=== PATIENT | male | born 1935 | race Caucasian/White ===

== ENCOUNTER 2020-08-05 07:58 | Outpatient (CLI) | payer MEDICARE, OTHER, SELFPAY ==
--- NOTE | 2020-08-05 | CT_ITS ---
WS: [id number] CT ABDOMEN AND PELVIS WITH CONTRAST HISTORY: GENERAL ABD PAIN TECHNIQUE: Imaging performed of the abdomen and pelvis with IV contrast. Single phase imaging of the abdomen. Coronal and sagittal reformats are submitted. All CT scans at [facility] use at least one of these dose optimization techniques: automated exposure control; mA and/or kV adjustment per patient size (includes targeted exams where dose is matched to clinical indication); or iterativ e reconstruction. IV CONTRAST: Omnipaque 300; 95 mL IV. Oral contrast: Yes. DLP: 1130.93 mGycm COMPARISON: None available. Lower thorax: Chronic emphysematous changes at the lung bases. Heart is normal size. Small hiatal her armando. Portion of the pancreas extends into the hiatal hernia. There are also additional small lymph no john within the fat. Liver/biliary system: Normal size liver. No intrahepatic duct dilatation. Gallbladder: Normal. No gallstones or wall thickening. No pericholecystic fluid. Pancreas: Atrophic pancreas. Portion of body of the pancreas extends superiorly into the hiatal herni a. 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 Adrenal glands: Normal. Right kidney: Cortical cyst upper pole measures 1.2 cm. No obstruction. Left kidney: Cortical cyst upper pole measures 1.2 cm. There are a few additional 2 small to characte rize hypodensities from the cortex. No obstruction. Aorta: Moderate atherosclerosis with no aneurysm. Lymphadenopathy: There are numerous lymph nodes throughout the abdomen and pelvis. Small lymph nodes surrounding the distal esophagus. Central mesenteric lymph nodes are subcentimeter. Larger lymph node s in the RIGHT lower quadrant and RIGHT pelvis. Lymph nodes measure up to 12 mm in short axis diamete r. Free fluid: None. GI tract: No GI tract obstruction. Mild thickening of the antrum. There is diffuse constipation. No c olonic wall thickening identified. The appendix is normal. Abdominal wall: Unremarkable abdominal wall. No hernia. Pelvis: Mild thickening of the bladder wall and a small LEFT lateral diverticulum measuring 13 mm. Pr ostate gland is slightly enlarged encroaching into the bladder. No enlarged inguinal lymph nodes. Bones: Advanced degenerative changes throughout the lumbar spine. Moderate RIGHT convex curvature lum bar spine. 20% compression fracture T12. CT/CT abdomen pelvis w con* [id number] IMPRESSION: 1. Numerous mesenteric and RIGHT lower quadrant/pelvis lymph nodes. Combinatio n of indeterminate and slightly enlarged lymph nodes. Consider lymphoma and met astatic adenopathy. 2. Diffuse constipation. 3. No adrenal mass. 4. Moderate size hiatal hernia with the pancreas being elevated into the herni a and adjacent small lymph nodes and venous congestion. 5. 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 6. Moderate atherosclerosis aorta. 7. No evidence for recurrent hernia.
[2020-08-05] MEDS: iohexol 300 mg/mL 100 mL Btl IV (10:01)
[2020-08-05] MEDS: iohexol 300 mg/mL 50 mL Btl PO (10:02)
== END 2020-08-05 07:59 | disposition home or self-care (01) ==
LOC: RADWPI 08:06
PROVIDERS: Family Provider Nurse Practitioner Family; PCP Nurse Practitioner Family; Visit Provider Nurse Practitioner Family
DX: R10.84 Generalized abdominal pain (principal); K59.00 Constipation, unspecified; K44.9 Diaphragmatic hernia without obstruction or gangrene; I70.0 Atherosclerosis of aorta
CPT/HCPCS: 74177; Q9967

== ENCOUNTER → 2020-08-16 17:06 | Outpatient (BNVA) | payer MEDICARE, OTHER, SELFPAY | PROVIDERS: Family Provider Nurse Practitioner Family; PCP Nurse Practitioner Family; Visit Provider Surgery | DX: Z11.59 Encounter for screening for other viral diseases (principal) | CPT/HCPCS: 87635 ==

== ENCOUNTER 2020-08-19 12:39 | Outpatient (CLI) | payer MEDICARE, OTHER, SELFPAY ==
--- NOTE | 2020-08-19 13:00 | CT_ITS ---
WS: [id number] CT scan of the chest with IV contrast, additional two-dimensional coronal and sagittal reconstruction was performed. 08/19/2020 Clinical Data: enlarged lymph nodes Comparison: CT chest, 08/28/2013. DLP: 897.[address] scans at [facility] use at least one of these dose optimization techniques: automat ed exposure control; mA and/or kV adjustment per patient size (includes targeted exams where dose is matched to clinical indication); or iterative reconstruction. Findings: No nodules, masses or effusions are seen. The lungs show hyperexpansion. There are peripheral interst itial changes in the left upper lobe and left lower lobe. Most likely these changes are result of chr onic interstitial lung disease. The thyroid gland shows normal enhancement. The heart size is normal with no pericardial effusion. The trachea bifurcates normally into the bronchi. The pulmonary arteria l system demonstrates no abnormalities or dilatations. The descending thoracic aorta shows calcificat ion and a small mural thrombus. There is no axillary or significant mediastinal adenopathy. There is a hiatal hernia which contains fatty material. The upper abdomen demonstrates bilateral renal cortical cysts. There is a small splenic remnant adjac ent to the posterior lateral upper left abdominal wall unchanged. Degenerative change of all thoracic vertebral bodies is seen with a T12 compression fracture. CT/CT chest w con* [id number] Impression: 1. Peripheral interstitial changes in the left upper lobe and left lower lobe m ost consistent with chronic interstitial lung disease. 2. Hiatal hernia. 3. Negative for lung nodules or masses.
[2020-08-19] MEDS: iodixanol 320 mg/mL 100mL Btl IV (13:18)
== END 2020-08-19 12:40 | disposition home or self-care (01) ==
LOC: RADWPI 12:43
PROVIDERS: Family Provider Nurse Practitioner Family; PCP Nurse Practitioner Family; Visit Provider Surgery
DX: R59.9 Enlarged lymph nodes, unspecified (principal); K44.9 Diaphragmatic hernia without obstruction or gangrene
CPT/HCPCS: 71260; Q9967

== ENCOUNTER 2020-08-22 08:01 | Day surgery (SDC) | payer MEDICARE, OTHER, SELFPAY ==
[2020-08-18 10:10] VITALS: BMI 24.3
[2020-08-22 07:59] VITALS: BP 191/104; PULSE 96; RESP 18; TEMP 37.2; O2SAT 94
[2020-08-22] MEDS: sodium chloride 0.9% 1,000 ML 30 ML IV (08:15)
--- NOTE | 2020-08-22 08:17 | ANES.PREANE2 ---
Pre-Anesthetic Assessment Pre-Anesthetic Assessment: Height/Weight: Height 1.78 m Weight 77.111 kg Temp Pulse Resp BP Pulse Ox 98.9 F 96 18 191/104 94 08/22/20 07:59 08/22/20 07:59 08/22/20 07:59 08/22/20 07:59 08/22/20 07:59 Preop Diagnosis: Abdominal lymphadenopathy Proposed Procedure: Operation Date: 08/22/20 09:10 Proposed Procedures p Colonoscopy(Not Applicable) - Nasir Martinez MD Familial anesthetic complications: PONV - kept overnight Was Beta Angel taken within 24 hours: N/A Last intake: NPO > 8 hrs Social: Social History: No alcohol and No tobacco Exam: Pre-Anes Outpt Exam: alert, oriented x 3, clear to auscultation bilaterally and regular rate & rhythm Airway: Cervical ROM: WNL MP: 4 Dentition: Other (bridge) Additional comments: small mouth opening CV/HEM: CV/HEM: HTN GI: GI: GERD Anesthetic Plan: ASA status: 2 Anesthesia: MAC Risk of > 500 ml blood loss (7ml/kg in children): No PFSH Anesthesia PFSH: Medical History (Updated 08/22/20 @ 07:25 by Nasir Martinez MD) GERD (gastroesophageal reflux disease) Glaucoma HTN (hypertension), benign Hypertension Surgical History H/O circumcision H/O left inguinal hernia repair H/O splenectomy Family History Other Cancer Denies family history of Diabetes CAD (coronary artery disease) Anesthesia complication Bleeding disorder Social History Smoking and tobacco status: never smoked Household members: spouse Marital status: Current occupational status: retired History of recent travel: No Data Anesthesia Cardiac Studies: No Data to Display
--- NOTE | 2020-08-22 08:23 | W.PM.OPSUD ---
Surgery/Procedure H&P Update DATE OF PROCEDURE: August 22, 2020 DATE H&P PERFORMED: 08/16/20 H&P UPDATE INFORMATION: I have reviewed H&P completed within last 30 days, I have examined patient prior to procedure and No changes to prior documentation PREOP DIAGNOSIS: Abdominal lymphadenopathy PLANNED PROCEDURE: Operation Date: 08/22/20 09:10 Proposed Procedures p Colonoscopy(Not Applicable) - Nasir Martinez MD
[2020-08-22 09:23] VITALS: BP 148/75; PULSE 60; RESP 16; TEMP 36.3; O2SAT 93
[2020-08-22 09:57] VITALS: BP 139/81; PULSE 60; RESP 18; O2SAT 98
--- NOTE | 2020-08-22 10:10 | ANE.PACU2 ---
Inpatient post-anesthesia follow up: Airway intact: Yes Vital signs: Temperature 97.4 F Pulse Rate 60 Respiratory Rate 18 Blood Pressure 139/81 Pulse Oximetry 98 Oxygen Delivery Me thod Room Air Oxygen Flow Rate Fraction of Inspir ed Oxygen Hydration adequate: Yes Nausea and vomiting: No Pain level: 1 Mental status: Baseline
== END 2020-08-22 10:10 | disposition home or self-care (01) ==
PROVIDERS: PCP Nurse Practitioner Family; Visit Provider Surgery
PROC: 0DJD8ZZ Inspection of Lower Intestinal Tract, Via Natural or Artificial Opening Endoscopic (ICD-10-PCS; CPT 45378; principal; 2020-08-22 09:10)
PROC: 0DJ08ZZ Inspection of Upper Intestinal Tract, Via Natural or Artificial Opening Endoscopic (ICD-10-PCS; CPT 43235; 2020-08-22 09:10)
DX: R59.1 Generalized enlarged lymph nodes (principal); K29.70 Gastritis, unspecified, without bleeding; K29.80 Duodenitis without bleeding; K64.8 Other hemorrhoids; K57.30 Diverticulosis of large intestine without perforation or abscess without bleeding; R10.9 Unspecified abdominal pain; Z79.82 Long term (current) use of aspirin; K21.9 Gastro-esophageal reflux disease without esophagitis; I10 Essential (primary) hypertension
CPT/HCPCS: 12345; 43239; 88305; G0121; J2704; J7030

== ENCOUNTER 2020-09-07 12:34 | Outpatient (CLI) | payer MEDICARE, OTHER, SELFPAY ==
[2020-09-07 13:51] LABS: Basophils # 0.1 10^3/uL (0.0-0.1); Basophils % 1.1 %; Eosinophils # 0.2 10^3/uL (0.0-0.8); Eosinophils % 1.7 %; Hematocrit 44.4 % (42.0-52.0); Hemoglobin 14.9 g/dL (11.7-16.6); Lymphocytes # 1.9 10^3/uL (0.8-4.8); Lymphocytes % 17.2 %; Mean Corpuscular HGB Conc 33.6 g/dL (30.0-36.0); Mean Corpuscular Hemoglobin 31.3 pg (28.0-34.0); Mean Corpuscular Volume 93.3 fL (80-94); Mean Platelet Volume 11.3 fL (7.4-10.4); Monocytes # 1.5 10^3/uL (0.2-0.9); Monocytes % 13.5 %; Neutrophils # 7.19 10^3/uL (1.8-7.7); Neutrophils % 66.2 %; Nucleated Red Blood Cells % 0 %; Platelet Count 293 10^3/cmm (130-400); Red Blood Count 4.76 10^6/uL (4.1-5.3); Red Cell Distribution Width 13.3 % (12.1-15.1); White Blood Count 10.9 10^3/uL (4.0-10.0)
[2020-09-07 14:42] LABS: Alanine Aminotransferase 21 U/L (0-41); Alkaline Phosphatase 121 IU/L (40-130); Anion Gap 14.3 (5-19); Aspartate Amino Transferase 20 U/L (0-40); Blood Urea Nitrogen 20 mg/dL (8-23); Calcium 9.1 mg/dL (8.5-10.5); Carbon Dioxide 24 mmol/L (22-29); Chloride 100 mmol/L (98-107); Globulin 3.6 g/dL (1.3-4.6); Glucose 132 mg/dL (65-115); Osmolality Calculated 282 mOsm/kg (285-295); Potassium 4.3 mmol/L (3.5-5.1); Sodium 134 mmol/L (136-145); Total Bilirubin 0.4 mg/dL (0.15-1.2); Total Protein 7.6 g/dL (6.6-8.7)
[2020-09-07 15:09] LABS: Lactate Dehydrogenase 202 U/L (135-225)
--- NOTE | 2020-09-07 15:11 | ONC CON_ITS ---
Dr. Ramirez New Patient Note Patient: Salbador Blankenship Unit #: [id number]: 1935 Dicatated By: Christiane Ramirez M.D.Date of Visit: Sep 07, 2020 Onc MED New Patient/Consult Referring Physician: Dr. TIFFANY HOLLINGSWORTH M.D. History of Present Illness: Mr. Dion Rios, is a 71-year-old gentleman with history of gross hematuria initially seen by urology on July 27, [address] scan of abdomen pelvis shows bladder mass and patient underwent cystoscopy/TURBT on August 02, 2020 and intraoperative findings include 2 areas of transitional cell carcinoma, one lateral to the left ureteral orifice and other on the posterior floor. 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 CT scan of abdomen pelvis done on September 02, 2020 showed left eccentric bladder wall thickening with calcification suspicious for neoplasm. Heterogeneously enhancing nodular enlarged prostate with indentation on the bladder. Normal seminal vesicles. A few slight prominent aorto caval lymph nodes largest measuring 8 mm. 4.4 mm left upper lobe noncalcified pulmonary nodule follow-up scan in 12 months recommended. Patient was seen by Dr. Mathias different treatment options were discussed, patient was referred to oncology clinic to discuss about role of chemotherapy and other options including bladder preservation and neoadjuvant chemotherapy. Patient denies any hematuria denies any lower abdominal pain denies any diarrhea or constipation denies any nausea or vomiting denies any fever chills denies any jaundice denies any hemoptysis or hematemesis. Patient has history of 55-year plus smoking quit about 5 years ago because of COPD, denies alcohol use. Past Medical History: Mr. Blankenship's medical history consists of gastroesophageal reflux disease, glaucoma, and hypertension. Past Surgical History: Mr. Sofia surgical/procedural history consists of hernia repair and splenectomy. Medications: amLODIPine Besylate 1 Tablet (of 5 mg) Oral daily, Aspirin 1 Tablet (of 81 mg) Tablet, enteric coated Oral daily, Docusate Sodium 1 Tablet (of 100 mg) Oral daily, Fish Oil 1 Capsule Oral daily, Latanoprost 1 Drop(s) (of 0.005 %) Solution Ophthalmic PRN, LORazepam 1 Tablet (of 0.5 mg) Oral PRN, NexIUM 24HR 1 Tablet (of 20 mg) Tablet, enteric coated Oral daily, Tamsulosin HCl 1 Capsule (of 0.4 mg) Oral daily, traMADol HCl 1 Tablet (of 50 mg) Oral four times a day Allergies: Ciprofloxacin HCl Social History: Mr. Blankenship is and he is retired. Mr. Blankenship quit smoking 60 years ago but had smoked 1.0 pack/day for 10 years. He has no history of drinking. Mr. Blankenship reports the following support systems: lives with spouse, significant other, family, or friends and lives in own house. Family History: Mr. Blankenship's mother at age 76. Mr. Blankenship's father at age 83. Review Of Symptoms: Constitutional - Appetite is diminished and weight is decreasing. No fever, night sweats, or hot flashes. Energy level is [id number], ENMT - No sinus congestion/drainage. No mouth sores. No sore throat or difficulty swallowing, Hematologic/Lymphatic - No abnormal bruising or bleeding, Respiratory - No shortness of breath. No cough. No pleuritic pain or hemoptysis, Cardiovascular - No angina pain. No palpitations, Gastrointestinal - No nausea or vomiting. No heartburn or acid reflux. No diarrhea. Positive for constipation. No blood in the stool or black stools, Genitourinary (M) - No dysuria or hematuria. No urinary frequency. No urgency or incontinence, Musculoskeletal - No joint or bone pain, Neurologic - No headache or dizziness. No numbness or tingling. No other focal neurologic symptoms, Psychiatric - No anxiety or depression. No insomnia. Vital Signs: Performed on Sep 07, 2020 13:35: 8, 23.70, 1.92 sq.m, 70.00 in, 95 % (LOW), 82 /min, 16 /min, 185/98 mm(hg) (HIGH), 99.6 F (HIGH), and 165.2 lbs (HIGH). Performance Status: 0 - Fully active, able to carry on all predisease activities without restrictions. (ECOG) Physical Examination: ENMT - No mouth sores, no thrush, no jaundice, Respiratory - Lungs are clear to auscultation, Cardiovascular - Regular rate and rhythm of heart, Abdomen - Soft, bowel sounds present, Extremities - No visible edema or rash. Lab/Imaging: Most recent lab results are not available for this patient. Impression: Muscle invasive high-grade invasive urothelial carcinoma, nested clear-cell variant with lamina propria invasion per TURBT/cystoscopy done on August 02, 2020 CT scan of abdomen pelvis done on September 02, 2020 showed no pelvic or inguinal lymphadenopathy, and left eccentric bladder wall thickening with calcifications suspicious for neoplasm. Heterogeneous enhancing nodular enlarged prostate with indentation on the bladder. 4.4 mm left lower lobe noncalcified pulmonary nodule follow-up CT scan in 12 months recommended COPD, 50+ years history of smoking, quit 5 years ago Plan: Discussed with patient regarding his disease status and various treatment options, as per NCCN guidelines in patients with muscle invasive bladder cancer if patient has localized disease with no evidence of carcinoma in situ or multifocal involvement, bladder preservation can be considered after maximal resection via TURBT, on the other hand in , multifocal disease or carcinoma in situ involvement, neoadjuvant chemotherapy with dose dense MVAC 3-4 cycles followed by cystectomy is a standard of care. Patient is exploring his options, at this point will refer him to radiation oncology for evaluation regarding bladder preservation and also refer him to Dr. Sandoval, urologist in [facility] for evaluation regarding cystectomy., Patient will return to clinic in 3 weeks with CBC CMP for further discussion Signed By: Christiane Ramirez M.D. <<Signature on File>>
--- NOTE | 2020-09-07 15:46 | ONC CON_ITS ---
Dr. Ramirez New Patient Note Patient: Salbador Blankenship Unit #: [id number]: 1935 Dicatated By: Christiane Ramirez M.D.Date of Visit: Sep 07, 2020 Onc MED New Patient/Consult Referring Physician: Dr. TIFFANY HOLLINGSWORTH M.D. History of Present Illness: Mr. Salbador Blankenship, is a 85-year-old gentleman with a history of left inguinal hernia repair and recently noted some right groin pain and puffiness of few weeks duration, pain was progressive, for which he underwent CT scan of abdomen pelvis on August 05, 2020, which showed numerous lymph nodes throughout the abdomen pelvis. Small lymph nodes surrounding the distal esophagus. Central mesenteric lymph nodes are subcentimeter larger lymph node in the right lower quadrant and right pelvis and lymph nodes measuring 12 mm in short axis. Abdominal wall shows no hernia and CT scan of chest was done on August 19, 2020 which showed no axillary or mediastinal lymphadenopathy and findings suggestive of chronic interstitial lung disease. Patient was referred to surgery and he underwent EGD and colonoscopy on August 22, 2020 which showed nonerosive gastritis and in the sigmoid colon scattered diverticulosis and internal hemorrhoids in the rectum. Patient denies any night sweats, denies any weight loss, denies any recurrent fever, denies any history of recurrent infection, denies any history of chronic diarrhea or constipation, denies any history of jaundice, denies any hematuria denies any history of chronic bladder infection. Patient has chronic mild to moderate right lower quadrant/inguinal area pain for which he is being evaluated by surgery. Patient denies any smoking or alcohol use. Past Medical History: Mr. Blankenship's medical history consists of gastroesophageal reflux disease, glaucoma, and hypertension. Past Surgical History: Mr. Blankenship's surgical/procedural history consists of hernia repair and splenectomy. Medications: amLODIPine Besylate 1 Tablet (of 5 mg) Oral daily, Aspirin 1 Tablet (of 81 mg) Tablet, enteric coated Oral daily, Docusate Sodium 1 Tablet (of 100 mg) Oral daily, Fish Oil 1 Capsule Oral daily, Latanoprost 1 Drop(s) (of 0.005 %) Solution Ophthalmic PRN, LORazepam 1 Tablet (of 0.5 mg) Oral PRN, NexIUM 24HR 1 Tablet (of 20 mg) Tablet, enteric coated Oral daily, Tamsulosin HCl 1 Capsule (of 0.4 mg) Oral daily, traMADol HCl 1 Tablet (of 50 mg) Oral four times a day Allergies: Ciprofloxacin HCl Social History: Mr. Blankenship is and he is retired. Mr. Blankenship quit smoking 60 years ago but had smoked 1.0 pack/day for 10 years. He has no history of drinking. Mr. Blankenship reports the following support systems: lives with spouse, significant other, family, or friends and lives in own house. Family History: Mr. Blankenship's mother at age 76. Mr. Blankenship's father at age 83. Review Of Symptoms: Constitutional - Appetite is diminished and weight is decreasing. No fever, night sweats, or hot flashes. Energy level is [id number], ENMT - No sinus congestion/drainage. No mouth sores. No sore throat or difficulty swallowing, Hematologic/Lymphatic - No abnormal bruising or bleeding, Respiratory - No shortness of breath. No cough. No pleuritic pain or hemoptysis, Cardiovascular - No angina pain. No palpitations, Gastrointestinal - No nausea or vomiting. No heartburn or acid reflux. No diarrhea. Positive for constipation. No blood in the stool or black stools, Genitourinary (M) - No dysuria or hematuria. No urinary frequency. No urgency or incontinence, Musculoskeletal - No joint or bone pain, Neurologic - No headache or dizziness. No numbness or tingling. No other focal neurologic symptoms, Psychiatric - No anxiety or depression. No insomnia. Vital Signs: Performed on Sep 07, 2020 13:35: 8, 23.70, 1.92 sq.m, 70.00 in, 95 % (LOW), 82 /min, 16 /min, 185/98 mm(hg) (HIGH), 99.6 F (HIGH), and 165.2 lbs (HIGH). Performance Status: 0 - Fully active, able to carry on all predisease activities without restrictions. (ECOG) Physical Examination: ENMT - No mouth sores, no thrush, no jaundice, Respiratory - Lungs are clear to auscultation, Cardiovascular - Regular rate and rhythm of heart, Abdomen - Soft, bowel sounds present, Extremities - No visible edema or rash. Lab/Imaging: Most recent lab results are not available for this patient. Impression: Abdominal lymphadenopathy, no organomegaly seen on CT scan of chest abdomen pelvis done in July 2020 showed no axillary or significant mediastinal lymphadenopathy, but there are numerous lymph nodes throughout the abdomen and pelvis. Small lymph nodes surrounding the distal esophagus. Central mesenteric lymph nodes are subcentimeter. Larger lymph nodes are in the right lower quadrant and right pelvis. Lymph node measures up to 12 mm in short axis. Prior splenectomy node autoinfarction. History of left inguinal repair, Hypertension Plan: Discussed with patient regarding his labs which showed White blood count 10.9 hemoglobin 14.9 hematocrit 44.4 platelets 293,000 neutrophils 66% lymphocytes 17%, LDH 202, CMP within normal limits except glucose 132. and CT scan of chest abdomen pelvis which was done in July 2020 shows mild but extensive intra-abdominal lymphadenopathy and distal esophageal lymphadenopathy maximum size was [address] scan of chest abdomen pelvis done in July 2020 etiology remains unclear, could be inflammatory, or subclinical infection or lymphoproliferative disorder cannot be ruled out. Patient has no B symptoms, no peripheral lymphadenopathy no organomegaly. His CBC shows mild leukocytosis could be due to asplenia or underlying myelo/lympho proliferative disorder, or chronic inflammation., We will repeat his CBC with differential in a month, if there is a progression, may consider bone marrow evaluation otherwise we will repeat CT scan of abdomen pelvis in 3 months with special attention to intra-abdominal lymph nodes if there is a progression, consider lymph node biopsy. Case was discussed with Dr. Hollingsworth, surgery, at this point, lymph nodes are too small to biopsy. Patient was advised in case he has any B symptoms like recurrent drenching sweating or fever or weight loss he need to call us otherwise we will see him back in 1 month with CBC with differential and LDH Signed By: Christiane Ramirez M.D. <<Signature on File>>
== END 2020-09-07 12:35 | disposition home or self-care (01) ==
LOC: ONCMED 12:44
PROVIDERS: PCP Nurse Practitioner Family; Visit Provider Internal Medicine Hematology & Oncology
DX: R59.0 Localized enlarged lymph nodes (principal); I10 Essential (primary) hypertension; D72.829 Elevated white blood cell count, unspecified
CPT/HCPCS: 36415; 80053; 83615; 85025; 99204

== ENCOUNTER → 2020-09-16 11:23 | Outpatient (BNVA) | payer MEDICARE, OTHER, SELFPAY | PROVIDERS: PCP Nurse Practitioner Family; Visit Provider Surgery | DX: Z11.59 Encounter for screening for other viral diseases (principal); K46.9 Unspecified abdominal hernia without obstruction or gangrene | CPT/HCPCS: 87635 ==

== ENCOUNTER 2020-09-21 09:03 | Day surgery (SDC) | payer MEDICARE, OTHER, SELFPAY ==
[2020-09-20 11:02] VITALS: BMI 23.6
[2020-09-21] VITALS (7 sets, daily range): BP systolic 126–161; BP diastolic 57–76; PULSE 91–106; RESP 14–22; TEMP 36.5–36.8; O2SAT 93–99
--- NOTE | 2020-09-21 09:26 | W.PM.OPSUD ---
Surgery/Procedure H&P Update DATE OF PROCEDURE: September 21, 2020 DATE H&P PERFORMED: 08/16/20 H&P UPDATE INFORMATION: I have reviewed H&P completed within last 30 days, I have examined patient prior to procedure and No changes to prior documentation PREOP DIAGNOSIS: inguinal hernia PLANNED PROCEDURE: Operation Date: 09/21/20 10:35 Proposed Procedures p Laparoscopic possible open right Inguinal Hernia Repair w/Mesh [id number] k40.90(Right) - Nasir Martinez MD
[2020-09-21] MEDS: sodium chloride 0.9% 1,000 ML 30 ML IV (09:36)
--- NOTE | 2020-09-21 09:55 | ANES.PREANE2 ---
Pre-Anesthetic Assessment Pre-Anesthetic Assessment: Height/Weight: Height 1.78 m Weight 74.843 kg Temp Pulse Resp BP Pulse Ox 98.2 F 106 H 18 161/72 94 09/21/20 09:26 09/21/20 09:26 09/21/20 09:26 09/21/20 09:26 09/21/20 09:26 Preop Diagnosis: inguinal hernia Proposed Procedure: Operation Date: 09/21/20 10:35 Proposed Procedures p Laparoscopic possible open right Inguinal Hernia Repair w/Mesh [id number] k40.90(Right) - Nasir Martinez MD Familial anesthetic complications: PONV Was Beta Angel taken within 24 hours: N/A Last intake: Intake Last Liquid Date 09/20/20 Last Liquid Time 10:00 Last Solid Date 09/20/20 Last Solid Time 10:00 Social: Social History: No alcohol and No tobacco Airway: Cervical ROM: WNL MP: 4 Dentition: Other (bridge) Additional comments: Small mouth opening, with large tongue CV/HEM: CV/HEM: HTN GI: GI: GERD Anesthetic Plan: ASA status: 2 Anesthesia: General Risk of > 500 ml blood loss (7ml/kg in children): No Meds/Allergies Current Medications: Current Medications Generic Name Dose Route Start Last Admin Trade Name Freq PRN Reason Stop Dose Admin Sodium Chloride 1,000 mls @ 30 ml s/hr 09/21/20 09:30 09/21/20 09:36 Sodium Chloride 0.9% IV 09/22/20 09:29 30 mls/hr .Q24H DANNIELLE Administration PFSH Anesthesia PFSH: Medical History GERD (gastroesophageal reflux disease) Glaucoma HTN (hypertension), benign Hypertension Surgical History (Updated 09/21/20 @ 09:38 by Nasir Martinez MD) H/O circumcision H/O esophagogastroduodenoscopy (09/16/20) H/O left inguinal hernia repair H/O splenectomy Status post colonoscopy (09/16/20) Status post right inguinal hernia repair (09/21/20) Family History Other Cancer Denies family history of Diabetes CAD (coronary artery disease) Anesthesia complication Bleeding disorder Social History Smoking and tobacco status: never smoked Household members: spouse Marital status: Current occupational status: retired History of recent travel: No Data Anesthesia Cardiac Studies: No Data to Display
--- NOTE | 2020-09-21 11:38 | PM.OP ---
Operative Report Date of procedure: September 21, 2020 Pre-op Diagnosis: inguinal hernia Post-op Diagnosis: Right reducible indirect inguinal hernia Procedure Done: Laparoscopic total extraperitoneal repair of right reducible indirect inguinal hernia with Surgimax 3D mesh Pathology: none sent Surgeon: Nasir Martinez Anesthesia: General Condition: stable Disposition: PACU Procedure: The patient was taken to the operating room. After IV antibiotic was administered, the abdomen was prepped and draped in a sterile manner. Using a 15 blade, a 1.0 cm transverse incision was made infraumbilically on the right side. Subcutaneous tissue was divided using electrocautery and the anterior rectus sheath divided using an 11 blade. The rectus muscle was retracted laterally and the extraperitoneal space identified. A 11 mm port was placed and 12 mm of pneumoperitoneum was created. A 10 mm 30? scope was introduced and the retrorectus space was opened using the camera up to the pubic symphysis and 5 mm ports were placed in the midline, one 2-fingerbreadths above the pubic symphysis and the other midway between these two ports under direct visualization. Blunt dissection was carried out to open up the tissue in the midline and to the pubic symphysis, which was identified. The dissection was then carried laterally where the iliopubic tract was identified. There was no femoral, obturator or direct hernia noted. The inferior epigastric artery was identified and dissection was carried posterior to it and laterally, the space was opened up to the level of the umbilicus superior to the anterior superior iliac spine. I then proceeded to dissect out the spermatic cord and the indirect hernial sac was reduced . 16 x 10cm Surgimax 3D mesh was rolled and introduced through the 10 mm port and then rolled laterally and apposed well against the abdominal wall to cover the myopectineal orifice completely. 10 Cc of 0.5% Marcaine was infiltrated into the preperitoneal space. The extraperitoneal space was desufflated under direct visualization to ensure no slippage of hernial sac under the mesh. All ports were removed, the anterior rectus fascia at the infraumbilical port closed using figure of eight 0 Vicryl sutures, subcutaneous tissue approximated using 3-0 Vicryl sutures and skin at all three port sites were closed using running subcuticular 4-0 Monocryl sutures and Dermabond. 10 mL of 0.5% Marcaine was infiltrated at the port sites. The patient was stable throughout the procedure.
== END 2020-09-21 12:43 | disposition home or self-care (01) ==
PROVIDERS: PCP Nurse Practitioner Family; Visit Provider Surgery
PROC: (CPT 49650; principal; 2020-09-21 10:35)
DX: K40.90 Unilateral inguinal hernia, without obstruction or gangrene, not specified as recurrent (principal); I10 Essential (primary) hypertension; Z79.82 Long term (current) use of aspirin
CPT/HCPCS: 49650; 12345; C1781; J0690; J2370; J2704; J2710; J3010; J3490; J7030

== ENCOUNTER 2021-01-02 07:57 | Outpatient (CLI) | payer MEDICARE, OTHER, SELFPAY ==
[2021-01-02 08:39] LABS: Basophils # 0.1 10^3/uL (0.0-0.1); Basophils % 1.2 %; Eosinophils # 0.1 10^3/uL (0.0-0.8); Eosinophils % 1.7 %; Hematocrit 41.7 % (42.0-52.0); Lymphocytes # 1.4 10^3/uL (0.8-4.8); Lymphocytes % 16.6 %; Mean Corpuscular HGB Conc 33.6 g/dL (30.0-36.0); Mean Corpuscular Hemoglobin 32.1 pg (28.0-34.0); Mean Corpuscular Volume 95.6 fL (80-94); Mean Platelet Volume 10.9 fL (7.4-10.4); Monocytes # 1.1 10^3/uL (0.2-0.9); Monocytes % 12.9 %; Neutrophils # 5.56 10^3/uL (1.8-7.7); Neutrophils % 67.5 %; Nucleated Red Blood Cells % 0 %; Platelet Count 269 10^3/cmm (130-400); Red Blood Count 4.36 10^6/uL (4.1-5.3); Red Cell Distribution Width 13.7 % (12.1-15.1); White Blood Count 8.2 10^3/uL (4.0-10.0)
[2021-01-02 08:41] LABS: Alanine Aminotransferase 12 U/L (0-41); Albumin Level 3.9 g/dL (3.5-5.2); Alkaline Phosphatase 102 IU/L (40-130); Anion Gap 14.4 (5-19); Aspartate Amino Transferase 16 U/L (0-40); Blood Urea Nitrogen 24 mg/dL (8-23); Calcium 9.1 mg/dL (8.5-10.5); Carbon Dioxide 25 mmol/L (22-29); Chloride 102 mmol/L (98-107); Globulin 3.7 g/dL (1.3-4.6); Glucose 118 mg/dL (65-115); Lactate Dehydrogenase 211 U/L (135-225); Osmolality Calculated 289 mOsm/kg (285-295); Potassium 4.4 mmol/L (3.5-5.1); Sodium 137 mmol/L (136-145); Total Bilirubin 0.6 mg/dL (0.15-1.2); Total Protein 7.6 g/dL (6.6-8.7)
--- NOTE | 2021-01-02 16:58 | ONC FU_ITS ---
Dr. Ramirez follow up note Patient: Salbador Blankenship Unit #: [id number]: [id number] Dicatated By: Christiane Ramirez M.D.Date of Visit:Jan 02, 2021 Onc Med Follow-up/Prog Note History of Present Illness: Mr. Salbador Blankenship, is a 85-year-old gentleman with a history of left inguinal hernia repair and recently noted some right groin pain and puffiness of few weeks duration, pain was progressive, for which he underwent CT scan of abdomen pelvis on August 05, 2020, which showed numerous lymph nodes throughout the abdomen pelvis. Small lymph nodes surrounding the distal esophagus. Central mesenteric lymph nodes are subcentimeter larger lymph node in the right lower quadrant and right pelvis and lymph nodes measuring 12 mm in short axis. Abdominal wall shows no hernia and CT scan of chest was done on August 19, 2020 which showed no axillary or mediastinal lymphadenopathy and findings suggestive of chronic interstitial lung disease. Patient was referred to surgery and he underwent EGD and colonoscopy on August 22, 2020 which showed nonerosive gastritis and in the sigmoid colon scattered diverticulosis and internal hemorrhoids in the rectum. Patient denies any night sweats, denies any weight loss, denies any recurrent fever, denies any history of recurrent infection, denies any history of chronic diarrhea or constipation, denies any history of jaundice, denies any hematuria denies any history of chronic bladder infection. Patient has chronic mild to moderate right lower quadrant/inguinal area pain for which he is being evaluated by surgery. Patient denies any smoking or alcohol use. Came for follow-up, denies any specific complaints, no fever chills, no nausea or vomiting, no diarrhea constipation, no night sweats, no weight loss, no recurrent fever, no peripheral lymphadenopathy Medications: amLODIPine Besylate 1 Tablet (of 5 mg) Oral daily, Aspirin 1 Tablet (of 81 mg) Tablet, enteric coated Oral daily, Docusate Sodium 1 Tablet (of 100 mg) Oral daily, Fish Oil 1 Capsule Oral daily, Latanoprost 1 Drop(s) (of 0.005 %) Solution Ophthalmic PRN, LORazepam 1 Tablet (of 0.5 mg) Oral PRN, NexIUM 24HR 1 Tablet (of 20 mg) Tablet, enteric coated Oral daily, Tamsulosin HCl 1 Capsule (of 0.4 mg) Oral daily, traMADol HCl 1 Tablet (of 50 mg) Oral four times a day Allergies: Ciprofloxacin HCl Review of Systems: Review of Systems is not available for this patient. Vital Signs: Performed on Jan 02, 2021 09:35 Height - 70.00 in Weight - 169 lbs (HIGH) BSA - 1.94 sq.m BMI - 24.25 Temperature - 98.3 F (LOW) Pulse - 91 /min Respiration - 18 /min BP - 158/86 mm(hg) (HIGH) O2 Sat - 94 % (LOW) Pain - 0 Fatigue - 0 Performance Status: 1 - No physically strenuous activity, but ambulatory and able to carry out light or sedentary work (e.g. office work, light house work). (ECOG) Physical Examination: ENMT - No mouth sores, no thrush, no jaundice, Respiratory - Lungs are clear to auscultation, Cardiovascular - Regular rate and rhythm of heart, Abdomen - Soft, bowel sounds present, Extremities - No visible edema. Lab/Imaging: Test performed on Sep 07, 2020 13:11 LDH (Total) 202 U/L Sodium 134 mmol/L Potassium 4.3 mmol/L Chloride 100 mmol/L CO2 24 mmol/L Anion Gap 14.3 BUN 20 mg/dL Creatinine 1.2 mg/dL Cr Clearance (Est) 49.4400 mL/min Glucose 132 mg/dL Osmolality - Calculated 282 mOsm/kg Calcium 9.1 mg/dL Protein, Total 7.6 g/dL Albumin 4.0 g/dL Globulin 3.6 g/dL Bilirubin, Total 0.4 mg/dL ALT (SGPT) 21 U/L AST (SGOT) 20 U/L Alkaline Phosphatase 121 IU/L WBC 10.9 10 3/uL RBC 4.76 10 6/uL HGB 14.9 g/dL HCT 44.4 % MCV 93.3 fL MCH 31.3 pg MCHC 33.6 g/dL RDW 13.3 % Platelet Count 293 10 3/cmm MPV 11.3 fL Neutrophils 7.19 10 3/uL Lymphocytes 1.9 10 3/uL Monocytes 1.5 10 3/uL Eosinophils 0.2 10 3/uL Basophils 0.1 10 3/uL Neutrophil % 66.2 % Lymphocyte % 17.2 % Monocyte % 13.5 % Eosinophil % 1.7 % Basophils % 1.1 % NRBC % 0 % Impression: Abdominal lymphadenopathy, no organomegaly seen on CT scan of chest abdomen pelvis done in July 2020 showed no axillary or significant mediastinal lymphadenopathy, but there are numerous lymph nodes throughout the abdomen and pelvis. Small lymph nodes surrounding the distal esophagus. Central mesenteric lymph nodes are subcentimeter. Larger lymph nodes are in the right lower quadrant and right pelvis. Lymph node measures up to 12 mm in short axis. Prior splenectomy node autoinfarction. History of left inguinal repair, Hypertension Plan: Discussed with patient regarding his labs white blood count 8.2 hemoglobin 14 hematocrit 41.7 platelets 269,000 with a normal differential CMP partially available but within normal range LDH is 211 Clinically, patient doing well with no new signs symptom, no B symptoms, no peripheral lymphadenopathy or abdominal fullness, his follow-up labs shows resolution of mild leukocytosis with a normal hemoglobin and platelets and LDH, will continue to monitor he will return to clinic in 3 months with CBC CMP, LDH and follow-up CT scan of chest abdomen pelvis Signed By: Christiane Ramirez M.D. <<Signature on File>>
== END 2021-01-02 07:58 | disposition home or self-care (01) ==
LOC: ONCMED 07:59
PROVIDERS: PCP Nurse Practitioner Family; Visit Provider Internal Medicine Hematology & Oncology
DX: R59.0 Localized enlarged lymph nodes (principal); I10 Essential (primary) hypertension; Z98.890 Other specified postprocedural states; Z79.899 Other long term (current) drug therapy
CPT/HCPCS: 36415; 80053; 83615; 85025; 99214

== ENCOUNTER 2021-08-22 05:13 | Emergency (ER) | payer MEDICARE, OTHER, SELFPAY ==
[2021-08-22] VITALS (10 sets, daily range): BP systolic 123–178; BP diastolic 67–85; PULSE 78–93; RESP 15–29; TEMP 36.6–37.1; O2SAT 94–96; BMI 24.4
--- NOTE | 2021-08-22 05:21 | CTR_ITS ---
PROCEDURE INFORMATION: Exam: CT Head Without Contrast Exam date and time: 08/22/2021 5:21 AM Age: 86 years old Clinical indication: Weakness, extremity; Additional info: CVA TECHNIQUE: Imaging protocol: Computed tomography of the head without contrast. Radiation optimization: All CT scans at this facility use at least one of these dose optimization techniques: automated exposure control; mA and/or kV adjustment per patient size (includes targeted exams where dose is matched to clinical indication); or iterative reconstruction. COMPARISON: CT head wo con* [id number] 12/14/2018 7:46 PM RADIATION DOSE METRICS: Total DLP (mGy-cm): 946.68 FINDINGS: Brain: Age appropriate atrophy and small vessel ischemic change. There is a subtle region of low attenuation in the cortex of the right frontal lobe apex, series 2 images 44-46, suspicious for an acute infarct. No evidence of intracranial hemorrhage, mass effect, midline shift or extra-axial fluid collections. Midline structures are normal. Cerebral ventricles: No ventriculomegaly. Paranasal sinuses: Mucosal thickening in the ethmoid and maxillary sinuses. Mastoid air cells: Visualized mastoid air cells are well aerated. Orbital cavity: The patient has had bilateral lens replacement surgery. Vasculature: Carotid and vertebral artery atherosclerotic calcification. Bones/joints: Unremarkable. No acute fracture. Soft tissues: Unremarkable. 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 Radiation Dose CTDIVOL = (mGy): DLP = 946.68 (mGy-cm)
--- NOTE | 2021-08-22 05:26 | ECG_ITS ---
[facility] Test Date: 2021-08-22 Pat Name: Salbador Blankenship Department: Room: Gender: Male Sander Portable Machine: : 1935 Requested By: Gm Mendez Order Number: [id number] Kenny MD: Jhon Davenport M.D. Measurements Intervals [place] Rate: 78 P: 3 PA: 210 QRS: -42 QRSD: 102 T: 83 QT: 365 QTc: 418 Interpretive Statements SINUS RHYTHM WITH FIRST DEGREE AV BLOCK LEFT AXIS DEVIATION [QRS AXIS < -30] LEFT VENTRICULAR HYPERTROPHY AND ST-T CHANGE [VOLTAGE CRITERIA PLUS ST/T ABNORMALITY] Compared to ECG 12/14/2018 20:55:53 First degree AV block now present Left-axis deviation now present Left ventricular hypertrophy now present ST (T wave) deviation now present T-wave abnormality no longer present Electronically Signed On 08-22-2021 23:27:14 CDT by Jhon Davenport M.D. [id number]
--- NOTE | 2021-08-22 05:26 | XRR_ITS ---
PROCEDURE INFORMATION: Exam: XR Chest Exam date and time: 08/22/2021 5:26 AM Age: 86 years old Clinical indication: Other: Weakness TECHNIQUE: Imaging protocol: XR of the chest. Views: 1 view. COMPARISON: CT chest w con* [id number] 08/19/2020 1:09 PM FINDINGS: Lungs: Unremarkable. No consolidation. Pleural spaces: Unremarkable. No pleural effusion. No pneumothorax. Heart/Mediastinum: Unremarkable. No cardiomegaly. Bones/joints: Degenerative changes in the spine and left shoulder. There is an old fracture of the left 4th rib. XR/XR chest 1V portable [id number] IMPRESSION: No acute cardiopulmonary abnormality. Radiation Dose CTDIVOL = (mGy): DLP = (mGy-cm)
--- NOTE | 2021-08-22 05:27 | ED_ITS ---
Documented by User: Gm Mendez MD 08/22/21 05:30 HPI - Neuro Symptoms/Deficit General: Chief Complaint: ER Hold Stated Complaint: WEAKNESS Time Seen by Provider: 08/22/21 05:21 Source: patient Mode of arrival: ambulatory Limitations: no limitations History of Present Illness: HPI Narrative: 86-year-old male who states regular bed this morning he was having a difficult time speaking and having left-sided weakness. He states he is unable to walk. His states that he has had some left-sided facial droop. States he feels like his speech is gotten a little better he still has some some dysarthria states the strength is gotten little better to please have a hard time making a fist or having strength in his left hand. His last known normal was at 5:30 PM when he ate dinner. Denies any headache denies any chest pain. Associated symptoms: Deny chest pain, headache(s), nausea or vomiting Review of Systems Const: Denies: fever(s), chills, body aches or change in appetite Eyes: Denies: blurry vision or eye discomfort ENMT: Denies: throat pain or dental pain Card: Denies: chest pain Resp: Denies: dyspnea GI: Denies: abdominal pain, nausea, vomiting or diarrhea : Denies: dysuria Musc: Denies: neck pain or back pain Skin/Breast: Denies: rash Neuro: Reports: weakness in extremities and Slurred speech present; Denies: headache(s) Psych: Denies: depression Doc/Lymph: Denies: easy bruising All/Imm: Denies: urticaria PFSH ED PFSH: Medical History (Updated 08/31/21 @ 09:22 by Salo Funk DO) Carotid artery disease GERD (gastroesophageal reflux disease) Glaucoma HTN (hypertension), benign Hypertension Lymphadenopathy Abdominal, followed by hematology/oncology Surgical History H/O circumcision H/O esophagogastroduodenoscopy (09/16/20) H/O left inguinal hernia repair H/O splenectomy Status post colonoscopy (09/16/20) Status post right inguinal hernia repair (09/21/20) Family History Other Cancer Denies family history of Diabetes CAD (coronary artery disease) Anesthesia complication Bleeding disorder Social History Household members: spouse Marital status: Current occupational status: retired History of recent travel: No NIH stroke score NIHSS: Level Of Consciousness - 1a: 0 Level Of Consciousness Questions - 1b: Both Correct Level Of Consciousness Commands - 1c: Both Correct Best Gaze - 2: Normal Visual Mason - 3: No Visual Loss Facial Palsy - 4: Minor Paralysis Motor Arm Right - 5: No Drift Motor Arm Left - 5: Drift Motor Leg Right - 6: No Drift Motor Leg Left - 6: No Drift Limb Ataxia - 7: Absent Sensory - 8: Normal Best Language - 9: No Aphasia Dysarthia - 10: Mild/Moderate Dysarthia Extinction And Inattention - 11: 0 Score: Total Score: 3 Physical Exam Const: COMMON NORMALS: no acute distress, patient oriented x3, healthy appearing and alert ORIENTATION/CONSCIOUSNESS: Yes oriented to person and Yes oriented to place HENMT: COMMON NORMALS: normocephalic and atraumatic HEAD & SCALP: normocephalic and atraumatic Eye: COMMON NORMALS: Equal, round and reactive pupils present and EOMs intact bilaterally PUPIL: Yes Equal, round and reactive pupils present Neck/C-Spine: COMMON NORMALS: full ROM and supple Chest: COMMONS NORMALS: normal inspection of the chest and normal palpation of entire chest wall Resp: COMMON NORMALS: normal respiratory effort, No retractions, No use of accessory muscles and clear to auscultation bilaterally AUSCULTATION: clear to auscultation bilaterally Cardio: COMMON NORMALS: regular rate, regular rhythm and No murmurs present (Cardio) RATE: regular rate RHYTHM: regular rhythm GI: COMMON NORMALS: Normal to inspection, nondistended, normoactive bowel sounds present, Soft to palpation, non-tender and no masses PALPATION: Yes Soft to palpation Extremity: COMMON NORMALS: normal to inspection and full ROM Neuro: COMMON NORMALS: patient oriented x3 and moves all extremities SENSORIUM/ORIENTATION: Yes alert, Yes oriented to person and Yes oriented to place SPEECH: Other neuro speech findings (slight dysarthia) OTHER: slight left sided facial droop Psych: COMMON NORMALS: mental status grossly normal, Normal thought process present and cooperative THOUGHT PROCESS: Normal thought process present Skin: COMMON NORMALS: no rashes or lesions noted and no wounds GENERAL SKIN EXAM: no rashes or lesions noted Course Vital Signs: Vital signs: Vital Signs Temperature 98.2 F 08/22/21 14:23 Pulse Rate 85 08/22/21 23:43 Respiratory Rate 16 08/22/21 23:43 Blood Pressure 123/74 08/22/21 23:43 Pulse Oximetry 95 08/22/21 23:43 MDM - Neuro Symptoms/Deficit Lab Data: Labs: Lab Results 08/22/21 08/22/21 08/22/21 05:34 05:35 05:35 WBC 10.5 10^3/uL H 10 ^3/uL (4.0-10.0) RBC 4.63 10^6/uL 10^6 /uL (4.1-5.3) Hgb 15.2 g/dL g/dL (11.7-16.6) Hct 43.7 % % (42.0-52.0) MCV 94.4 fl H fl (80-94) MCH 32.8 pg pg (28.0-34.0) MCHC 34.8 g/dL g/dL (30.0-36.0) RDW 13.9 % % (12.1-15.1) Plt Count 244 10^3/cmm 10^3 /cmm (130-400) MPV 11.3 fL H fL (7.4-10.4) Neut % (Auto) 69.9 % % Lymph % (Auto) 15.7 % % [place] % (Auto) 11.1 % % Eos % (Auto) 1.9 % % Baso % (Auto) 1.0 % % Neut # (Auto) 7.34 10^3/uL 10^3 /uL (1.8-7.7) Lymph # (Auto) 1.7 10^3/uL 10^3/ uL (0.8-4.8) [place] # (Auto) 1.2 10^3/uL H 10^ 3/uL (0.2-0.9) Eos # (Auto) 0.2 10^3/uL 10^3/ uL (0.0-0.8) Baso # (Auto) 0.1 10^3/uL 10^3/ uL (0.0-0.1) Nucleated RBC % (a uto) 0 % % Nucleated RBCs # 0.0 /100WBC /100W BC PT 13.40 SECONDS SEC ONDS (12.1-14.9) INR 0.99 (0.8-1.2) Sodium Potassium Chloride Carbon Dioxide Anion Gap BUN Creatinine GFR Calculation Glucose POC Glucose 120 mg/dL H mg/dL (70-110) Calculated Osmolal ity Calcium Total Bilirubin AST ALT Alkaline Phosphata se Troponin T Baselin e Troponin T 120 Min [place] Troponin T Troponin T Hi Sens 6Hr Troponin T Hi Sens 6Hr Delta Total Protein Albumin Globulin Urine Color Urine Appearance Urine pH Ur Specific Gravit y Urine Protein Urine Glucose (UA) Urine Ketones Urine Blood Urine Nitrate Urine Bilirubin Urine Urobilinogen Ur Leukocyte Aud[place] ase Urine RBC Urine WBC Ur Squamous Epith Cells Amorphous Sediment Urine Bacteria 08/22/21 08/22/21 08/22/21 05:35 05:35 06:10 WBC RBC Hgb Hct MCV MCH MCHC RDW Plt Count MPV Neut % (Auto) Lymph % (Auto) [place] % (Auto) Eos % (Auto) Baso % (Auto) Neut # (Auto) Lymph # (Auto) [place] # (Auto) Eos # (Auto) Baso # (Auto) Nucleated RBC % (a uto) Nucleated RBCs # PT INR Sodium 139 mmol/L mmol/L (136-145) Potassium 4.3 mmol/L mmol/L (3.5-5.1) Chloride 104 mmol/L mmol/L (98-107) Carbon Dioxide 23 mmol/L mmol/L (22-29) Anion Gap 16.3 (5-19) BUN 24 mg/dL H mg/dL (8-23) Creatinine 1.2 mg/dL mg/dL (0.7-1.2) GFR Calculation Not Reportable Glucose 117 mg/dL H mg/dL (65-115) POC Glucose Calculated Osmolal ity 293 mOsm/kg mOsm/ kg (285-295) Calcium 9.3 mg/dL mg/dL (8.5-10.5) Total Bilirubin 0.6 mg/dL mg/dL (0.15-1.2) AST 16 U/L U/L (0-40) ALT 14 U/L U/L (0-41) Alkaline Phosphata se 91 IU/L IU/L (40-130) Troponin T Baselin e 23 ng/L H ng/L (0-15) Troponin T 120 Min [place] Troponin T Troponin T Hi Sens 6Hr Troponin T Hi Sens 6Hr [place] Total Protein 7.7 g/dL g/dL (6.6-8.7) Albumin 4.0 g/dL g/dL (3.5-5.2) Globulin 3.7 g/dL g/dL (1.3-4.6) Urine Color Straw (Yellow) Urine Appearance Clear (CLEAR) Urine pH 7 (5-7) Ur Specific Gravit y 1.000 L (1.005-1.030) Urine Protein 1+ H (Negative) Urine Glucose (UA) Norm (Normal) Urine Ketones Negative (Negative) Urine Blood Neg (Negative) Urine Nitrate Negative (Negative) Urine Bilirubin Neg (Negative) Urine Urobilinogen Norm mg/dL mg/dL (Negative) Ur Leukocyte Audelia ase Negative (Negative) Urine RBC 0-4 /hpf H /hpf (0-2) Urine WBC 0-4 /hpf H /hpf (0-5) Ur Squamous Epith Cells Rare /hpf /hpf (0-5) Amorphous Sediment Not Reportable Urine Bacteria Trace /hpf /hpf (NONE) 08/22/21 08/22/21 07:37 11:27 WBC RBC Hgb Hct MCV MCH MCHC RDW Plt Count MPV Neut % (Auto) Lymph % (Auto) [place] % (Auto) Eos % (Auto) Baso % (Auto) Neut # (Auto) Lymph # (Auto) [place] # (Auto) Eos # (Auto) Baso # (Auto) Nucleated RBC % (a uto) Nucleated RBCs # PT INR Sodium Potassium Chloride Carbon Dioxide Anion Gap BUN Creatinine GFR Calculation Glucose POC Glucose Calculated Osmolal ity Calcium Total Bilirubin AST ALT Alkaline Phosphata se Troponin T Baselin e Troponin T 120 Min [place] 21.13 ng/L H ng/L (0-15) Delta Troponin T -1.87 ABS# L ABS# (0-10) Troponin T Hi Sens 6Hr 18.91 ng/L H ng/L (0-15) Troponin T Hi Sens 6Hr Delta -4.09 ng/L L ng/L (0-12) Total Protein Albumin Globulin Urine Color Urine Appearance Urine pH Ur Specific Gravit y Urine Protein Urine Glucose (UA) Urine Ketones Urine Blood Urine Nitrate Urine Bilirubin Urine Urobilinogen Ur Leukocyte [place] ase Urine RBC Urine WBC Ur Squamous Epith Cells Amorphous Sediment Urine Bacteria Discharge Plan Discharge Patient Disposition: Admitted As Inpatient Clinical Impression: Acute CVA (cerebrovascular accident), Bradycardia, Carotid artery stenosis Condition: Stable Sign Out Sign Out Data: Patient Sign Out occurred on 08/22/21 at 06:17. Patient's care was discussed, and care was transferred from to Salo Funk DO. Coding Level of Care Code ED Knot Picker Cloth for Chg Fwd Exam Comprehensive Documented by User: Salo Funk DO 08/31/21 09:22 HPI - Neuro Symptoms/Deficit General: Chief Complaint: ER Hold Stated Complaint: WEAKNESS Time Seen by Provider: 08/22/21 05:21 PFSH ED PFSH: Medical History (Updated 08/31/21 @ 09:22 by Salo Funk DO) Carotid artery disease GERD (gastroesophageal reflux disease) Glaucoma HTN (hypertension), benign Hypertension Lymphadenopathy Abdominal, followed by hematology/oncology Surgical History H/O circumcision H/O esophagogastroduodenoscopy (09/16/20) H/O left inguinal hernia repair H/O splenectomy Status post colonoscopy (09/16/20) Status post right inguinal hernia repair (09/21/20) Family History Other Cancer Denies family history of Diabetes CAD (coronary artery disease) Anesthesia complication Bleeding disorder Social History Household members: spouse Marital status: Current occupational status: retired History of recent travel: No NIH stroke score NIHSS: Level Of Consciousness - 1a: 0 Level Of Consciousness Questions - 1b: Both Correct Level Of Consciousness Commands - 1c: Both Correct Best Gaze - 2: Normal Visual Mason - 3: No Visual Loss Facial Palsy - 4: Minor Paralysis Motor Arm Right - 5: No Drift Motor Arm Left - 5: Drift Motor Leg Right - 6: No Drift Motor Leg Left - 6: No Drift Limb Ataxia - 7: Present In One Limb Sensory - 8: Normal Best Language - 9: No Aphasia Dysarthia - 10: Mild/Moderate Dysarthia Extinction And Inattention - 11: 0 Score: Total Score: 4 Course Vital Signs: Vital signs: Vital Signs Temperature 98.2 F 08/22/21 14:23 Pulse Rate 85 08/22/21 23:43 Respiratory Rate 16 08/22/21 23:43 Blood Pressure 123/74 08/22/21 23:43 Pulse Oximetry 95 08/22/21 23:43 MDM - Neuro Symptoms/Deficit MDM Narrative: Medical decision making narrative: 86-year-old male presented to the emergency room with left-sided weakness and difficulty speaking. Last known normal was around 530 last night. Care assumed from Dr. Mendez at change of shift. Labs reviewed patient had a brief episode of bradycardia down to the 30s. EKG was repeated there is inverted T waves in V5 and 6 not present previously he is not currently having any pain or discomfort. During episode of bradycardia he did get diaphoretic and nauseous that has already resolved. Discussed Dr. Garcia orders written. Lab Data: Labs: Lab Results 08/22/21 08/22/21 08/22/21 05:34 05:35 05:35 WBC 10.5 10^3/uL H 10 ^3/uL (4.0-10.0) RBC 4.63 10^6/uL 10^6 /uL (4.1-5.3) Hgb 15.2 g/dL g/dL (11.7-16.6) Hct 43.7 % % (42.0-52.0) MCV 94.4 fl H fl (80-94) MCH 32.8 pg pg (28.0-34.0) MCHC 34.8 g/dL g/dL (30.0-36.0) RDW 13.9 % % (12.1-15.1) Plt Count 244 10^3/cmm 10^3 /cmm (130-400) MPV 11.3 fL H fL (7.4-10.4) Neut % (Auto) 69.9 % % Lymph % (Auto) 15.7 % % [place] % (Auto) 11.1 % % Eos % (Auto) 1.9 % % Baso % (Auto) 1.0 % % Neut # (Auto) 7.34 10^3/uL 10^3 /uL (1.8-7.7) Lymph # (Auto) 1.7 10^3/uL 10^3/ uL (0.8-4.8) [place] # (Auto) 1.2 10^3/uL H 10^ 3/uL (0.2-0.9) Eos # (Auto) 0.2 10^3/uL 10^3/ uL (0.0-0.8) Baso # (Auto) 0.1 10^3/uL 10^3/ uL (0.0-0.1) Nucleated RBC % (a uto) 0 % % Nucleated RBCs # 0.0 /100WBC /100W BC PT 13.40 SECONDS SEC ONDS (12.1-14.9) INR 0.99 (0.8-1.2) Sodium Potassium Chloride Carbon Dioxide Anion Gap BUN Creatinine GFR Calculation Glucose POC Glucose 120 mg/dL H mg/dL (70-110) Calculated Osmolal ity Calcium Total Bilirubin AST ALT Alkaline Phosphata se Troponin T Baselin e Troponin T 120 Min [place] Troponin T Troponin T Hi Sens 6Hr Troponin T Hi Sens 6Hr [place] Total Protein Albumin Globulin Urine Color Urine Appearance Urine pH Ur Specific Gravit y Urine Protein Urine Glucose (UA) Urine Ketones Urine Blood Urine Nitrate Urine Bilirubin Urine Urobilinogen Ur Leukocyte [place] ase Urine RBC Urine WBC Ur Squamous Epith Cells Amorphous Sediment Urine Bacteria 08/22/21 08/22/21 08/22/21 05:35 05:35 06:10 WBC RBC Hgb Hct MCV MCH MCHC RDW Plt Count MPV Neut % (Auto) Lymph % (Auto) [place] % (Auto) Eos % (Auto) Baso % (Auto) Neut # (Auto) Lymph # (Auto) [place] # (Auto) Eos # (Auto) Baso # (Auto) Nucleated RBC % (a uto) Nucleated RBCs # PT INR Sodium 139 mmol/L mmol/L (136-145) Potassium 4.3 mmol/L mmol/L (3.5-5.1) Chloride 104 mmol/L mmol/L (98-107) Carbon Dioxide 23 mmol/L mmol/L (22-29) Anion Gap 16.3 (5-19) BUN 24 mg/dL H mg/dL (8-23) Creatinine 1.2 mg/dL mg/dL (0.7-1.2) GFR Calculation Not Reportable Glucose 117 mg/dL H mg/dL (65-115) POC Glucose Calculated Osmolal ity 293 mOsm/kg mOsm/ kg (285-295) Calcium 9.3 mg/dL mg/dL (8.5-10.5) Total Bilirubin 0.6 mg/dL mg/dL (0.15-1.2) AST 16 U/L U/L (0-40) ALT 14 U/L U/L (0-41) Alkaline Phosphata se 91 IU/L IU/L (40-130) Troponin T Baselin e 23 ng/L H ng/L (0-15) Troponin T 120 Min [place] Troponin T Troponin T Hi Sens 6Hr Troponin T Hi Sens 6Hr [place] Total Protein 7.7 g/dL g/dL (6.6-8.7) Albumin 4.0 g/dL g/dL (3.5-5.2) Globulin 3.7 g/dL g/dL (1.3-4.6) Urine Color Straw (Yellow) Urine Appearance Clear (CLEAR) Urine pH 7 (5-7) Ur Specific Gravit y 1.000 L (1.005-1.030) Urine Protein 1+ H (Negative) Urine Glucose (UA) Norm (Normal) Urine Ketones Negative (Negative) Urine Blood Neg (Negative) Urine Nitrate Negative (Negative) Urine Bilirubin Neg (Negative) Urine Urobilinogen Norm mg/dL mg/dL (Negative) Ur Leukocyte [place] ase Negative (Negative) Urine RBC 0-4 /hpf H /hpf (0-2) Urine WBC 0-4 /hpf H /hpf (0-5) Ur Squamous Epith Cells Rare /hpf /hpf (0-5) Amorphous Sediment Not Reportable Urine Bacteria Trace /hpf /hpf (NONE) 08/22/21 08/22/21 07:37 11:27 WBC RBC Hgb Hct MCV MCH MCHC RDW Plt Count MPV Neut % (Auto) Lymph % (Auto) [place] % (Auto) Eos % (Auto) Baso % (Auto) Neut # (Auto) Lymph # (Auto) [place] # (Auto) Eos # (Auto) Baso # (Auto) Nucleated RBC % (a uto) Nucleated RBCs # PT INR Sodium Potassium Chloride Carbon Dioxide Anion Gap BUN Creatinine GFR Calculation Glucose POC Glucose Calculated Osmolal ity Calcium Total Bilirubin AST ALT Alkaline Phosphata se Troponin T Baselin e Troponin T 120 Min [place] 21.13 ng/L H ng/L (0-15) [place] Troponin T -1.87 ABS# L ABS# (0-10) Troponin T Hi Sens 6Hr 18.91 ng/L H ng/L (0-15) Troponin T Hi Sens 6Hr Delta -4.09 ng/L L ng/L (0-12) Total Protein Albumin Globulin Urine Color Urine Appearance Urine pH Ur Specific Gravit y Urine Protein Urine Glucose (UA) Urine Ketones Urine Blood Urine Nitrate Urine Bilirubin Urine Urobilinogen Ur Leukocyte [place] ase Urine RBC Urine WBC Ur Squamous Epith Cells Amorphous Sediment Urine Bacteria Discharge Plan Discharge Patient Disposition: Admitted As Inpatient Clinical Impression: Acute CVA (cerebrovascular accident), Bradycardia, Carotid artery stenosis Condition: Stable Sign Out Sign Out Data: Patient Sign Out occurred on 08/22/21 at 06:17. Patient's care was discussed, and care was transferred from to Salo Funk DO. Coding Level of Care Code ED Knot Picker Cloth for Janelle Fwd Exam Comprehensive
[2021-08-22 05:38] LABS: Glucose Point of Care 120 mg/dL (70-110)
[2021-08-22 06:09] LABS: Basophils # 0.1 10^3/uL (0.0-0.1); Eosinophils # 0.2 10^3/uL (0.0-0.8); Eosinophils % 1.9 %; Hematocrit 43.7 % (42.0-52.0); Hemoglobin 15.2 g/dL (11.7-16.6); Lymphocytes # 1.7 10^3/uL (0.8-4.8); Lymphocytes % 15.7 %; Mean Corpuscular HGB Conc 34.8 g/dL (30.0-36.0); Mean Corpuscular Hemoglobin 32.8 pg (28.0-34.0); Mean Corpuscular Volume 94.4 fl (80-94); Mean Platelet Volume 11.3 fL (7.4-10.4); Monocytes # 1.2 10^3/uL (0.2-0.9); Monocytes % 11.1 %; Neutrophils # 7.34 10^3/uL (1.8-7.7); Neutrophils % 69.9 %; Nucleated Red Blood Cells % 0 %; Platelet Count 244 10^3/cmm (130-400); Red Blood Count 4.63 10^6/uL (4.1-5.3); Red Cell Distribution Width 13.9 % (12.1-15.1); White Blood Count 10.5 10^3/uL (4.0-10.0)
[2021-08-22 06:24] LABS: INR 0.99 (0.8-1.2)
[2021-08-22 06:34] LABS: Alanine Aminotransferase 14 U/L (0-41); Alkaline Phosphatase 91 IU/L (40-130); Anion Gap 16.3 (5-19); Aspartate Amino Transferase 16 U/L (0-40); Blood Urea Nitrogen 24 mg/dL (8-23); Calcium 9.3 mg/dL (8.5-10.5); Carbon Dioxide 23 mmol/L (22-29); Chloride 104 mmol/L (98-107); Globulin 3.7 g/dL (1.3-4.6); Glucose 117 mg/dL (65-115); Osmolality Calculated 293 mOsm/kg (285-295); Potassium 4.3 mmol/L (3.5-5.1); Sodium 139 mmol/L (136-145); Total Bilirubin 0.6 mg/dL (0.15-1.2); Total Protein 7.7 g/dL (6.6-8.7)
[2021-08-22 06:35] LABS: Troponin(5th) Baseline 23 ng/L (0-15)
[2021-08-22] MEDS: aspirin 81 mg Chew Tablet 324 MG PO (06:37)
[2021-08-22 06:54] LABS: Add Urine Microscopic? YES; Bilirubin Urine Neg (Negative); Blood Urine Neg (Negative); Glucose Urine UA Norm (Normal); Ketones Urine Negative (Negative); Leukocyte Esterase Urine Negative (Negative); Nitrate Urine Negative (Negative); Protein Urine 1+ (Negative); Urine Appearance Clear (CLEAR); Urine Color Straw (Yellow); Urobilinogen Urine Norm (Negative); pH Urine 7 (5-7)
[2021-08-22 06:55] LABS: Add Urine Culture? No; Bacteria Urine TRACE /hpf; RBC Urine 0-4 /hpf (0-2); Squamous Epithelial Cell Urine RARE /hpf (0-5); WBC Urine 0-4 /hpf (0-5)
--- NOTE | 2021-08-22 07:23 | CT_ITS ---
WS: [id number] CT ANGIOGRAM CEREBRAL AND CAROTID ARTERIES HISTORY: acute CVA TECHNIQUE: CT angiogram is performed of the carotid and cerebral arteries. During arterial injection imaging is obtained from the skull vertex to the aortic arch in 1.25 mm imaging. Coronal and sagittal reformats are submitted. Additional multi planar reformats of the carotid and cerebral arteries are submitted, MIP imaging also reviewed. NASCET criteria utilized. [facility] at least one of these dose optimization techniques: automated exposure control; mA and/or kV adjust ment per patient size (includes targeted exams where dose is matched to clinical indication); or iter ative reconstruction. CONTRAST: Visipaque 320; 95 mL IV. DLP: 2357.05 mGy.cm COMPARISON: 12/14/2018 Carotid Angiogram: Right carotid: Common carotid artery: Tortuous common carotid artery is scattered plaque. Internal carotid artery: Large amount of soft plaque nearly completely occluding the proximal ICA. Th ere is a string sign remaining. Stenosis estimated at 89%. The area of high-grade stenosis extends ov er length of only a couple centimeters. External carotid artery: Patent. Left carotid: Common carotid artery: Arises near the base of the innominate. There is a calcified plaque and intima l thickening involving the proximal common carotid artery. Mild intimal thickening throughout the rem aining common carotid artery. Internal carotid artery: Large amount of calcified plaque and intimal thickening at the bifurcation. Complete occlusion LEFT ICA. External carotid artery: Patent. Right vertebral artery: Small caliber but patent. Left vertebral artery: Dominant and normally arises from the LEFT subclavian. Portions of the LEFT ve rtebral artery are obscured due to artifact from motion. Subclavian arteries: No stenosis or significant abnormality. Upper thorax: Chronic emphysema. Thyroid gland: Mildly enlarged. Osseous structures: Increase in cervical lordosis. CEREBRAL ANGIOGRAM: Intracranial vertebral arteries: Very small caliber distal RIGHT vertebral artery with a few calcifie d plaques. Distal RIGHT vertebral artery is not well visualized and may be occluded or normal variant . Calcification in the distal LEFT vertebral artery. Basilar artery: No significant stenosis or occlusion. No aneurysm. Intracranial Internal carotid arteries: Moderate amount of plaque in the RIGHT ICA with stenosis just over 50% on the RIGHT. LEFT ICA is occluded with reconstitution through an intact [place] n the supraclinoid region. Middle cerebral arteries: Mild atherosclerotic disease. No occlusions or stenosis. Anterior cerebral arteries and ACOM: Moderate stenosis LEFT A1 segment. Posterior cerebral arteries and PCOM's: Normal. Dural venous sinuses are normally enhancing. Mastoid air cells: Normal. Paranasal sinuses: Normal. Calvarium: Normal. CT/CT angio headneck* [id number] IMPRESSION: 1. Complete occlusion LEFT cervical ICA. Known occlusion previously described on 12/14/2018. 2. High-grade RIGHT ICA cervical stenosis is new. Stenosis measured at 89 %. 3. Moderate stenosis RIGHT cavernous carotid artery. 4. Focal stenosis is moderate LEFT A1 segment.
--- NOTE | 2021-08-22 07:26 | ECG_ITS ---
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 Measurements Intervals [place] Rate: 89 P: 44 SD: 205 QRS: -37 QRSD: 103 T: 86 QT: 355 QTc: 434 Interpretive Statements SINUS RHYTHM LEFT AXIS DEVIATION [QRS AXIS < -30] LEFT VENTRICULAR HYPERTROPHY AND ST-T CHANGE [VOLTAGE CRITERIA PLUS ST/T ABNORMALITY] Compared to ECG 08/22/2021 06:05:29 Sinus bradycardia no longer present Myocardial infarct finding no longer present ST (T wave) deviation still present Electronically Signed On 08-22-2021 23:33:51 CDT by Jhon Davenport M.D. [email or web address]
[2021-08-22] MEDS: iodixanol 320 mg/mL 100mL Btl IV (08:08)
[2021-08-22 08:17] LABS: Troponin 5 2HR 21.13 ng/L (0-15)
[2021-08-22 08:20] LABS: Troponin 5 2HR Delta -1.87 ABS# (0-10)
--- NOTE | 2021-08-22 08:55 | PC.NURSE ---
Assisted patient on the commode.
--- NOTE | 2021-08-22 09:53 | PC.PHAR ---
pts verified pts medications
[2021-08-22] MEDS: sodium chloride 0.9% 1,000 ML 100 ML IV (10:08)
--- NOTE | 2021-08-22 11:26 | ECG_ITS ---
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 Measurements Intervals [place] Rate: 52 P: 24 ND: 208 QRS: -33 QRSD: 114 T: 106 QT: 393 QTc: 367 Interpretive Statements SINUS BRADYCARDIA LEFT AXIS DEVIATION [QRS AXIS < -30] LEFT VENTRICULAR HYPERTROPHY AND ST-T CHANGE [VOLTAGE CRITERIA PLUS ST/T ABNORMALITY] POSSIBLE LATERAL MYOCARDIAL INFARCTION , OF INDETERMINATE AGE [30 ms Q WAVE IN I/aVL/V5/V6] Compared to ECG 08/22/2021 05:53:19 Myocardial infarct finding now present Sinus rhythm no longer present First degree AV block no longer present ST (T wave) deviation still present Electronically Signed On 08-22-2021 23:34:28 CDT by Jhon Davenport M.D. [id number]
[2021-08-22 12:15] LABS: Troponin 5 6HR 18.91 ng/L (0-15)
[2021-08-22 12:18] LABS: Troponin 5 6HR Delta -4.09 ng/L (0-12)
--- NOTE | 2021-08-22 14:00 | P.CONIM_ITS ---
Providers/Reason For Consult Consulting Physician/Specialty*: Prashant Garcia MD, hospitalist Reason for Consult*: Stroke symptoms Attending Physician: Prashant Garcia MD Primary Care Provider: Margoth Millan APN History of Present Illness History of Present Illness Salbador Blankenship is a 86 year old male who presented to the emergency department with complaints of clumsy left arm. This was noted upon awakening today, around 4 AM. When he went to sleep at 530 it was not present. He had had some difficulty in the last several days with his coordination, and dizziness but no particularly focal deficits. No chest discomfort, or shortness of breath. Apparently had an event in 2019 where he was sent to [facility] for concern of stroke after TPA. Left carotid was occluded on CTA at that time. Review of Systems General: Reports: 10 or more systems reviewed and unremarkable except in HPI and below Const: Denies: fever(s) Eyes: Denies: change in vision ENMT: Denies: throat pain Card: Denies: chest pain Resp: Denies: dyspnea GI: Denies: abdominal pain : Denies: flank pain Musc: Denies: neck pain Skin/Breast: Denies: rash Neuro: Reports: weakness in extremities and dizziness Psych: Denies: anxiety or depression Endo: Denies: polyuria Doc/Lymph: Denies: easy bruising All/Imm: Denies: urticaria Meds/Allergies Home Medications and Allergies Home Medications Medication Instructions Recorded Confirmed Last Taken Type amlodipine 5 mg tablet 5 mg PO BEDTIME 08/16/20 08/22/21 09/20/20 History aspirin 81 mg tablet,delayed 81 mg PO BEDTIME 08/16/20 08/22/21 09/20/20 History release latanoprost 0.005 % eye drops 1 drop OPHTHALMIC (EYE) BEDTIME 08/16/20 08/22/21 09/20/20 History tamsulosin 0.4 mg capsule 0.8 mg PO BEDTIME 09/16/20 08/22/21 09/20/20 History olmesartan [Benicar] 5 mg PO BEDTIME 09/20/20 08/22/21 09/21/20 07:00 History cholecalciferol (vitamin D3) 125 mcg PO QPM 09/21/20 08/22/21 09/20/20 History [Vitamin D3] omega 8-knf-lby-fish oil [Fish Oil] 2 cap PO QPM 09/21/20 08/22/21 09/20/20 History docusate sodium [Colace] 100 mg PO BEDTIME 08/22/21 08/22/21 Unknown History esomeprazole magnesium [Nexium 20 mg PO QAM 08/22/21 08/22/21 Unknown History 24HR] potassium gluconate 595 mg PO QPM 08/22/21 08/22/21 Unknown History vit C,D-As-zqlax-lutein-zeaxan 1 cap PO QPM 08/22/21 08/22/21 Unknown History [PreserVision AREDS-2] vitamin A 1 cap PO QPM 08/22/21 08/22/21 Unknown History Allergies Allergy/AdvReac Type Severity Reaction Status Date / Time ciprofloxacin Allergy ALGY-Swell Verified 08/22/21 09:53 Lip/Tongue/Throat Current Medications Current Medications Generic Name Dose Route Start Last Admin Trade Name Freq PRN Reason Stop Dose Admin Sodium Chloride 1,000 mls @ 100 mls/hr 08/22/21 09:36 08/22/21 11:54 Sodium Chloride 0.9% IV Infused .Q10H DANNIELLE Infusion PFSH Acute PFSH: Medical History (Updated 08/22/21 @ 14:06 by Prashant Garcia MD) Carotid artery disease GERD (gastroesophageal reflux disease) Glaucoma HTN (hypertension), benign Hypertension Lymphadenopathy Abdominal, followed by hematology/oncology Surgical History H/O circumcision H/O esophagogastroduodenoscopy (09/16/20) H/O left inguinal hernia repair H/O splenectomy Status post colonoscopy (09/16/20) Status post right inguinal hernia repair (09/21/20) Family History Other Cancer Denies family history of Diabetes CAD (coronary artery disease) Anesthesia complication Bleeding disorder Social History Household members: spouse Marital status: Current occupational status: retired History of recent travel: No Vitals/I&O/Wt Last Vital Signs Temp 98.7 F 08/22/21 12:28 Pulse 87 08/22/21 13:43 Resp 17 08/22/21 13:43 BP 154/80 08/22/21 13:43 Pulse Ox 95 08/22/21 13:43 08/21/21 08/22/21 08/22/21 22:59 06:59 14:59 Intake Total 1000 / 1000 Balance 1000 / 1000 Weight last 48 hrs Weight 77.247 kg Physical Exam Narrative: EXAM NARRATIVE: General exam is a white male, in no apparent distress and conversant. HEENT: Pupils equally round. Oropharynx clear. Neck is supple no lymphadenopathy or thyromegaly Cardiovascular regular rate and rhythm without murmur Lungs clear Abdomen is soft with positive bowel sounds, no obvious organomegaly Extremities no cyanosis clubbing or edema Neurologic: Clumsy left hand with diminished strength, 3 out of 5 as well as left facial droop. NIH score of 5 per emergency department. Data Other Data: Other data: LFTs normal Troponin XX 3 with repeat 21 Calcium normal Urinalysis negative Head and neck CTA demonstrated complete occlusion of left cervical internal carotid artery and high-grade right ICA approximately 89% with moderate stenosis right cavernous carotid. Focal stenosis moderate at left A1 segment. Head CT with likely small infarct right frontal lobe Chest x-ray no infiltrate A&P Assessment and plan (1) Acute CVA (cerebrovascular accident): Patient with acute right hemispheric CVA Aspirin given in the emergency department Will need echocardiogram Recommend initiation of statin Given severity of his CTA findings I discussed this with neurology who recommends transfer to tertiary center for possible embolectomy. They believe the right internal carotid appears to have fresh clot. He is not a candidate for TPA. Status: Acute (2) Carotid artery stenosis: See above Recommend transfer to tertiary care center Status: Acute (3) Bradycardia: Had episode of bradycardia in the emergency department. This was associated with flipped T waves noted in aVL and one in his emergency department EKG. Consideration of stress testing inpatient or outpatient. Note that he had a nuclear stress test in 2019 which demonstrated no likely flow-limiting abnormalities. Status: Acute Additional A&P Information Hypertension. Permissive hypertension should be allowed currently. Hold blood pressure medication. Allow natural Consult Attestations Medical Necessity Statement: Not applicable, transfer will occur Time Spent in Patient Care: Greater than 35 minutes Coding Level of Care Code Acute Cardiac Catheterization Technician for [facility] Shira Diagnoses Acute CVA (cerebrovascular accident) I63.9 Carotid artery stenosis I65.29 Bradycardia R00.1
--- NOTE | 2021-08-22 19:05 | PC.NURSE ---
Went to check the patient and he has had a change of LOC. Pt had been asleep, and did not know where he was. Pt thought he was home. I asked him to smile really big and his left sided droop was worse. Provider notified.
== END 2021-08-22 23:45 | disposition admitted as inpatient to this hospital (09) ==
LOC: ER 07:25 → ER IP 09:20
PROVIDERS: Emergency Medicine; Emergency Provider Family Medicine; PCP Nurse Practitioner Family
DX: I63.9 Cerebral infarction, unspecified (principal); R29.704 NIHSS score 4; R00.1 Bradycardia, unspecified; I10 Essential (primary) hypertension; I77.3 Arterial fibromuscular dysplasia
CPT/HCPCS: 36415; 36416; 70450; 70496; 70498; 71045; 80053; 81001; 82962; 84484; 85025; 85610; 93005; 99291; J7030; Q9967

== ENCOUNTER 2022-01-05 08:44 | Outpatient (CLI) | payer MEDICARE, OTHER, SELFPAY ==
--- NOTE | 2022-01-05 09:30 | CT_ITS ---
WS: [id number] CT CHEST TECHNIQUE: Contrast enhanced CT of the chest with coronal and sagittal reformatted images. CLINICAL INFORMATION: PULMONARY NODULE COMPARISON: August 19, 2020 DLP: 735.[address] scans at [facility] use at least one of these dose optimization techniques: automated e xposure control; mA and/or kV adjustment per patient size (includes targeted exams where dose is matc hed to clinical indication); or iterative reconstruction. FINDINGS: Moderate chronic emphysematous changes. Several Noncalcified subcentimeter pulmonary nodules bilatera l upper lobes. Recommend 12 month follow-up. Interstitial thickening in the subpleural lung bases and LEFT LEFT greater than RIGHT upper lobes. No acute pulmonary infiltrates. Normal caliber thoracic aorta. Aortic calcification. Coronary calcification. Numerous normal caliber anterior mediastinal lymph nodes. No axillary lymphadenopathy. Normal caliber descending thoracic aor ta. Adrenal glands are normal. Small bilateral renal cysts. Fatty atrophy of the pancreas. Diffuse fa tty infiltration the liver. Small esophageal hiatal hernia with partial herniation of the pancreas wi th adjacent lymph nodes and venous congestion unchanged. Partially visualized course heterogeneous liver parenchymal enhancement. Hypertrophic changes thoraci c spine. Chronic biconcave compression deformity in the lower thoracic spine at T12. CT/CT chest w con* [id number] IMPRESSION: 1. Moderate chronic emphysematous changes. 2. Several Noncalcified subcentimeter pulmonary nodules bilateral upper lobes. Recommend 12 month follow-up. 3. Subpleural interstitial thickening in the lung bases and LEFT greater than RIGHT upper lobe similar to previous. 4. No focal pneumonia or pleural fluid. 5. Small esophageal hiatal hernia with partial herniation of the pancreas with adjacent lymph nodes and venous congestion unchanged. 6. Partially visualized coarse heterogeneous liver enhancement.Correlation wit h liver function tests.
[2022-01-05 09:39] LABS: Basophils # 0.1 10^3/uL (0.0-0.1); Basophils % 0.8 %; Eosinophils # 0.3 10^3/uL (0.0-0.8); Eosinophils % 2.7 %; Hematocrit 37.2 % (42.0-52.0); Hemoglobin 12.2 g/dL (11.7-16.6); Lymphocytes # 1.6 10^3/uL (0.8-4.8); Lymphocytes % 15.2 %; Mean Corpuscular HGB Conc 32.8 g/dL (30.0-36.0); Mean Corpuscular Hemoglobin 31.4 pg (28.0-34.0); Mean Corpuscular Volume 95.9 fl (80-94); Mean Platelet Volume 10.8 fL (7.4-10.4); Monocytes # 1.6 10^3/uL (0.2-0.9); Monocytes % 14.8 %; Neutrophils # 7.03 10^3/uL (1.8-7.7); Neutrophils % 66.2 %; Nucleated Red Blood Cells % 0 %; Platelet Count 254 10^3/cmm (130-400); Red Blood Count 3.88 10^6/uL (4.1-5.3); Red Cell Distribution Width 14.9 % (12.1-15.1); White Blood Count 10.6 10^3/uL (4.0-10.0)
[2022-01-05 10:01] LABS: Alanine Aminotransferase 14 U/L (0-41); Albumin Level 3.8 g/dL (3.5-5.2); Alkaline Phosphatase 126 IU/L (40-130); Anion Gap 15.7 (5-19); Aspartate Amino Transferase 15 U/L (0-40); Blood Urea Nitrogen 24 mg/dL (8-23); Calcium 9.5 mg/dL (8.5-10.5); Carbon Dioxide 25 mmol/L (22-29); Chloride 102 mmol/L (98-107); Globulin 3.9 g/dL (1.3-4.6); Glucose 130 mg/dL (65-115); Osmolality Calculated 292 mOsm/kg (285-295); Potassium 4.7 mmol/L (3.5-5.1); Sodium 138 mmol/L (136-145); Total Bilirubin 0.4 mg/dL (0.15-1.2); Total Protein 7.7 g/dL (6.6-8.7)
== END 2022-01-05 08:45 | disposition home or self-care (01) ==
LOC: LAB 08:46
PROVIDERS: PCP Nurse Practitioner Family; Visit Provider Nurse Practitioner Family
DX: R91.1 Solitary pulmonary nodule (principal); K44.9 Diaphragmatic hernia without obstruction or gangrene
CPT/HCPCS: 36415; 71260; 80053; 85025; Q9967

== ENCOUNTER → 2022-01-18 10:27 | Outpatient (BNVA) | payer MEDICARE, OTHER, SELFPAY | PROVIDERS: PCP Nurse Practitioner Family; Visit Provider Internal Medicine Cardiovascular Disease | DX: I77.9 Disorder of arteries and arterioles, unspecified (principal); I48.91 Unspecified atrial fibrillation; I48.92 Unspecified atrial flutter | CPT/HCPCS: 99204 ==

== ENCOUNTER 2022-04-18 08:55 | Outpatient (CLI) | payer MEDICARE, OTHER, SELFPAY ==
--- NOTE | 2022-04-18 11:00 | USCV_ITS ---
Salbador Blankenship Age: 86 Gender: M : 1935 Exam Date: 04/18/2022 09:03 Ordering Phys: Adiel Gallo MD ([email or web address]) Technologist: [place] [facility] [place]ication: lt side ica occlusion Risk Factors: Previous Vascular Surgery: Right Brachial BP: / Left Brachial BP: / Right Left Velocity (cm/s) Spectral Plaque Velocity (cm/s) Spectral Plaque Syst/Diast Broadening Syst/Diast Broadening 80.50/ 13.20 Prox CCA 65.10 / 0.00 93.70/ 11.00 Mid CCA 67.80 / 7.15 101.40/18.70 Distal CCA 79.40 / 7.70 125.70/17.60 Prox ICA / 118.00/19.80 Mid ICA / 118.00/22.10 Distal ICA / 113.60 ECA 141.40 1.24 ICA/CCA Antegrade Vertebral Antegrade 91.50/ 8.80 cm/s 65.30/ 6.20 cm/s Bi Subclavian Bi 138.9 148.1 0 0 FINDINGS Mild to moderate plaques of the right bifurcation and proximal ICA No Doppler flow signals in the left ICA. Intimal thickening and minimal plaques in the common carotid arteries bilaterally Antegrade flow in the vertebral arteries bilaterally CONCLUSIONS 1. Mild to moderate plaques of the right bifurcation and proximal internal carotid artery without Doppler features suggesting less than 50% stenosis. 2. 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 3. Minimal plaques and intimal thickening in the common carotid arteries bilaterally. 4. No significant stenosis in the external carotid, subclavian and vertebral arteries. 5. No similar previous studies are available for comparison Dr Adiel Gallo MD [facility] (Electronically Signed) Final Date: 20 April 2022 16:00 S
== END 2022-04-18 08:56 | disposition home or self-care (01) ==
LOC: RAD 08:56
PROVIDERS: PCP Nurse Practitioner Family; Visit Provider Internal Medicine Cardiovascular Disease
DX: I65.29 Occlusion and stenosis of unspecified carotid artery (principal); I77.9 Disorder of arteries and arterioles, unspecified; I65.22 Occlusion and stenosis of left carotid artery
CPT/HCPCS: 93880

== ENCOUNTER 2022-05-01 08:51 | Outpatient (CLI) | payer MEDICARE, OTHER, SELFPAY ==
[2022-05-01 09:05] VITALS: BMI 23.7
--- NOTE | 2022-05-01 09:13 | NMCV_ITS ---
NM gilmar perf SPECT r/s* [id number] Salbador Blankenship Age: 86 Gender: M : 1935 Exam Date: 05/01/2022 09:13 Ordering Phys: Adiel Gallo MD ([email or web address]) Technologist: RIANNA Torres Exam Location: [facility] Indications: SHORTNESS OF BREATH STRESS TEST Please [facility] IMAGE PROTOCOL Rest/Stress 1 Lexiscan Day Radiopharmaceutical Dose (mCi) Administration Site Administered by Rest: Tc-99m 10.6 IV RIANNA Torres Sestamibi Stress:Tc-99m 32.9 IV RIANNA Dela Cruz Sestamibi Rest: 01-May-2022 60 Discovery 630 Stress: 01-May-2022 30 Discovery 630 0.4mg Lexiscan. Images obtained in supine and prone position. SPECT RESULTS Technical Quality: Excellent Raw Data Analysis: Normal Image Corrections: No attenuation or motion correction applied Summed Stress Score: 0 Summed Rest Score: 0 Summed Difference Score: 0 PERFUSION FINDINGS Uniform myocardial tracer uptake with no significant perfusion abnormalities. FUNCTIONAL RESULTS (calculated via Gated SPECT) Stress Image LV EF (%): 80 Stress EDV (mL):94 TID: 0.77 Stress ESV (mL):19 FUNCTIONAL FINDINGS: Segmental wall motion analysis revealing no gross wall motion normalities. IMPRESSIONS 1. Unremarkable Myocardial perfusion imaging. 2. Normal LV ejection fraction of 80%. 3. LV wall motion analysis revealing no gross wall motion abnormalities. 4. Normal LV volume Low probability for coronary ischemia, based on the above findings Dr Adiel Gallo MD [facility] (Electronically Signed) Final Date: 01 May 2022 16:57 S
--- NOTE | 2022-05-01 09:13 | ECG_ITS ---
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 Interpretive Statements NAME OF STUDY: LEXISCAN SESTAMIBI STRESS TEST INDICATION: Sob, PROCEDURE: At the baseline, the EKG revealed normal sinus rhythm with a heart rate of 90 bpm.. The baseline blood pressure was mm Hg with a heart rate of beats/min. Lexiscan was infused over a period of 20 seconds. A total of 0.4 milligrams of Lexiscan was infused. The stress phase was continued for a total of 5 minutes. Heart rate at the end of the stress phase was with a blood pressure. The EKG at the peak infusion revealed no significant changes. Sestamibi was injected 20 seconds after the Lexiscan infusion. Blood pressure at the end of the recovery phase was 160/70 with a heart rate of 96 per minute. CONCLUSION: 1. No significant EKG changes with the LexiScan infusion 2. No LexiScan induced chest pain or cardiac arrhythmia 3. Normal blood pressure and heart rate response 4. Sestamibi/sestamibi perfusion scan pending; see separate report. Electronically Signed On 05-01-2022 18:03:37 CDT by Adiel Gallo M.D. [id number]
[2022-05-01] MEDS: regadenoson 0.4 Mg/5 ml Syringe IVP (11:03)
[2022-05-01 11:16] VITALS: BP 160/70; PULSE 98
== END 2022-05-01 08:52 | disposition home or self-care (01) ==
LOC: CDL 08:53
PROVIDERS: PCP Nurse Practitioner Family; Visit Provider Internal Medicine Cardiovascular Disease
DX: R06.02 Shortness of breath (principal); I48.91 Unspecified atrial fibrillation; I48.92 Unspecified atrial flutter
CPT/HCPCS: 78452; 93017; A9500; J2785

== ENCOUNTER → 2022-06-04 13:54 | Outpatient (BNVA) | payer MEDICARE, OTHER, SELFPAY | PROVIDERS: PCP Nurse Practitioner Family; Visit Provider Internal Medicine Cardiovascular Disease | DX: I48.91 Unspecified atrial fibrillation (principal); I48.92 Unspecified atrial flutter; E78.5 Hyperlipidemia, unspecified; I10 Essential (primary) hypertension; I65.29 Occlusion and stenosis of unspecified carotid artery; Z87.891 Personal history of nicotine dependence | CPT/HCPCS: 99214 ==

== ENCOUNTER → 2022-10-30 13:52 | Outpatient (BNVA) | payer MEDICARE, OTHER, SELFPAY | PROVIDERS: PCP Family Medicine; Visit Provider Family Medicine | DX: I48.91 Unspecified atrial fibrillation (principal); I48.92 Unspecified atrial flutter; E78.5 Hyperlipidemia, unspecified; I10 Essential (primary) hypertension; I63.9 Cerebral infarction, unspecified | CPT/HCPCS: 80053; 80061; 85025 ==

== ENCOUNTER → 2022-12-03 11:19 | Outpatient (BNVA) | payer MEDICARE, OTHER, SELFPAY | PROVIDERS: PCP Family Medicine; Visit Provider Internal Medicine Cardiovascular Disease | DX: I10 Essential (primary) hypertension (principal); E78.5 Hyperlipidemia, unspecified; I65.29 Occlusion and stenosis of unspecified carotid artery; Z86.73 Personal history of transient ischemic attack (TIA), and cerebral infarction without residual deficits; Z87.891 Personal history of nicotine dependence | CPT/HCPCS: 99213 ==

== ENCOUNTER → 2022-12-18 12:29 | Outpatient (BNVA) | payer MEDICARE, OTHER, SELFPAY | PROVIDERS: PCP Family Medicine; Visit Provider Family Medicine | DX: R60.9 Edema, unspecified (principal); R00.1 Bradycardia, unspecified; I10 Essential (primary) hypertension | CPT/HCPCS: 80053; 83880; 84443; 85025 ==

== ENCOUNTER 2023-04-03 10:59 | Outpatient (CLI) | payer MEDICARE, OTHER, SELFPAY ==
--- NOTE | 2023-04-03 11:15 | USCV_ITS ---
Salbador Blankenship Age: 87 Gender: M : 1935 Exam Date: 04/03/2023 11:26 Ordering Phys: Adiel Gallo MD ([email or web address]) Technologist: RENITA [place] [facility] [place] Indication: CVA, KNOWN LEFT ICA OCCLUSION Risk Factors: Previous Vascular Surgery: Right Brachial BP: / Left Brachial BP: / Right Left Velocity (cm/s) Spectral Plaque Velocity (cm/s) Spectral Plaque Syst/Diast Broadening Syst/Diast Broadening 77.00/ 13.40 Prox CCA 59.90 / 9.30 80.80/ 18.60 Mid CCA 74.60 / 14.80 74.60/ 16.30 Distal CCA 0.00 / 0.00 113.60/28.70 Prox ICA 0.00 / 0.00 115.40/28.30 Mid ICA 0.00 / 0.00 109.00/28.40 Distal ICA 63.70 / 8.50 92.50 ECA 139.80 1.43 ICA/CCA 0.85 Antegrade Vertebral Antegrade 41.40/ 8.50 cm/s 52.90/ 16.50 cm/s Tri Subclavian Tri 113.8 115.8 0 0 FINDINGS No significant changes since 04/18 CONCLUSIONS Atheromatous plaque bilateral CCA's Right ICA stenosis <50%. Moderate atheromatous plaque right carotid bulb/ICA. Chronic Left ICA occlusion unchanged Normal antegrade Doppler flow noted in the right vertebral artery. Normal antegrade Doppler flow noted in the left vertebral artery. Nahum Tubbs MD (Electronically Signed) Final Date: 03 April 2023 13:42 S
== END 2023-04-03 11:00 | disposition home or self-care (01) ==
LOC: RAD 11:07
PROVIDERS: PCP Family Medicine; Visit Provider Internal Medicine Cardiovascular Disease
DX: I63.9 Cerebral infarction, unspecified (principal); I65.23 Occlusion and stenosis of bilateral carotid arteries; I77.9 Disorder of arteries and arterioles, unspecified
CPT/HCPCS: 93880

== ENCOUNTER 2023-04-11 13:17 | Outpatient (CLI) | payer MEDICARE, OTHER, SELFPAY ==
[2023-04-11 13:48] VITALS: PULSE 75; RESP 18; O2SAT 94
[2023-04-11] MEDS: albuterol 2.5 mg/3 mL Neb INHALATION (13:48)
[2023-04-11 13:52] VITALS: PULSE 76
== END 2023-04-11 13:18 | disposition home or self-care (01) ==
LOC: RT 13:18
PROVIDERS: PCP Family Medicine; Visit Provider Family Medicine
DX: R09.02 Hypoxemia (principal)
CPT/HCPCS: 94060; 94726; 94729

== ENCOUNTER → 2023-05-31 09:17 | Outpatient (BNVA) | payer MEDICARE, OTHER, SELFPAY | PROVIDERS: PCP Family Medicine; Visit Provider Family Medicine | DX: I48.91 Unspecified atrial fibrillation (principal); I48.92 Unspecified atrial flutter; I10 Essential (primary) hypertension; E78.5 Hyperlipidemia, unspecified | CPT/HCPCS: 80053; 80061; 85025 ==

== ENCOUNTER → 2023-06-10 09:48 | Outpatient (BNVA) | payer MEDICARE, OTHER, SELFPAY | PROVIDERS: PCP Family Medicine; Visit Provider Internal Medicine Cardiovascular Disease | DX: I65.23 Occlusion and stenosis of bilateral carotid arteries (principal); I10 Essential (primary) hypertension; E78.5 Hyperlipidemia, unspecified; I69.319 Unspecified symptoms and signs involving cognitive functions following cerebral infarction; Z87.891 Personal history of nicotine dependence | CPT/HCPCS: 99214 ==

== ENCOUNTER 2023-11-06 11:23 | Outpatient (RCR) | payer MEDICARE, OTHER, SELFPAY | END 2023-11-27 23:59 | disposition home or self-care (01) | LOC: SPT 11:23 | PROVIDERS: PCP Family Medicine; Visit Provider Family Medicine | DX: I63.9 Cerebral infarction, unspecified (principal) | CPT/HCPCS: 97110; 97112; 97161 ==

== ENCOUNTER 2023-11-28 06:00 | Outpatient (RCR) | payer MEDICARE, OTHER, SELFPAY | END 2023-12-26 23:59 | disposition home or self-care (01) | LOC: SPT 06:00 | PROVIDERS: PCP Family Medicine; Visit Provider Family Medicine | DX: I63.9 Cerebral infarction, unspecified (principal) | CPT/HCPCS: 97110; 97112 ==

== ENCOUNTER → 2023-12-17 09:05 | Outpatient (BNVA) | payer MEDICARE, OTHER, SELFPAY | PROVIDERS: PCP Family Medicine; Visit Provider Family Medicine | DX: I10 Essential (primary) hypertension (principal); I48.91 Unspecified atrial fibrillation; I48.92 Unspecified atrial flutter; E78.5 Hyperlipidemia, unspecified | CPT/HCPCS: 80053; 80061; 85025 ==

== ENCOUNTER → 2023-12-18 13:47 | Outpatient (BNVA) | payer MEDICARE, OTHER, SELFPAY | PROVIDERS: PCP Family Medicine; Visit Provider Internal Medicine Cardiovascular Disease | DX: I48.91 Unspecified atrial fibrillation (principal); I48.92 Unspecified atrial flutter; R00.1 Bradycardia, unspecified; I65.23 Occlusion and stenosis of bilateral carotid arteries; I10 Essential (primary) hypertension; E78.5 Hyperlipidemia, unspecified; Z87.891 Personal history of nicotine dependence | CPT/HCPCS: 99214 ==

== ENCOUNTER → 2024-03-26 10:33 | Outpatient (BNVA) | payer MEDICARE, OTHER, SELFPAY | PROVIDERS: PCP Family Medicine; Visit Provider Family Medicine | DX: I10 Essential (primary) hypertension (principal); I69.319 Unspecified symptoms and signs involving cognitive functions following cerebral infarction | CPT/HCPCS: 80053; 85025 ==

== ENCOUNTER → 2024-06-17 14:20 | Outpatient (BNVA) | payer MEDICARE, OTHER, SELFPAY | PROVIDERS: PCP Family Medicine; Visit Provider Internal Medicine Cardiovascular Disease | DX: I48.91 Unspecified atrial fibrillation (principal); I48.92 Unspecified atrial flutter; R00.1 Bradycardia, unspecified; I65.23 Occlusion and stenosis of bilateral carotid arteries; I10 Essential (primary) hypertension; E78.5 Hyperlipidemia, unspecified | CPT/HCPCS: 99214 ==

== ENCOUNTER → 2024-10-05 09:44 | Outpatient (BNVA) | payer MEDICARE, OTHER, SELFPAY | PROVIDERS: PCP Family Medicine; Visit Provider Family Medicine | DX: I63.9 Cerebral infarction, unspecified (principal); I48.91 Unspecified atrial fibrillation; I48.92 Unspecified atrial flutter; I10 Essential (primary) hypertension; N18.9 Chronic kidney disease, unspecified; I65.23 Occlusion and stenosis of bilateral carotid arteries; R09.02 Hypoxemia | CPT/HCPCS: 80053; 80061; 85025 ==

== ENCOUNTER → 2025-01-18 13:17 | Outpatient (BNVA) | payer MEDICARE, OTHER, SELFPAY | PROVIDERS: PCP Family Medicine; Visit Provider Nurse Practitioner Family | DX: I65.23 Occlusion and stenosis of bilateral carotid arteries (principal); R06.02 Shortness of breath; I10 Essential (primary) hypertension; I48.91 Unspecified atrial fibrillation; I48.92 Unspecified atrial flutter; R00.1 Bradycardia, unspecified; E78.5 Hyperlipidemia, unspecified | CPT/HCPCS: 36415; 80048; 83880; 99214 ==

== ENCOUNTER 2025-02-18 14:56 | Outpatient (CLI) | payer MEDICARE, OTHER, SELFPAY ==
--- NOTE | 2025-02-18 15:00 | USCV_ITS ---
Salbador Blankenship Age: 89 Gender: M : 1935 Exam Date: 02/18/2025 15:07 Ordering Phys: Alana Osorio NP Technologist: JASON Exam Location: [facility] [place] Indication: SoB BP: 168 / 84 HR: 67 Rhythm: Sinus Technical Quality: Adequate MEASUREMENTS (Male / Female) Normal Values 2D ECHO LV Diastolic Diameter PLAX 4.6 cm 4.2 - 5.9 / 3.9 - 5.3 cm IVS Diastolic Thickness 1.5 cm 0.6 - 1.0 / 0.6 - 0.9 cm IVS Systolic Thickness 1.9 cm LVPW Diastolic Thickness 1.4 cm 0.6 - 1.0 / 0.6 - 0.9 cm LVPW Systolic Thickness 1.5 cm LVOT Diameter 1.8 cm LV Ejection Fraction 2D Teich 40.7 % LV Ejection Fraction MOD 4C 58.9 % LV Ejection Fraction MOD 2C 63.2 % LV Ejection Fraction 2C AL 64.7 % LA Diameter 3.8 cm RA Systolic Volume 4C AL 30.1 ml RA Systolic Volume 4C MOD 29.9 ml LA Sys Volume AL 42.1 cm cubed LA Sys Volume Index AL 23.0 cm cubed/m squared Aorta at Sinotubular Diameter 2.9 cm M-MODE LA Ao Ratio MM 1.7 AV Cusp Separation MM 1.5 cm DOPPLER AV Peak Velocity 184.7 cm/s LVOT Peak Velocity 129.0 cm/s AV Area Cont Eq vti 1.8 cm squared AV Area Cont Eq pk 1.8 cm squared MV Peak Velocity 147.0 cm/s MV Area PHT 3.6 cm squared Mitral E to A Ratio 0.7 TR Peak Velocity 175.0 cm/s TR Peak Gradient 12.3 mmHg TV Peak E Velocity 98.0 cm/s PV Peak Velocity 120.0 cm/s FINDINGS Left Ventricle Normal left ventricular size and systolic function, EF 63%. Mild left ventricular hypertrophy. No regional wall motion abnormalities. Grade I/IV diastolic dysfunction (abnormal relaxation filling pattern), normal to mildly elevated filling pressures. Right Ventricle The right ventricle is normal in size and function. Right Atrium Normal right atrial size. Left Atrium Mildly increased left atrial size. Mitral Valve Moderate mitral annular calcification. Aortic Valve Mild eccentric aortic valve regurgitation. Tricuspid Valve Thickened tricuspid valve. Trace tricuspid valve regurgitation. Pulmonic Valve No gross abnormalities noted Pericardium No pericardial effusion. Aorta Normal size aortic root and proximal ascending aorta. IVC Inferior vena cava not visualized. CONCLUSIONS Normal left ventricular size and systolic function, EF 63%. Mild left ventricular hypertrophy. No regional wall motion abnormalities. Grade I/IV diastolic dysfunction (abnormal relaxation filling pattern), normal to mildly elevated filling pressures. Mildly increased left atrial size. Moderate mitral annular calcification. Mild eccentric aortic valve regurgitation. Thickened tricuspid valve. Trace tricuspid valve regurgitation. The PA pressure could not be calculated because of the poor Doppler signals There is no pericardial effusion. No similar previous studies are available for comparison Dr Adiel Gallo MD [facility] (Electronically Signed) Final Date: 18 February 2025 22:40 S
--- NOTE | 2025-02-18 16:00 | USCV_ITS ---
Salbador Blankenship Age: 89 Gender: M : 1935 Exam Date: 02/18/2025 15:25 Ordering Phys: Alana Osorio NP Technologist: JASON [place] [facility] [place]ication: Stenosis Risk Factors: Previous Vascular Surgery: Right Brachial BP: / Left Brachial BP: / Right Left Velocity (cm/s) Spectral Plaque Velocity (cm/s) Spectral Plaque Syst/Diast Broadening Syst/Diast Broadening 83.90/ 14.10 Prox CCA 58.90 / 11.90 79.20/ 14.00 Mid CCA 54.50 / 16.30 85.00/ 14.70 Distal CCA 58.50 / 9.70 119.30/30.20 Prox ICA 91.80 / 12.40 99.40/ 32.30 Mid ICA 26.60 / 6.10 105.50/27.80 Distal ICA 80.40 / 13.80 94.00 ECA 116.20 1.40 ICA/CCA 1.60 Antegrade Vertebral Antegrade 47.70/ 0.00 cm/s 55.70/ 11.30 cm/s Bi Subclavian Tri 80.50 110.2 0 CONCLUSIONS Right ICA stenosis <50%. Moderate atheromatous plaque right carotid bulb/ICA. Left ICA stenosis <50%. Moderate atheromatous plaque left carotid bulb/ICA. Normal antegrade Doppler flow noted in the right vertebral artery. Normal antegrade Doppler flow noted in the left vertebral artery. Nahum Tubbs MD (Electronically Signed) Final Date: 18 February 2025 16:39 S
== END 2025-02-18 14:57 | disposition home or self-care (01) ==
PROVIDERS: PCP Family Medicine; Visit Provider Nurse Practitioner Family
DX: R06.02 Shortness of breath (principal); I65.23 Occlusion and stenosis of bilateral carotid arteries; R93.1 Abnormal findings on diagnostic imaging of heart and coronary circulation; I34.81 Nonrheumatic mitral (valve) annulus calcification; I35.1 Nonrheumatic aortic (valve) insufficiency; I07.9 Rheumatic tricuspid valve disease, unspecified
CPT/HCPCS: 93306; 93880

== ENCOUNTER → 2025-03-23 08:21 | Outpatient (BNVA) | payer MEDICARE, OTHER, SELFPAY | PROVIDERS: PCP Family Medicine; Visit Provider Family Medicine | DX: N18.9 Chronic kidney disease, unspecified (principal); R60.9 Edema, unspecified | CPT/HCPCS: 80048; 85025 ==

== ENCOUNTER 2025-09-20 23:59 | Inpatient (IN) | payer MEDICARE, OTHER, SELFPAY ==
[2025-09-21] VITALS (72 sets, daily range): BP systolic 70–166; BP diastolic 43–99; PULSE 60–151; RESP 17–37; TEMP 36.4–36.9; O2SAT 90–100; BMI 25.1
--- NOTE | 2025-09-21 00:02 | ECG_ITS ---
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 Measurements Intervals Mcbain Rate: 151 P: 0 MI: 0 QRS: -46 QRSD: 167 T: 42 QT: 311 QTc: 493 Interpretive Statements SVT ( likely underlying short MI with delta wave- WPW) LEFT VENTRICULAR HYPERTROPHY AND ST-T CHANGE [VOLTAGE CRITERIA PLUS ST/T ABNORMALITY] Compared to ECG 08/22/2021 08:25:53 Intraventricular conduction delay now present Sinus rhythm no longer present ST (T wave) deviation still present Electronically Signed On 09-23-2025 17:53:28 THREAD CLIPPER by Suleiman Wilson M.D. [id number]
--- NOTE | 2025-09-21 00:02 | XRR_ITS ---
PROCEDURE INFORMATION: Exam: XR Chest Exam date and time: 09/21/2025 12:21 AM Age: 89 years old Clinical indication: Other: Weakness TECHNIQUE: Imaging protocol: Radiologic exam of the chest. Views: 1 view. COMPARISON: CT chest w con* [id number] 01/05/2022 10:37 AM FINDINGS: Lungs: See Pleural spaces finding. Pleural spaces: Small right and moderate left pleural effusions. Dependent airspace consolidation throughout the lower lung bassett, preferentially on the left side, consistent with multilobar pneumonia. Heart/Mediastinum: Cardiomegaly. Bones/joints: Unremarkable. XR/XR chest 1V portable [id number] IMPRESSION: Small right and moderate left pleural effusions. Dependent airspace consolidation throughout the lower lung bassett, preferentially on the left side, consistent with multilobar pneumonia.
--- OUTSIDE RECORDS SUMMARY | 2025-09-21 00:08 | XMS_ITS | Clinical Summary ---
Author Organization [facility] Address [address] [place]: Epic Prelude ADT CHANDA INIGUEZ GABI [id number] Care Team Providers Care Technician Assistant Name Role Phone Monty, Margoth Alexis APN Primary Care Provider Allergies No known active allergies Medications HYDROcodone-delmar taminophen (NORCO) 5-325 mg tabletIndicatio ns:Left inguinal hernia Take 1-2 Tablets by mouth every 6 hours as needed for Pain. 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 Gender Identity Not on file Sexual Orientation Not on file Last Filed Vital Signs Vital Sign Reading Time Taken Comments Blood Pressure 136/74 03/17/2019 4:45 PM CDT Pulse 59 03/17/2019 4:45 PM CDT Temperature 36.3 C (97.4 F) 03/17/2019 4:45 PM CDT Respiratory Rate 16 03/17/2019 4:45 PM CDT Oxygen Saturation - - Inhaled Oxygen Concentration - - Weight 74 kg (163 lb 2.3 oz) 03/17/2019 12:25 PM CDT Height 177.8 cm (5' 10 ) 03/17/2019 12:25 PM CDT Body Mass Index 23.41 03/17/2019 12:25 PM CDT Plan of Treatment Health Maintenance Due Date Last Done Comments DTAP/TDAP/TD VACCINES (1 - Tdap) 1956 PNEUMOCOCCAL VACCINE 50+ YEARS (1 of 1 - PCV) 07/31/19 87 ZOSTER VACCINE (1 of 2) 1987 RSV VACCINE (60+ or ) (1 - 1-dose 75+ series) 2012 INFLUENZA VACCINE (#1) 2025 2018 Medical Devices Implanted Type Area Packaging Machine Supplies Distributor Device Identifier Shelf Expiration Date Model / Serial / Lot Mesh Prolene Lg Phsl - [id number] Implanted:Qty: 1 on 03/17/2019 by Aakash Victoria DO Mesh Left: Inguinal [employer] 08/27/2023 PHSL / / [id number] Care Teams Technician Assistant Relationship Specialty Start Date End Date Monty, Margoth Alexis APN [address] [place] [id number] PCP - General NURSE PRACTITIONER 01/25/14
--- OUTSIDE RECORDS SUMMARY | 2025-09-21 00:09 | XMS_ITS | Clinical Summary ---
Author Organization [facility] Address [address] [place] [address] Care Team Providers Care Sliver Chopper Name Role Phone Monty, Margoth Alexis APN Primary Care Provider [phone] Allergies No known active allergies Medications LORazepam (ATIVAN) 1 mg tablet Take 1 mg by mouth every 6 hours as needed. 1/2 tab Active olmesartan (BENICAR) 20 mg tablet Take 20 mg by mouth daily. 1/2 pill Active triamterene-hyd rochlorothiazid e (DYAZIDE) 37.5-25 mg capsule Take 1 Cap by mouth daily paratransit operator. 1/2 cap Active tamsulosin (FLOMAX) 0.4 mg capsule Take 0.4 mg by mouth daily. Active esomeprazole (NEXIUM) 40 mg Capsule, Delayed Release(E.C.) Take 40 mg by mouth daily before breakfast. Active aspirin (ECOTRIN EC) 81 mg Tablet, Delayed Release (E.C.) Take 81 mg by mouth daily. Active omega-3 fatty acids-fish oil (FISH OIL) 300-1,000 mg Capsule Take by mouth daily. Active HYDROcodone-delmar taminophen (NORCO) 5-325 mg tabletIndicatio ns:Left inguinal hernia Take 1-2 Tablets by mouth every 6 hours as needed for Pain. 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 Gender Identity Not on file Sexual Orientation Not on file Last Filed Vital Signs Vital Sign Reading Time Taken Comments Blood Pressure 136/74 03/17/2019 4:45 PM CDT Pulse 59 03/17/2019 4:45 PM CDT Temperature 36.3 C (97.4 F) 03/17/2019 4:45 PM CDT Respiratory Rate 16 03/17/2019 4:45 PM CDT Oxygen Saturation 94% 03/17/2019 4:45 PM CDT Inhaled Oxygen Concentration - - Weight 74 [...] 2025 2018 Medical Devices Implanted Type Area Psychological Aide Device Identifier Shelf Expiration Date Model / Serial / Lot Mesh Prolene Lg Phsl - [id number] Implanted:Qty: 1 on 03/17/2019 by Aakash Victoria DO at [facility] Mesh Left: Inguinal [employer] 08/27/2023 PHSL / / [id number] Insurance MEDICARE PART A AND B [employer] [facility] Advance Directives For more information, please contact: [phone] * Full Code (Latest Code Status on File) Date Activated Date Inactivated Comments 03/17/2019 1:02 PM 03/17/2019 3:50 PM * Full Code Date Activated Date Inactivated Comments 03/17/2019 11:00 AM 03/17/2019 1:02 PM Care Teams Sliver Chopper Relationship Specialty Start Date End Date Margoth Millan APN [address] [address] PCP - General NURSE PRACTITIONER 01/25/14
--- OUTSIDE RECORDS SUMMARY | 2025-09-21 00:09 | XMS_ITS | Encounter Summary ---
Author Organization [facility] Address [address] [place] [address] Care Team Providers Care Monomer Recovery Supervisor Name Role Phone Margoth Millan APN Primary Care Provider [phone] Encounter Details Date Type Department Care Team (Latest Contact Info) Description 12/18/2006 Outpatient [facility] Podiatry-Sebastian Mckinney Karma [address] [place] [address] Siva Resendez, DPM [address] [place] [address] Onychia of Toe (Primary Dx); Ingrowing Nail; Dermatophytosis of Nail Social History Tobacco Use Types Packs/Day Years Used Date Smoking Tobacco: Never Assessed Sex and Gender Information Value Date Recorded Sex Assigned at Not on file 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
--- OUTSIDE RECORDS SUMMARY | 2025-09-21 00:09 | XMS_ITS | Encounter Summary ---
Author Organization [facility] Address [address] [place] [address] Care Team Providers Care Dispatcher Maintenance Service Name Role Phone Margoth Millan APN Primary Care Provider [phone] Encounter Details Date Type Department Care Team (Latest Contact Info) Description 06/03/2007 Outpatient [facility] Podiatry-Sebastian Mckinney Karma [address] [place] [address] Siva Resendez, DPM [address] [place] [address] Ingrowing Nail (Primary Dx); Dermatophytosis of Nail Social History Tobacco Use Types Packs/Day Years Used Date Smoking Tobacco: Never Assessed Sex and Gender Information Value Date Recorded Sex Assigned at Not on file 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 [address] PCP - General NURSE PRACTITIONER 01/25/14 documented as of this encounter
--- NOTE | 2025-09-21 00:20 | W.ED.WEAKNES ---
HPI - Weakness General: Chief complaint: Weakness Stated complaint: WEAKNESS Time Seen by Provider: 09/21/25 00:00 History of Present Illness: 89-year-old male presents emergency room with complaint of weakness decreased appetite. He has not been eating well. Patient has a history of previous stroke with some right-sided deficits he is not on any anticoagulants other than full dose aspirin. He does have a history of atrial fibrillation per the cardiology notes he is on metoprolol for this. He denies any chest pain no fever sweats or chills. EMS reported his oxygen saturation was low when they arrived he was satting 85% at rest on room air decreased to 73% with any exertion. On arrival here patient awake alert oriented he is uncertain whether or not he has had A-fib in the past he does recall having a stroke he denies any chest or abdominal pain. is not present at the bedside but is his main caregiver at home Associated symptoms: Denies chest pain, chills, dysuria or fever(s) Related Data Home Medications ?Medication ?Instructions ?Recorded ?Confirmed latanoprost 0.005 % eye drops 1 drop ophthalmic (eye) BEDTIME 08/16/20 09/09/25 cholecalciferol (vitamin D3) 125 125 mcg PO QPM 09/21/20 09/09/25 mcg (5,000 unit) tablet (Vitamin D3) vit C 250 mg-vit E 90 mg-zinc 40 1 cap PO QPM 08/22/21 09/09/25 mg-copper 1 [id number] capsule (PreserVision AREDS-2) vitamin A 1 cap PO QPM 08/22/21 09/09/25 aspirin 325 mg tablet 325 mg PO DAILY 01/18/22 09/09/25 docusate sodium 100 mg capsule 200 mg PO BEDTIME 01/18/22 09/09/25 (Colace) mecobalamin (vitamin B12) 1,000 1,000 mcg PO DAILY 06/10/23 09/09/25 mcg chewable tablet metoprolol tartrate 50 mg tablet 75 mg PO BID 09/21/25 09/21/25 Previous Rx's ?Medication ?Instructions ?Recorded furosemide 40 mg tablet (Lasix) 20 mg (1/2 x 40 mg) PO DAILY #90 02/15/25 tabs olmesartan 20 mg tablet See Rx Instructions .Route 09/09/25 .COMPLEX #30 tabs tamsulosin 0.4 mg capsule See Rx Instructions .Route 09/09/25 .COMPLEX #180 caps atorvastatin 80 mg tablet See Rx Instructions .Route 09/20/25 .COMPLEX #90 tabs Allergies Allergy/AdvReac Type Severity Reaction Status Date / Time ciprofloxacin Allergy ALGY-Swell Verified 01/18/25 13:22 Lip/Tongue/Throat amlodipine AdvReac edema Verified 01/18/25 13:22 Review of Systems Const: Denies: fever(s) or chills Card: Reports: dyspnea on exertion and orthopnea; Denies: chest pain Resp: Reports: dyspnea GI: Denies: abdominal pain : Denies: dysuria, urinary frequency or urinary urgency Musc: Denies: neck pain or back pain Skin/Breast: Denies: rash PFSH ED PFSH: Medical History Benign essential HTN Atrial fibrillation and flutter Patient apparently has a history of atrial flutter and fibrillation. He had an event monitor in 2021 and was found to have no recurrence of fibrillation or flutter. He is off the oral anticoagulant at this time. CVA, old, cognitive deficits Lymphadenopathy Abdominal, followed by hematology/oncology Carotid artery disease HTN (hypertension), benign GERD (gastroesophageal reflux disease) Glaucoma Hypertension Surgical History Status post right inguinal hernia repair (09/21/20) Status post colonoscopy (09/16/20) H/O esophagogastroduodenoscopy (09/16/20) H/O splenectomy H/O left inguinal hernia repair H/O circumcision Family History Other Cancer Denies family history of Diabetes CAD (coronary artery disease) Anesthesia complication Bleeding disorder Social History Smoking and tobacco/nicotine status: never used tobacco/nicotine Alcohol intake: never Substance/Drug Use: never Household members: spouse Marital status: Current occupational status: retired Physical Exam Const: GENERAL APPEARANCE: cooperative ORIENTATION/CONSCIOUSNESS: Yes awake, Yes oriented to person, Yes oriented to place and Yes oriented to time HENMT: COMMON NORMALS: normocephalic, atraumatic and hearing grossly normal bilaterally HEAD & SCALP: normocephalic and atraumatic Resp: COMMON NORMALS: normal respiratory effort, No retractions, No use of accessory muscles and clear to auscultation bilaterally AUSCULTATION: clear to auscultation bilaterally Cardio: COMMON NORMALS: No murmurs present (Cardio) RATE: tachycardic RHYTHM: abnormal rhythm irregularly irregular GI: COMMON NORMALS: Soft to palpation and No hepatosplenomegaly present AUSCULTATION: Yes normoactive bowel sounds PALPATION: Yes Soft to palpation, No Tenderness to palpation present (GI), No Guarding due to palpation present (GI) and Yes No hepatosplenomegaly present Extremity: COMMON NORMALS: normal to inspection, capillary refill normal, no clubbing, cyanosis or edema, no calf tenderness and no pedal edema Neuro: SENSORIUM/ORIENTATION: Yes oriented to person, Yes oriented to place and Yes oriented to time Skin: COMMON NORMALS: no rashes or lesions noted GENERAL SKIN EXAM: no rashes or lesions noted Procedures Procedural Sedation Indication: other (Cardioversion) ASA Class: I Preparation: night monitor applied, pulse oximeter, supplemental O2 applied (Had been applied earlier due to patient's hypoxemia due to CHF), suction/airway equipment at bedside and IV secured Ketamine: IV Ketamine dose (mg): 100 Complications: hypoxia Interventions: airway repositioned, suctioning, assist by BVM and other (Nasopharyngeal and oropharyngeal airway is used) Additional Comments: Patient became hypopneic after ketamine. Hysterectomized airway was repositioned a and nasopharyngeal airway was then placed and subsequently a oropharyngeal airway airway. His oxygen saturations were maintained in the upper 90s. He was given [id number] ventilation assist for a time then we were able to de-escalate. Oropharyngeal airway was removed [id number] was shortly stopped afterwards and he was switched to an oxy mask finally as he began to wake up for that the nasopharyngeal airway was removed. Course Vital Signs: Vital signs: Vital Signs Temperature 98.5 F 09/21/25 00:00 Pulse Rate 79 09/21/25 05:05 Respiratory Rate 26 H 09/21/25 05:05 Blood Pressure 114/65 09/21/25 05:05 Pulse Oximetry 99 09/21/25 05:05 Oxygen Delivery Me thod Oxymask 09/21/25 04:47 Oxygen Flow Rate 4 09/21/25 04:47 MDM - Weakness Medical Decision Making Patient seen and reassessed his heart rate is not responding to Cardizem. Will switch to amiodarone bolus and drip. Furthermore his blood pressure is decreasing. His previous echo was normal however his chest x-ray looks like he has signs of heart failure on today's chest x-ray is requiring oxygen which he is normally does not require. Will do the amiodarone bolus and drip and continue to reassess 0210 patient reassessed he does not have any worsening heart failure however his blood pressures persistently low. His heart rate has improved from 150s into the upper 130s however his blood pressure has not improved with the amiodarone bolus and drip has been started. Will likely cardiovert if does not improve in short order. Have discussed with the hospitalist will change him to ICU. 0255 Patient's pressure did not rebound after stopping the Cardizem and his rate did not improve significantly after switching to amiodarone. Discussed with the patient he was still cognizant at that time well enough to answer questions we discussed the conscious sedation discussed that is going to recommend that he be cardioverted he was willing to undergo but was concerned about being awake for the procedure explained to him the conscious sedation would be effective for managing this. Patient wishes to proceed. 0340 estimated weight is 79 kg, patient given 100 mg of ketamine for conscious sedation. Consultation was effective and did require [id number] for a time as he became somewhat hypoxic and PE and oropharyngeal airway was placed were able to adequately control his oxygenation. He cardioverted on the first synchronized attempt at 100 J. He was mildly bradycardic with a heart rate in the 60s. Blood pressure remained low. He was started on dopamine at 3 months was immediately available and is titrated up to 5. Heart rate improved his blood pressure did not improve significantly he was switched to Levophed which was started at 8 and then titrated to 10 rate is improved to 80 and blood pressure is improved to 98 systolic. Patient continues to remain sedate. 0351. Continues to be sedate from the ketamine. Blood pressures are improving herbal to titrate the Levophed down to 6. Restarted the amiodarone after patient and her brief run of heart rate in the 140s. Stat echocardiogram ordered quality systems technician reports seeing a vegetation on the aortic valve. Had reviewed echo done January this year earlier in the visit. There is no mention of vegetations on the valve at that time. Dose of vancomycin ordered to be continued per hospitalist pending final read on the echocardiogram. White count was normal lactic acid was normal. Blood cultures were done suspecting patient may have underlying pneumonia. Chest x-ray does look significantly fluid overloaded. Did not give IV fluids because I am concerned earlier that if we gave a significant mount of IV fluid would worsen his condition overall he was already requiring oxygen suspected he had heart failure that was precipitated by his atrial fibrillation. Preliminary evaluation at bedside echo pending cardiology read is significantly reduced ejection fraction of 35%. Radiology had read as possible underlying pneumonia for which we started ceftriaxone and Zithromax initially. He has significant right-sided increased pressures with tricuspid regurg no respiratory variation in his IVC. We did start antibiotics although I believe there is more heart failure than there is actually infectious component at this time his lactate was normal and there is no leukocytosis. Have discussed with hospitalist they will decide whether or not to de-escalate antibiotics including the vancomycin that was added after concern for vegetation on the echocardiogram. 0430 patient has recovered from sedation is now awake but still somewhat confused and disoriented he is able to respond verbally. I believe this is a residual from the conscious sedation for cardioversion. He has been titrated off Levophed is still on the amiodarone his rate is well-controlled. His blood pressures improved to 111/63 in the setting of 100% on 4 L oxygen supplementation by mask. Patient being transferred to ICU. Medical Records FINDINGS Left Ventricle Normal left ventricular size and systolic function, EF 63%. Mild left ventricular hypertrophy. No regional wall motion abnormalities. Grade I/IV diastolic dysfunction (abnormal relaxation filling pattern), normal to mildly elevated filling pressures. Right Ventricle The right ventricle is normal in size and function. Right Atrium Normal right atrial size. Left Atrium Mildly increased left atrial size. Mitral Valve Moderate mitral annular calcification. Aortic Valve Mild eccentric aortic valve regurgitation. Tricuspid Valve Thickened tricuspid valve. Trace tricuspid valve regurgitation. Pulmonic Valve No gross abnormalities noted Pericardium No pericardial effusion. Aorta Normal size aortic root and proximal ascending aorta. IVC Inferior vena cava not visualized. CONCLUSIONS Normal left ventricular size and systolic function, EF 63%. Mild left ventricular hypertrophy. No regional wall motion abnormalities. Grade I/IV diastolic dysfunction (abnormal relaxation filling pattern), normal to mildly elevated filling pressures. Mildly increased left atrial size. Moderate mitral annular calcification. Mild eccentric aortic valve regurgitation. Thickened tricuspid valve. Trace tricuspid valve regurgitation. The PA pressure could not be calculated because of the poor Doppler signals There is no pericardial effusion. No similar previous studies are available for comparison Dr Adiel Gallo MD [facility] (Electronically Signed) Final Date: 18 February 2025 Lab Data I reviewed the patient's lab results. 09/21/25 00:21 09/21/25 00:21 Radiology Impressions Chest X-Ray 09/21/25 00:02 IMPRESSION: Small right and moderate left pleural effusions. Dependent airspace consolidation throughout the lower lung bassett, preferentially on the left side, consistent with multilobar pneumonia. Laboratory Results WBC 9.00 10^3/uL (3.29-11.43) 09/21/25 00:21 RBC 3.99 10^6/uL (3.85-5.65) 09/21/25 00: Hgb 12.90 g/dL (11.27-16.99) 09/21/25 00: Hct 39.5 % (37-53) 09/21/25 00: MCV 99.0 fl (82-101) 09/21/25: MCH 32.3 pg (27-33) 09/21/25 00: MCHC 32.7 g/dL (30-55) 09/21/25 00: RDW 18.7 % (12.1-15.1) H 09/21/25 00: Plt Count 181 10^3/cmm (157-399) 09/21/25: MPV 11.2 fL (7.4-10.4) H 09/21/25 00:21 Neut % (Auto) 78.8 % 09/21/25 00:21 Lymph % (Auto) 11.8 % 09/21/25:21 Mariposa % (Auto) 7.3 % 09/21/25: Eos % (Auto) 1.4 % 09/21/25: Baso % (Auto) 0.4 % 09/21/25 00: Neut # (Auto) 7.08 10^3/uL (1.8-7.7) 09/21/25 00:21 Lymph # (Auto) 1.1 10^3/uL (0.8-4.8) 09/21/25 00:21 Mariposa # (Auto) 0.7 10^3/uL (0.2-0.9) 09/21/25 00:21 Eos # (Auto) 0.1 10^3/uL (0.0-0.8) 09/21/25 00:21 Baso # (Auto) 0.0 10^3/uL (0.0-0.1) 09/21/25 00:21 Nucleated RBC % (auto) 0 % 09/21/25 00: Nucleated RBCs # 0.0 /100WBC 09/21/25 00:21 Sodium 142 mmol/L (136-145) 09/21/25 00: Potassium 4.9 mmol/L (3.5-5.1) 09/21/25 00: Chloride 109 mmol/L (98-107) H 09/21/25 00: Carbon Dioxide 24 mmol/L (22-29) 09/21/25 00: Anion Gap 13.9 (5-19) 09/21/25 00:21 BUN 47 mg/dL (8-23) H 09/21/25 00:21 Creatinine 1.8 mg/dL (0.7-1.2) H 09/21/25 00:21 GFR Calculation Not Reportable 09/21/25 00: Glucose 112 mg/dL (65-115) 09/21/25 00:21 Calculated Osmolality 307 mOsm/kg (285-295) H 09/21/25 00:21 Lactic Acid 1.6 mmol/L (0.5-2.2) 09/21/25 00:21 Calcium 8.9 mg/dL (8.5-10.5) 09/21/25 00:21 Total Bilirubin 0.5 mg/dL (0.15-1.2) 09/21/25 00:21 AST 22 U/L (0-40) 09/21/25 00:21 ALT 20 U/L (0-41) 09/21/25 00:21 Alkaline Phosphatase 166 U/L (40-130) H 09/21/25 00: Total Protein 7.5 g/dL (6.6-8.7) 09/21/25 00:21 Albumin 2.8 g/dL (3.5-5.2) L 09/21/25 00:21 Globulin 4.7 g/dL (1.3-4.6) H 09/21/25 00:21 All radiology interpretation(s) finalized by discharge ED provider radiology interpretation(s): Increased vascular congestion consistent with congestive heart failure Critical Care Time Critical Care Time: Critical Care Time: Yes Total Critical Care Time: 60 Attestation: The high probability of a clinically significant, sudden or life threatening deterioration of the patient's cardiovascular respiratory system(s) required my full and direct attention, intervention and personal management. The critical care time is as shown. This time is in addition to time spent performing any reported procedures but includes the following: [x] Data and vital sign review and interpretation [x] Patient assessment, examination and intervention [x] Documentation [x] Medication orders and management Discharge Plan Discharge Patient Disposition: Admitted As Inpatient Admit Provider: Dwight Loving Clinical Impression: Atrial fibrillation with RVR, Congestive heart failure (CHF), Community acquired pneumonia, History of CVA (cerebrovascular accident) Condition: Stable Coding Level of Care Code ED Painter Bottom for Janelle Silva
[2025-09-21 00:33] LABS: Hematocrit 39.5 % (37-53); Hemoglobin 12.90 g/dL (11.27-16.99); Mean Corpuscular HGB Conc 32.7 g/dL (30-55); Mean Corpuscular Hemoglobin 32.3 pg (27-33); Mean Corpuscular Volume 99.0 fl (82-101); Nucleated Red Blood Cells % 0 %; Platelet Count 181 10^3/cmm (157-399); Red Blood Count 3.99 10^6/uL (3.85-5.65); White Blood Count 9.00 10^3/uL (3.29-11.43)
[2025-09-21 00:53] LABS: Alanine Aminotransferase 20 U/L (0-41); Albumin Level 2.8 g/dL (3.5-5.2); Alkaline Phosphatase 166 U/L (40-130); Anion Gap 13.9 (5-19); Aspartate Amino Transferase 22 U/L (0-40); Blood Urea Nitrogen 47 mg/dL (8-23); Calcium 8.9 mg/dL (8.5-10.5); Carbon Dioxide 24 mmol/L (22-29); Chloride 109 mmol/L (98-107); Globulin 4.7 g/dL (1.3-4.6); Glucose 112 mg/dL (65-115); Osmolality Calculated 307 mOsm/kg (285-295); Potassium 4.9 mmol/L (3.5-5.1); Sodium 142 mmol/L (136-145); Total Protein 7.5 g/dL (6.6-8.7)
[2025-09-21 00:54] LABS: Lactic Sepsis W/Reflex 1.6 mmol/L (0.5-2.2)
[2025-09-21] MEDS: dilTIAZem 5 mg/mL SDV 5 mL 10 MG IVP ×2 (01:04→01:44)
[2025-09-21] MEDS: DILTIAZEM HCL/D5W 125 MG/125 ML BAG IV (01:13)
[2025-09-21] MEDS: cefTRIAXone 1,000 mg SDV 1000 MG IVP (01:46)
--- NOTE | 2025-09-21 02:22 | PM.HP ---
Providers/Chief Complaint Admitting Physician: Dwight Loving MD Primary Care Provider: Jorge Alberto Snyder MD Chief Complaint: WEAKNESS History of Present Illness Salbador Blankenship is a 89 year old male with history significant for atrial fibrillation(maintained on full dose aspirin), prior CVA with left-sided weakness, HTN, and CKD, who presented complaints of weakness. History is gathered from the patient and spouse separately. I am told the patient was fearful of getting up and going to the bathroom. Spouse reports he has had frequent falls. On the evening prior to my encounter, spouse called the fire department to help mobilize the patient. At some point, EMS was called and he was delivered to our facility. RN reports the patient was hypoxic in the 80s with EMS and had elevated heart rates. Patient mentions he felt like he had the flu two days ago with complaints of malaise, muscle aches, and a single episode of vomiting. Patient denies chest pain, palpitations, shortness of breath, diarrhea, or abdominal pain. Patient mentions he has been taking his medications routinely but spouse says this is not the case and that he has had poor oral intake as of late Medications/Allergies Home Medications ?Medication ?Instructions ?Recorded ?Confirmed ?Last Taken ?Type latanoprost 0.005 % eye drops 1 drop ophthalmic (eye) BEDTIME 08/16/20 09/09/25 09/20/20 History cholecalciferol (vitamin D3) 125 125 mcg PO QPM 09/21/20 09/09/25 09/20/20 History mcg (5,000 unit) tablet (Vitamin D3) vit C 250 mg-vit E 90 mg-zinc 40 1 cap PO QPM 08/22/21 09/09/25 Unknown History mg-copper 1 [id number]-qjahoz capsule (PreserVision AREDS-2) vitamin A 1 cap PO QPM 08/22/21 09/09/25 Unknown History aspirin 325 mg tablet 325 mg PO DAILY 01/18/22 09/09/25 Unknown History docusate sodium 100 mg capsule 200 mg PO BEDTIME 01/18/22 09/09/25 Unknown History (Colace) mecobalamin (vitamin B12) 1,000 1,000 mcg PO DAILY 06/10/23 09/09/25 Unknown History mcg chewable tablet furosemide 40 mg tablet (Lasix) 20 mg (1/2 x 40 mg) PO DAILY #90 02/15/25 09/09/25 Unknown Rx tabs olmesartan 20 mg tablet See Rx Instructions .Route 09/09/25 09/09/25 Unknown Rx .COMPLEX #30 tabs tamsulosin 0.4 mg capsule See Rx Instructions .Route 09/09/25 09/09/25 Unknown Rx .COMPLEX #180 caps atorvastatin 80 mg tablet See Rx Instructions .Route 09/20/25 Unknown Rx .COMPLEX #90 tabs metoprolol tartrate 50 mg tablet 75 mg PO BID 09/21/25 09/21/25 3 Weeks Ago History ~08/31/25 Allergies Allergy/AdvReac Type Severity Reaction Status Date / Time ciprofloxacin Allergy ALGY-Swell Verified 01/18/25 13:22 Lip/Tongue/Throat amlodipine AdvReac edema Verified 01/18/25 13:22 PFSH Acute PFSH: Medical History (Updated 09/21/25 @ 04:57 by Salo Funk DO) Benign essential HTN Atrial fibrillation and flutter Patient apparently has a history of atrial flutter and fibrillation. He had an event monitor in 2021 and was found to have no recurrence of fibrillation or flutter. He is off the oral anticoagulant at this time. CVA, old, cognitive deficits Lymphadenopathy Abdominal, followed by hematology/oncology Carotid artery disease HTN (hypertension), benign GERD (gastroesophageal reflux disease) Glaucoma Hypertension Surgical History Status post right inguinal hernia repair (09/21/20) Status post colonoscopy (09/16/20) H/O esophagogastroduodenoscopy (09/16/20) H/O splenectomy H/O left inguinal hernia repair H/O circumcision Family History Other Cancer Denies family history of Diabetes CAD (coronary artery disease) Anesthesia complication Bleeding disorder Social History Smoking and tobacco/nicotine status: never used tobacco/nicotine Alcohol intake: never Substance/Drug Use: never Household members: spouse Marital status: Current occupational status: retired Vitals/I&O/Wt Last Vital Signs Temp 98.5 F 09/21/25 00:00 Pulse 151 H 09/21/25 01:59 Resp 18 09/21/25 00:45 BP 95/71 09/21/25 01:59 Pulse Ox 100 09/21/25 01:59 O2 Del Method Nasal Cannula 09/21/25 01:59 O2 Flow Rate 2 09/21/25 01:59 09/20/25 09/20/25 09/21/25 14:59 22:59 06:59 Intake Total 7.959 / 7.959 Balance 7.959 / 7.959 Weight last 48 hrs Weight 79.379 kg Physical Exam Narrative: General exam is a white male, in no apparent distress and conversant. HEENT: Pupils equally round. Oropharynx clear. Neck is supple no lymphadenopathy or thyromegaly Cardiovascular tachycardic rate without murmur Lungs clear Abdomen is soft with positive bowel sounds, no obvious organomegaly Extremities no cyanosis clubbing or edema Neurologic: Alert, moves all extremities spontaneously Data 09/21/25 00:21 09/21/25 00:21 Micro: Microbiology 09/21/25 01:32 Blood Culture - Preliminary Blood SPECIMEN COLLECTED 09/21/25 00:21 Blood Culture - Preliminary Blood SPECIMEN COLLECTED A&P Assessment and plan 1. Atrial fibrillation with RVR: - In the ED, did not achieve rate control or conversion to NSR after diltiazem administration - Patient became hypotensive while amiodarone. ED physician made decision to cardiovert which restored sinus rhythm. However, patient became bradycardic and hypotension worsened leading to cardiogenic shock - Provided with dopamine and levophed with improvement of HR and BP. Will have patient transferred to ICU for further management. Patient is a DNR, confirmed with spouse this evening - Will also have patient placed on heparin infusion - Etiology likely due to his pneumonia and missing doses of his prescribed medications - STAT echo ordered and shows possible vegetation. 1Gm Vanc ordered. - Consult cardiology in the AM 2. Cardiogenic shock: - Plan as above 3. Community acquired bacterial pneumonia: - Provided Rocephin and Azithromycin in the ED. Will continue daily 4. Acute hypoxic respiratory failure: - PRN o2 to maintain O2 saturations above 92%. DNI. 5. CVA, old, cognitive deficits: - Plan as above 6. Weakness: - PT/OT consult PDMP PDMP Reviewed: Not Reviewed Attestations Medical Necessity Statement*: Patient requires at least two midnights inpatient for management of cardiogenic shock Coding Level of Care Code Acute Code for Chg Fwd Diagnoses Atrial fibrillation with RVR I48.91 Cardiogenic shock R57.0 Community acquired bacterial pneumonia J15.9 Acute hypoxic respiratory failure J96.01 CVA, old, cognitive deficits I69.319 Weakness R53.1
[2025-09-21] MEDS: amiodarone 150 MG/100 ML PREMIX 400 MG IV (02:24)
[2025-09-21] MEDS: AMIODARONE HCL/D5W 900 MG/500 ML BAG 33.33 MG IV (02:47)
--- NOTE | 2025-09-21 02:52 | PC.NURSE ---
MD Schofield made aware of soft BPs. advised to stop Cardizem drip and start amio. Pts bp remains soft, MD notified.
[2025-09-21] MEDS: ketamine 100 mg/mL Inj 5 mL IVP (03:12)
[2025-09-21] MEDS: DOPamine drip 400 MG/250 ML PREMIX 8.93 MG IV (03:19)
[2025-09-21] MEDS: norepinephrine 4 MG/250 ML BAG 30 MG IV ×2 (03:25→17:05)
--- NOTE | 2025-09-21 03:27 | ECG_ITS ---
[facility] Date[facility] 2025-09-21 Pat Name: Salbador Blankenship Department: Room: ICU10 Gender: Male Claim Inspector: : 1935 Requested By: Salo Shaffer Order Number: [id number] Kenny MD: Suleiman Wilson M.D. Measurements Intervals [place] Rate: 74 P: 57 [place]: 142 QRS: -48 QRSD: 164 T: 125 QT: 413 QTc: 459 Interpretive Statements SINUS RHYTHM with short [place] Likely Delta wave (WPW pattern) INTRAVENTRICULAR CONDUCTION DELAY [130+ ms QRS DURATION] Compared to ECG 09/21/2025 00:19:16Atrial Left ventricular hypertrophy no longer present ST (T wave) deviation no longer present Electronically Signed On 09-23-2025 17:52:20 STAPLING MACHINE OPERATOR by Suleiman Wilson M.D. [email or web address] [id number]
--- NOTE | 2025-09-21 03:31 | USCV_ITS ---
Salbador Blankenship Age: 89 Gender: M : 1935 Exam Date: 09/21/2025 03:42 Ordering Phys: Dwight Loving MD Technologist: LADI [place] [facility] [place]: sinus tachycardia History of Afib, prior CVA with residual LEFT hemiparesis, HTN, CKD BP: 83 / 43 HR: 81 Rhythm: Atrial fibrillation Technical Quality: Adequate MEASUREMENTS (Male / Female) Normal Values 2D ECHO LV Diastolic Diameter PLAX 4.0 cm 4.2 - 5.9 / 3.9 - 5.3 cm IVS Diastolic Thickness 1.5 cm 0.6 - 1.0 / 0.6 - 0.9 cm IVS Systolic Thickness 1.8 cm LVPW Diastolic Thickness 1.4 cm 0.6 - 1.0 / 0.6 - 0.9 cm LVPW Systolic Thickness 1.6 cm LVOT Diameter 1.7 cm LV Ejection Fraction 2D Teich 33.2 % LV Ejection Fraction MOD 4C 24.6 % LV Ejection Fraction MOD 2C 52.0 % LV Ejection Fraction 2C AL 52.7 % LA Diameter 3.5 cm Aorta at Sinotubular Diameter 2.8 cm IVC Diameter 2.2 cm M-MODE LA Ao Ratio MM 1.7 AV Cusp Separation MM 1.1 cm DOPPLER AV Peak Velocity 130.0 cm/s LVOT Peak Velocity 76.0 cm/s AV Area Cont Eq vti 1.3 cm squared AV Area Cont Eq pk 1.3 cm squared MV Peak Velocity 124.0 cm/s MV Area PHT 3.7 cm squared Mitral E to A Ratio 739.0 TV Peak Velocity 273.0 cm/s TR Peak Velocity 325.0 cm/s TR Peak Gradient 42.3 mmHg TV Peak E Velocity 46.0 cm/s PV Peak Velocity 66.0 cm/s FINDINGS Left Ventricle Mild concentric LVH. Hypokinesis of mid distal inferior, inferoseptal and inferolateral wall segments. Overall LVEF is moderately reduced at 45%. Right Ventricle Mildly dilated right ventricle with preserved RV systolic function. Right Atrium Moderately increased right atrial size. Left Atrium Moderately increased left atrial size. IA Septum Normal interatrial septum. Mitral Valve Thickened mitral valve leaflets. Moderately severe mitral regurgitation. Aortic Valve Thickened calcified aortic valve leaflet. There is mild aortic regurgitation. . There is a small size (0.8x.7 cm) mobile echogenic mass Tricuspid Valve Thickened tricuspid valve. Moderate tricuspid regurgitation. Elevated TVPG at 40 mmHg. Pulmonic Valve Structurally normal pulmonic valve. Mild pulmonary valve regurgitation. Pericardium No pericardial effusion. Aorta Normal size aortic root and proximal ascending aorta. IVC Dilated IVC with blunted respiratory response CONCLUSIONS Mild concentric LVH, with moderately reduced LV systolic function, LVEF 45%. Wall motion abnormalities as mentioned above Dilated right and left atria. Moderately severe MR, moderate tricuspid regurgitation. Elevated right heart and pulmonary pressure, 50 to 55 mmHg. Thickened calcified aortic valve with mild regurgitation. There is small size (0.8 cm) mobile echogenic mass over aortic valve. Clinical correlation needed for vegetation versus small thrombotic mass. Suleiman Wilson MD (Electronically Signed) Final Date: 21 September 2025 08:20 S
--- NOTE | 2025-09-21 04:28 | ECG_ITS ---
[facility] Date: 2025-09[facility]21 Pat Name: Salbador Blankenship Department: Room: ICU10 Gender: Male Debeader: : 1935 Requested By: Salo Shaffer Order Number: [id number] Kenny MD: Suleiman Wilson M.D. Measurements Intervals [place] Rate: 81 P: 59 [place]: 151 QRS: -44 QRSD: 172 T: 144 QT: 402 QTc: 469 Interpretive Statements SINUS RHYTHM Short MO with Interventricular conduction delay (likely WPW) Compared to ECG 09/21/2025 03:27:36 No significant changes Electronically Signed On 09-21-2025 10:18:31 PHOTOGRAPHER HELPER by Suleiman Wilson M.D. [email or web address] [id number]
[2025-09-21] MEDS: heparin 5,000 unit/mL INJ 1 mL IVP (04:33)
[2025-09-21] MEDS: heparin drip 25,000 UNIT/500 ML PREMIX 20 UNIT IV (04:39)
--- NOTE | 2025-09-21 04:46 | PC.NURSE ---
Cardioversion/Conscious sedation 0312 HR 136 BP 80/59 100mg of Ketamine given 0314 Shock @100J administered HR 61 CP 52/31 0318 OPA Placed 0319 Dopamine started @3 0325 Levo started @8 Dopamine stopped.
--- NOTE | 2025-09-21 04:49 | PC.NURSE ---
Pt started on heparin drip at 0439. New weight obtained due to pt being a poor historian upon arrival. Pts weight was 159.0 per the zeroed bed scale. Pt heparin drip started based off of this new weight. Drip started at 20 ml/hr based off of 72kg rounded weight. Arlyn Charge nurse verified with this nurse.
[2025-09-21 05:03] LABS: Glucose Urine UA Negative (Normal); Nitrate Urine Negative (Negative); Specific Gravity, Urine 1.021 (1.005-1.030)
[2025-09-21 05:08] LABS: Add Urine Microscopic? YES
[2025-09-21 05:21] LABS: UA Slide Review UA Slide Review Perf
[2025-09-21 05:29] LABS: Troponin(5th) Baseline 82 ng/L (0-15)
[2025-09-21 07:15] LABS: Troponin 5 2HR 55.29 ng/L (0-15)
[2025-09-21 07:17] LABS: Troponin 5 2HR Delta -26.71 ABS# (0-10)
[2025-09-21 07:23] LABS: Procalcitonin 0.19 ng/mL (0-0.5)
[2025-09-21 07:36] LABS: NT Pro B Type Natriuretic Pept 1106 pg/mL (0-450)
--- NOTE | 2025-09-21 08:53 | PM.CONSULT ---
Documented by User: KATHY Gallagher 09/21/25 11:18 Providers/Reason For Consult Consulting Physician/Specialty*: Dr Wilson, cardiology Reason for Consult*: atrial fibrillation s/p cardioversion Attending Physician: Alberto Wan Primary Care Provider: Jorge Alberto Snyder MD History of Present Illness History of Present Illness Salbador Blankenship is a 89 year old male with past medical history of atrial fibrillation, CVA, hypertension, CKD, frequent falls. He presented to the ER with weakness, found to be in atrial fibrillation with RVR, no improvement with diltiazem, amiodarone started but patient became hypotensive and required vasopressor. He agreed to cardioversion, which restored sinus rhythm with one shock. Pneumonia suspected. Amiodarone 1mg/min continued. Vasopressor has been weaned at the time of exam. Echocardiogram revealed LVEF 45%, which is a new decrease, was normal in January of this year. No chest pain or pressure now or in the recent past. No orthopnea or edema currently. Medications/Allergies Home Medications ?Medication ?Instructions ?Recorded ?Confirmed ?Last Taken ?Type latanoprost 0.005 % eye drops 1 drop ophthalmic (eye) BEDTIME 08/16/20 09/21/25 09/19/25 History cholecalciferol (vitamin D3) 125 125 mcg PO QPM 09/21/20 09/21/25 09/19/25 History mcg (5,000 unit) tablet (Vitamin D3) vit C 250 mg-vit E 90 mg-zinc 40 1 cap PO QPM 08/22/21 09/21/25 09/19/25 History mg-copper 1 [id number] capsule (PreserVision AREDS-2) vitamin A 1 cap PO QPM 08/22/21 09/21/25 Unknown History aspirin 325 mg tablet 325 mg PO DAILY 01/18/22 09/21/25 09/19/25 History docusate sodium 100 mg capsule 200 mg PO BEDTIME 01/18/22 09/21/25 09/19/25 History (Colace) mecobalamin (vitamin B12) 1,000 1,000 mcg PO DAILY 06/10/23 09/21/25 09/19/25 History mcg chewable tablet furosemide 40 mg tablet (Lasix) 20 mg (1/2 x 40 mg) PO DAILY #90 02/15/25 09/21/25 Unknown Rx tabs olmesartan 20 mg tablet See Rx Instructions .Route 09/09/25 09/21/25 Unknown Rx .COMPLEX #30 tabs tamsulosin 0.4 mg capsule See Rx Instructions .Route 09/09/25 09/21/25 Unknown Rx .COMPLEX #180 caps amlodipine 2.5 mg tablet 2.5 mg PO DAILY 09/21/25 09/21/25 Unknown History atorvastatin 80 mg tablet 80 mg PO DAILY 09/21/25 09/21/25 09/19/25 History esomeprazole magnesium 20 mg 20 mg PO .@NOON 09/21/25 09/21/25 09/19/25 History capsule,delayed release (Nexium 24HR) metoprolol tartrate 50 mg tablet 75 mg PO BID 09/21/25 09/21/25 3 Weeks Ago History ~08/31/25 Allergies Allergy/AdvReac Type Severity Reaction Status Date / Time ciprofloxacin Allergy ALGY-Swell Verified 01/18/25 13:22 Lip/Tongue/Throat amlodipine AdvReac edema Verified 01/18/25 13:22 Current Medications Generic Name Dose Route Start Last Admin Trade Name Freq PRN Reason Stop Dose Admin Aspirin 325 mg 09/21/25 05:39 09/21/25 05:59 Aspirin 325 Mg Tablet PO 325 mg DAILY DANNIELLE Administration AMIODARONE HCL/D5W 900 mg in 500 mls @ 0 mls/hr 09/21/25 02:15 09/21/25 03:43 Amiodarone 900 Mg/500 Ml-D5w IV 1 mg/min .Q0M DANNIELLE 33.33 mls/hr Protocol Titration Per Protocol Heparin Sodium/Sodium Chloride 25,000 unit in 500 mls @ 0 mls/hr 09/21/25 03:30 09/21/25 04:39 Heparin Drip IV 12.6 unit/kg/hr CONT DANNIELLE 20 mls/hr Protocol Administration Per Protocol Norepinephrine Bitartrate 4 mg in 250 mls @ 0 mls/hr 09/21/25 03:30 09/21/25 04:30 Levophed IV 0 mcg/min .Q0M DANNIELLE 0 mls/hr Protocol Titration Per Protocol PFSH Acute PFSH: Medical History Benign essential HTN Atrial fibrillation and flutter Patient apparently has a history of atrial flutter and fibrillation. He had an event monitor in 2021 and was found to have no recurrence of fibrillation or flutter. He is off the oral anticoagulant at this time. CVA, old, cognitive deficits Lymphadenopathy Abdominal, followed by hematology/oncology Carotid artery disease HTN (hypertension), benign GERD (gastroesophageal reflux disease) Glaucoma Hypertension Surgical History Status post right inguinal hernia repair (09/21/20) Status post colonoscopy (09/16/20) H/O esophagogastroduodenoscopy (09/16/20) H/O splenectomy H/O left inguinal hernia repair H/O circumcision Family History Other Cancer Denies family history of Diabetes CAD (coronary artery disease) Anesthesia complication Bleeding disorder Social History Smoking and tobacco/nicotine status: never used tobacco/nicotine Alcohol intake: never Substance/Drug Use: never Household members: spouse Marital status: Current occupational status: retired Vitals/I&O/Wt Last Vital Signs Temp 97.8 F 09/21/25 08:00 Pulse 80 09/21/25 08:00 Resp 18 09/21/25 08:00 BP 92/44 09/21/25 08:00 Pulse Ox 91 09/21/25 08:00 O2 Del Method Nasal Cannula 09/21/25 08:00 O2 Flow Rate 3 09/21/25 08:00 FiO2 2 09/21/25 05:45 09/20/25 09/21/25 09/21/25 22:59 06:59 14:59 Intake Total 643.573 / 643.573 220 / 220 Balance 643.573 / 643.573 220 / 220 Weight last 48 hrs Weight 155 lb Weight 155 lb Weight 159 lb Weight 175 lb Physical Exam Const: COMMON NORMALS: no acute distress and patient oriented x3 GENERAL APPEARANCE: cooperative and comfortable ORIENTATION/CONSCIOUSNESS: Yes awake, Yes oriented to person, Yes oriented to place and Yes oriented to time Chest: COMMONS NORMALS: normal inspection of the chest and normal palpation of entire chest wall CHEST: Yes Symmetrical chest wall rise Resp: COMMON NORMALS: normal respiratory effort, No retractions, No use of accessory muscles and clear to auscultation bilaterally EFFORT & INSPECTION: Yes symmetric chest movement AUSCULTATION: clear to auscultation bilaterally Cardio: COMMON NORMALS: regular rate, regular rhythm, S1 normal heart sound present, S2 normal heart sound present, No gallops present (Cardio), No clicks present (Cardio), No murmurs present (Cardio) and No rub (Cardio) RATE: regular rate RHYTHM: regular rhythm HEART SOUNDS: S1 normal heart sound present and S2 normal heart sound present PERIPHERAL PULSES: radial pulses present Extremity: COMMON NORMALS: no pedal edema Neuro: COMMON NORMALS: patient oriented x3 and moves all extremities SENSORIUM/ORIENTATION: Yes oriented to person, Yes oriented to place and Yes oriented to time Data 09/21/25 00:21 09/21/25 00:21 Micro: Microbiology 09/21/25 01:32 Blood Culture - Preliminary Blood SPECIMEN COLLECTED 09/21/25 00:21 Blood Culture - Preliminary Blood SPECIMEN COLLECTED A&P Assessment and plan 1. Atrial fibrillation and flutter: 2. Benign essential HTN: 3. History of CVA (cerebrovascular accident): 4. Community acquired bacterial pneumonia: Plan: Remains in sinus rhythm. Blood pressure soft. Continue amiodarone infusion. Echocardiogram read by Dr Wilson, currently favoring small thrombus rather than vegetation given lack of septic presentation. If required based on clinical course, this may be further evaluated with YAMIL. Treatment of pneumonia per hospitalist service. PDMP PDMP Reviewed: Not Reviewed Coding Level of Care Code Acute Code for [facility] Diagnoses Atrial fibrillation and flutter I48.91; I48.92 Benign essential HTN I10 History of CVA (cerebrovascular accident) Z86.73 Community acquired bacterial pneumonia J15.9 Documented by User: Suleiman Wilson MD 09/21/25 19:02 Medications/Allergies Home Medications ?Medication ?Instructions ?Recorded ?Confirmed ?Last Taken ?Type latanoprost 0.005 % eye drops 1 drop ophthalmic (eye) BEDTIME 08/16/20 09/21/25 09/19/25 History cholecalciferol (vitamin D3) 125 125 mcg PO QPM 09/21/20 09/21/25 09/19/25 History mcg (5,000 unit) tablet (Vitamin D3) vit C 250 mg-vit E 90 mg-zinc 40 1 cap PO QPM 08/22/21 09/21/25 09/19/25 History mg-copper 1 nn-bptjmq-htpyuc capsule (PreserVision AREDS-2) vitamin A 1 cap PO QPM 08/22/21 09/21/25 Unknown History aspirin 325 mg tablet 325 mg PO DAILY 01/18/22 09/21/25 09/19/25 History docusate sodium 100 mg capsule 200 mg PO BEDTIME 01/18/22 09/21/25 09/19/25 History (Colace) mecobalamin (vitamin B12) 1,000 1,000 mcg PO DAILY 06/10/23 09/21/25 09/19/25 History mcg chewable tablet furosemide 40 mg tablet (Lasix) 20 mg (1/2 x 40 mg) PO DAILY #90 02/15/25 09/21/25 Unknown Rx tabs olmesartan 20 mg tablet See Rx Instructions .Route 09/09/25 09/21/25 Unknown Rx .COMPLEX #30 tabs tamsulosin 0.4 mg capsule See Rx Instructions .Route 09/09/25 09/21/25 Unknown Rx .COMPLEX #180 caps amlodipine 2.5 mg tablet 2.5 mg PO DAILY 09/21/25 09/21/25 Unknown History atorvastatin 80 mg tablet 80 mg PO DAILY 09/21/25 09/21/25 09/19/25 History esomeprazole magnesium 20 mg 20 mg PO .@NOON 09/21/25 09/21/25 09/19/25 History capsule,delayed release (Nexium 24HR) metoprolol tartrate 50 mg tablet 75 mg PO BID 09/21/25 09/21/25 3 Weeks Ago History ~08/31/25 Allergies Allergy/AdvReac Type Severity Reaction Status Date / Time ciprofloxacin Allergy ALGY-Swell Verified 01/18/25 13:22 Lip/Tongue/Throat amlodipine AdvReac edema Verified 01/18/25 13:22 PFSH Acute PFSH: Medical History Benign essential HTN Atrial fibrillation and flutter Patient apparently has a history of atrial flutter and fibrillation. He had an event monitor in 2021 and was found to have no recurrence of fibrillation or flutter. He is off the oral anticoagulant at this time. CVA, old, cognitive deficits Lymphadenopathy Abdominal, followed by hematology/oncology Carotid artery disease HTN (hypertension), benign GERD (gastroesophageal reflux disease) Glaucoma Hypertension Surgical History Status post right inguinal hernia repair (09/21/20) Status post colonoscopy (09/16/20) H/O esophagogastroduodenoscopy (09/16/20) H/O splenectomy H/O left inguinal hernia repair H/O circumcision Family History Other Cancer Denies family history of Diabetes CAD (coronary artery disease) Anesthesia complication Bleeding disorder Social History Smoking and tobacco/nicotine status: never used tobacco/nicotine Alcohol intake: never Substance/Drug Use: never Household members: spouse Marital status: Current occupational status: retired Data 09/21/25 00:21 09/21/25 00:21 A&P Assessment and plan 1. Atrial fibrillation and flutter: 2. Benign essential HTN: 3. History of CVA (cerebrovascular accident): 4. Community acquired bacterial pneumonia: Plan: Remains in sinus rhythm. Blood pressure soft. Continue amiodarone infusion. Echocardiogram read by Dr Wilson, currently favoring small thrombus rather than vegetation given lack of septic presentation. If required based on clinical course, this may be further evaluated with YAMIL. Treatment of pneumonia per hospitalist service. I saw Mr. Shelton in ICU, 89 years old male with significant underlying medical comorbidities, admitted with atrial fibrillation with rapid ventricular rate, almost in cardiogenic shock state, converted successfully to sinus rhythm in the ER. Clinically he remains much stable afterwards although requiring low-dose of inotropic support to maintain blood pressure. He is in sinus rhythm since. The moderately elevated troponins are secondary to current clinical scenario in the setting of significant underlying renal impairment. There does not appear to be acute myocardial infarction at this admission. The reduced LVEF with regional wall motion abnormalities compared to echo in January of this year indicative of myocardial infarction at some point during these months. The small size mobile echogenic mass over the aortic valve likely to be a thrombotic strand rather than a vegetation given the current clinical scenario. I reviewed his current medication including amiodarone infusion as well as anticoagulation with heparin IV. Plan to continue on current management without any change at this point. PDMP PDMP Reviewed: Not Reviewed Coding Level of Care Code Acute Code for g Fwd Diagnoses Atrial fibrillation and flutter I48.91; I48.92 Benign essential HTN I10 History of CVA (cerebrovascular accident) Z86.73 Community acquired bacterial pneumonia J15.9
--- NOTE | 2025-09-21 08:59 | PC.PHAR ---
states pcp put all blood pressure medications on hold temporarily until they figure out what is making pt fall. Amlodipine is on pts' allergy list but it just makes his feet swell.
--- NOTE | 2025-09-21 09:06 | ECG_ITS ---
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 Measurements Intervals [place] Rate: 71 P: 19 WA: 155 QRS: -32 QRSD: 178 T: 150 QT: 418 QTc: 457 Interpretive Statements SINUS RHYTHM WITH OCCASIONAL SUPRAVENTRICULAR PREMATURE COMPLEXES INTRAVENTRICULAR CONDUCTION DELAY [130+ ms QRS DURATION] POSSIBLE ACCESORY PATHWAY(WPW) Compared to ECG 09/21/2025 04:28:04 No significant changes Electronically Signed On 09-25-2025 18:04:37 PULP COOKER by Dangelo Anderson M.D. [email or web address]
[2025-09-21] MEDS: norepinephrine 4 MG/250 ML BAG 7.5 MG IV (09:22)
--- NOTE | 2025-09-21 10:00 | PC.NURSE ---
Heparin drip adjusted per new protocol with pharmacy at bedside.
[2025-09-21 11:04] LABS: Troponin 5 6HR 83.79 ng/L (0-15); Troponin 5 6HR Delta 1.79 ng/L (0-12)
[2025-09-21 11:07] LABS: Partial Thromboplastin Time 111.4 SECONDS (23.9-36.7)
--- NOTE | 2025-09-21 14:29 | P.PN_ITS ---
Vitals/I&O/Wt Last Vital Signs Temp 98.2 F 09/21/25 12:00 Pulse 80 09/21/25 14:00 Resp 29 H 09/21/25 14:00 BP 117/54 09/21/25 14:00 Pulse Ox 98 09/21/25 14:00 O2 Del Method Nasal Cannula 09/21/25 14:00 O2 Flow Rate 2 09/21/25 14:00 FiO2 2 09/21/25 05:45 09/20/25 09/21/25 09/21/25 22:59 06:59 14:59 Intake Total 643.573 / 643.573 690.595 / 690.595 Balance 643.573 / 643.573 690.595 / 690.595 Weight last 48 hrs Weight 70.307 kg Weight 70.307 kg Weight 72.121 kg Weight 79.379 kg Physical Exam 2 Const: COMMON NORMALS: patient oriented x3 and alert GENERAL APPEARANCE: c ooperative ORIENTATION/CONSCIOUSNESS: Yes awake HENMT: COMMON NORMALS: oropharynx normal Neck/C-Spine: COMMON NORMALS: no JVD Resp: COMMON NORMALS: normal respiratory effort and clear to auscultation bilaterally AUSCULTATION: clear to auscultation bilaterally Cardio: COMMON NORMALS: no JVD, regular rhythm, S1 normal heart sound present, S2 normal heart sound present and No murmurs present (Cardio) RHYTHM: regular rhythm HEART SOUNDS: S1 normal heart sound present and S2 normal heart sound present GI: COMMON NORMALS: Normal to inspection, nondistended, normoactive bowel sounds present, Soft to palpation and non-tender PALPATION: Yes Soft to palpation Extremity: COMMON NORMALS: no joint enlargement and no pedal edema Neuro: COMMON NORMALS: patient oriented x3 and moves all extremities S ENSORIUM/ORIENTATION: Yes alert Skin: COMMON NORMALS: no rashes or lesions noted NARRATIVE SKIN EXAM: Without splinter hemorrhages. Right thumb fingernail with what appears to be a nevus which she reports is chronic, will benefit from follow-up with dermatology. GENERAL SKIN EXAM: no rashes or lesions noted Data 09/21/25 00:21 09/21/25 00:21 Micro: Microbiology 09/21/25 01:32 Blood Culture - Preliminary Blood SPECIMEN COLLECTED 09/21/25 00:21 Blood Culture - Preliminary Blood SPECIMEN COLLECTED A&P Assessment and plan 1. Atrial fibrillation with RVR: Overnight converted to sinus rhythm. Complete loading with amiodarone infusion, and will transition to oral Amio. Continues to have requirement for pressor after initially weaning off. At this time not a candidate for resumption of metoprolol or calcium channel mitchell. Has been resumed on aspirin 325 mg. Discussed with cardiology. - In the ED, did not achieve rate control or conversion to NSR after diltiazem administration - Patient became hypotensive while amiodarone. ED physician made decision to cardiovert which restored sinus rhythm. However, patient became bradycardic and hypotension worsened leading to cardiogenic shock - Provided with dopamine and levophed with improvement of HR and BP. Will have patient transferred to ICU for further management. Patient is a DNR, confirmed with spouse this evening - Will also have patient placed on heparin infusion - Etiology likely due to his pneumonia and missing doses of his prescribed medications - STAT echo ordered and shows possible vegetation. 1Gm Vanc ordered. 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 Appreciate consultation. Consideration of likely thrombotic mass with calcification versus vegetation, although per discussion visualization difficult to distinguish, but clinically otherwise behaving less like bacterial vegetation. Has not had any recurrent fevers which he himself also denies preadmission. Monitor vitals for any fever. Otherwise do not see signs of embolic disease, there is a small nevus on the right thumb which he states has been chronic. Will benefit from follow-up with dermatology. Follow-up blood cultures for any growth. Without evidence of endocarditis, after discharge would benefit from follow-up of the mass with TTE. 3. Shock: Continues to have pressor requirement, up to 8 mcg Levophed. Initially weaned off, but still ongoing requirement. Possible combination, including component of cardiogenic shock, with acute decline in ejection fraction down to about 45%, valvular heart disease. Cannot exclude obstructive shock with noted need for oxygen, as well as presentation with A-fib with RVR, cannot exclude PE at current time. Continue anticoagulation. Appears to be less likely septic shock as he has been afebrile, without leukocytosis, without obvious signs of infection. Questionable pneumonia on chest x-ray. With pleural effusions, discussed with radiologist, he has been on heparin drip but also on aspirin 325 mg. Will obtain ultrasound, hold aspirin for now, may temporarily hold anticoagulation for thoracentesis. Assess if enough fluid for sample. For now continue empiric antibiotics although infectious suspected less likely. 4. Cardiomyopathy: New decrease in EF down to 45%. 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 Troponin series with moderate elevation, without significant up or downtrend. Reviewed echocardiogram, discussed with cardiology. Appreciate consultation. 5. Cardiogenic shock: 6. Community acquired bacterial pneumonia: - Possible, for now empirically continue Rocephin and Azithromycin 7. Acute hypoxic respiratory failure: - PRN o2 to maintain O2 saturations above 92%. DNI. 8. CVA, old, cognitive deficits: - Plan as above 9. Weakness: Plan: DEEPAK on CKD: Mild DEEPAK, creatinine up to 1.8. Possibly related secondary to shock. Will obtain kidney ultrasound. Monitor intake and output. 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 Would benefit from assessment with dermatology. PDMP PDMP Reviewed: Not Reviewed Attestations 2 Medical Necessity Statement*: Continue admission for assessment management of shock, acute cardiomyopathy, further assessment of aortic valve mass, hypoxia, possible pneumonia, deposition of control of atrial fibrillation. Coding Level of Care Code Critical Care >/= 30 minutes Critical care time (in minutes): 35 The high probability of a clinically significant, sudden or life threatening deterioration, as referenced in this documentation, required my full and direct attention, intervention and personal management. The critical care time shown is in addition to time spent performing any reported separately billable procedures and includes the following: [x] Data and vital sign review and interpretation [x ] Patient assessment, examination and intervention [x] Medication orders and management [x] Patient/Family updates as able [x] Care Coordination and Documentation. Diagnoses Atrial fibrillation with RVR I48.91 Aortic valve mass I35.8 Shock R57.9 Cardiomyopathy I42.9 Cardiogenic shock R57.0 Community acquired bacterial pneumonia J15.9 Acute hypoxic respiratory failure J96.01 CVA, old, cognitive deficits I69.319 Weakness R53.1
--- NOTE | 2025-09-21 14:45 | US_ITS ---
WS: [id number] INDICATION: Pleural effusions TECHNIQUE: Ultrasound chest FINDINGS: Moderate bilateral pleural effusions with compressive atelectasis in the lung bases. Either side could probably be accessed for ultrasound thoracentesis if desired US/US chest [id number] IMPRESSION: Moderate bilateral pleural effusions with compressive atelectasis in the lung bases.
--- NOTE | 2025-09-21 15:04 | USR_ITS ---
PROCEDURE INFORMATION: Exam: US Retroperitoneal, Complete, Kidneys, Aorta, IVC. Exam date and time: 09/21/2025 4:21 PM Age: 89 years old Clinical indication: Condition or disease; Other: Aneesh TECHNIQUE: Imaging protocol: Real-time ultrasound of the retroperitoneum with image documentation. Complete exam focused on the bilateral kidneys, aorta, and inferior vena cava. COMPARISON: CT abdomen pelvis w con* [id number] 08/05/2020 9:41 AM FINDINGS: Right kidney: Right kidney measures 10.1 cm in greatest length. Mild cortical thinning and slight increased echotexture of the renal cortex. No hydronephrosis. Probable 1.9 cm cyst within the upper pole of the right kidney. Peripheral margin is not well evaluated. No solid suspicious renal mass. No large renal calculi. Vascular flow is documented at the right renal hilum. No perinephric fluid collection. Left kidney: Left kidney could not be visualized. Aorta: Visualized portion of the abdominal aorta is normal in caliber. Common iliac arteries: Not imaged on this exam. Inferior vena cava: Not imaged on this exam. Urinary bladder: The bladder is near completely decompressed which limits evaluation. Quigley catheter is in place within the bladder. US/US renal BI* [id number] IMPRESSION: 1. Right kidney demonstrates mild cortical thinning and slight increased echotexture. No hydronephrosis. Probable 1.9 cm cyst within the upper pole of the right kidney. Peripheral margin is not well evaluated sonographically. No perinephric fluid collection. 2. Left kidney could not be visualized or assessed on this exam. 3. Bladder is decompressed. Quigley catheter in place within the bladder.
--- NOTE | 2025-09-21 15:58 | PHA.VACGOAL ---
Vancomycin Goal - Goal Vancomycin Goal:: 15-20 mg/L Vancomycin Indication:: Pneumonia - Therapy Day of therpy:: Day []of [] . Actual body weight (kg): 70.307 kg - Data Labs: WBC 9.00 10^3/uL (3.29-11.43) 09/21/25 00:21 RBC 3.99 10^6/uL (3.85-5.65) 09/21/25 00:21 Hgb 12.90 g/dL (11.27-16.99) 09/21/25 00:21 Hct 39.5 % (37-53) 09/21/25 00:21 MCV 99.0 fl (82-101) 09/21/25 00: MCH 32.3 pg (27-33) 09/21/25 00: MCHC 32.7 g/dL (30-55) 09/21/25 00: RDW 18.7 % (12.1-15.1) H 09/21/25 00:21 Sodium 142 mmol/L (136-145) 09/21/25 00: Potassium 4.9 mmol/L (3.5-5.1) 09/21/25 00:21 Chloride 109 mmol/L (98-107) H 09/21/25 00:21 Carbon Dioxide 24 mmol/L (22-29) 09/21/25 00:21 Anion Gap 13.9 (5-19) 09/21/25 00:21 BUN 47 mg/dL (8-23) H 09/21/25 00:21 Creatinine 1.8 mg/dL (0.7-1.2) H 09/21/25 00:21 GFR Calculation Not Reportable 09/21/25 00:21 Treatment plan:: new consult Regimen:: 1000 MG Q24H
--- NOTE | 2025-09-21 17:39 | PC.NURSE ---
Notified Dr. Wan of bloody urine with only 250mL urine output for 12 hour shift. Order given to bladder scan. Notified Dr. Wan that only 4mL urine noted in bladder.
[2025-09-21 18:08] LABS: Partial Thromboplastin Time 83.4 SECONDS (23.9-36.7)
[2025-09-22] VITALS (87 sets, daily range): BP systolic 91–140; BP diastolic 44–112; PULSE 65–87; RESP 16–34; TEMP 36.6–37.2; O2SAT 85–100
[2025-09-22] MEDS: AMIODARONE HCL/D5W 900 MG/500 ML BAG 16.67 MG IV (01:06)
[2025-09-22 01:23] LABS: Partial Thromboplastin Time 66.3 SECONDS (23.9-36.7)
[2025-09-22] MEDS: cefTRIAXone 1,000 mg SDV 1000 MG IVP (02:11)
[2025-09-22] MEDS: norepinephrine 4 MG/250 ML BAG 30 MG IV (02:22)
[2025-09-22 06:35] LABS: Hematocrit 33.5 % (37-53); Hemoglobin 11.00 g/dL (11.27-16.99); Mean Corpuscular HGB Conc 32.8 g/dL (30-55); Mean Corpuscular Hemoglobin 32.7 pg (27-33); Mean Corpuscular Volume 99.7 fl (82-101); Nucleated Red Blood Cells % 0 %; Platelet Count 163 10^3/cmm (157-399); Red Blood Count 3.36 10^6/uL (3.85-5.65); White Blood Count 10.61 10^3/uL (3.29-11.43)
[2025-09-22 06:53] LABS: Partial Thromboplastin Time 78.4 SECONDS (23.9-36.7)
[2025-09-22 07:09] LABS: Alanine Aminotransferase 22 U/L (0-41); Albumin Level 2.6 g/dL (3.5-5.2); Alkaline Phosphatase 148 U/L (40-130); Anion Gap 13.3 (5-19); Aspartate Amino Transferase 20 U/L (0-40); Blood Urea Nitrogen 70 mg/dL (8-23); Calcium 8.1 mg/dL (8.5-10.5); Carbon Dioxide 22 mmol/L (22-29); Chloride 109 mmol/L (98-107); Globulin 4.0 g/dL (1.3-4.6); Glucose 125 mg/dL (65-115); Osmolality Calculated 310 mOsm/kg (285-295); Potassium 5.3 mmol/L (3.5-5.1); Sodium 139 mmol/L (136-145); Total Protein 6.6 g/dL (6.6-8.7)
--- NOTE | 2025-09-22 08:08 | US_ITS ---
WS: [id number] ULTRASOUND-GUIDED THORACENTESIS CLINICAL INFORMATION: pl effusion PROCEDURE: Informed consent: The risks, benefits, and alternatives of the procedure were discussed with the patient's . Verbal and written consent was obtained. Timeout: A timeout was performed to confirm the correct patient, procedure, and site. Site: RIGHT Preparation: A suitable skin site was identified. The patient was prepped and draped in usual sterile fashion. Lidocaine 1% was used for local anesthesia. Catheter: 4 Pashto One-Step catheter. Fluid Volume: 1000 ml Color: Clear yellow Discarded safely. Sent to the laboratory for analysis. Complications: No pneumothorax on the post thoracentesis radiograph US/ thoracentesis [id number] IMPRESSION: Uncomplicated ultrasound-guided RIGHT chest thoracentesis.
[2025-09-22] MEDS: cosyntropin 0.25 mg SDV IVP (08:18)
--- NOTE | 2025-09-22 08:32 | P.PN_ITS ---
Documented by User: KATHY Gallagher 09/22/25 09:59 Subjective 2 Subjective: He has thoracentesis planned for today. Seems to have some dysphagia, speech evaluation ordered. Continue IV amiodarone until swallow evaluation is complete. Remains in sinus rhythm. Renal function decreased today, procalcitonin pending. Vitals/I&O/Wt Last Vital Signs Temp 98.5 F 09/22/25 07:45 Pulse 83 09/22/25 07:45 Resp 27 H 09/22/25 07:45 BP 124/70 09/22/25 07:45 Pulse Ox 100 09/22/25 07:45 O2 Del Method Nasal Cannula 09/22/25 07:45 O2 Flow Rate 4.5 09/22/25 07:45 FiO2 2 09/21/25 05:45 09/21/25 09/22/25 09/22/25 22:59 06:59 14:59 Intake Total 757.236 / 2456.978 1009.147 / 2456.978 157.677 / 157.677 Output Total 250 / 650 400 / 650 Balance 507.236 / 1806.978 609.147 / 1806.978 157.677 / 157.677 Weight last 48 hrs Weight 151 lb Weight 155 lb Weight 155 lb Weight 159 lb Weight 175 lb Physical Exam 2 Const: COMMON NORMALS: no acute distress and patient oriented x3 GENERAL APPEARANCE: cooperative and comfortable ORIENTATION/CONSCIOUSNESS: Yes awake, Yes oriented to person, Yes oriented to place and Yes oriented to time Chest: COMMONS NORMALS: normal inspection of the chest and normal palpation of entire chest wall CHEST: Yes Symmetrical chest wall rise Resp: COMMON NORMALS: normal respiratory effort, No retractions and No use of accessory muscles EFFORT & INSPECTION: Yes symmetric chest movement A USCULTATION: rhonchi left upper and left lower and diminished lung sounds on the right Cardio: COMMON NORMALS: regular rate, regular rhythm, S1 normal heart sound present, S2 normal heart sound present, No gallops present (Cardio), No clicks present (Cardio), No murmurs present (Cardio) and No rub (Cardio) RATE: r egular rate RHYTHM: regular rhythm HEART SOUNDS: S1 normal heart sound present and S2 normal heart sound present PERIPHERAL PULSES: radial pulses present Extremity: COMMON NORMALS: no pedal edema Neuro: COMMON NORMALS: patient oriented x3 and moves all extremities S ENSORIUM/ORIENTATION: Yes oriented to person, Yes oriented to place and Yes oriented to time Data 09/22/25 06:25 09/22/25 06:25 Micro: Microbiology 09/21/25 01:32 Blood Culture - Preliminary Blood NEGATIVE TO DATE 09/21/25 00:21 Blood Culture - Preliminary Blood NEGATIVE TO DATE A&P Assessment and plan 1. Atrial fibrillation and flutter: 2. Aortic valve mass: 3. Cardiomyopathy: 4. Shock: 5. Benign essential HTN: 6. History of CVA (cerebrovascular accident): 7. Community acquired bacterial pneumonia: Plan: Pleural effusions both moderate by ultrasound yesterday, thoracentesis planned today. Heparin currently on hold for procedure. Could consider Eliquis, however with frequent falls may be too high risk. He was not anticoagulated prior to admission, just full strength aspirin. No known episodes of atrial fibrillation since 2020, until admitted here with pneumonia. Continue amiodarone IV, can switch to oral amiodarone if aspiration risk is low. Treated with antibiotic therapy for pneumonia. Blood pressure was hypotensive, required levophed yesterday evening, weaning this morning. PDMP PDMP Reviewed: Not Reviewed Attestations 2 Medical Necessity Statement*: pneumonia, atrial fibrillation Coding Level of Care Code Acute Code for [facility] Diagnoses Atrial fibrillation and flutter I48.91; I48.92 Aortic valve mass I35.8 Cardiomyopathy I42.9 Shock R57.9 Benign essential HTN I10 History of CVA (cerebrovascular accident) Z86.73 Community acquired bacterial pneumonia J15.9 Documented by User: Suleiman Wilson MD 09/22/25 17:33 Data 09/22/25 06:25 09/22/25 06:25 A&P Assessment and plan 1. Atrial fibrillation and flutter: 2. Aortic valve mass: 3. Cardiomyopathy: 4. Shock: 5. Benign essential HTN: 6. History of CVA (cerebrovascular accident): 7. Community acquired bacterial pneumonia: Plan: Pleural effusions both moderate by ultrasound yesterday, thoracentesis planned today. Heparin currently on hold for procedure. Could consider Eliquis, however with frequent falls may be too high risk. He was not anticoagulated prior to admission, just full strength aspirin. No known episodes of atrial fibrillation since 2020, until admitted here with pneumonia. Continue amiodarone IV, can switch to oral amiodarone if aspiration risk is low. Treated with antibiotic therapy for pneumonia. Blood pressure was hypotensive, required levophed yesterday evening, weaning this morning. I saw pt, reviewed progress/events overnight. Pt now weaned off Levophed,,maintaining BP. More alert, and less SOA after thoracentesis. Remained in NSR..HR 80-90s on IV Amiodarone. Rec: 1. Switch IV amiodarone to oral 200 mg OD 2. Pt at home was on good dose of Metoprolol, restart metoprolol at lower dose 25 mg BID 3. Considering Hb trending low, recommend to DC IV heparin infusion, and for only prophylaxis. 4. ?? for YAMIL if clinically infective endocarditis suspicious remains high. PDMP PDMP Reviewed: Not Reviewed Coding Level of Care Code Acute Code for [facility] Diagnoses Atrial fibrillation and flutter I48.91; I48.92 Aortic valve mass I35.8 Cardiomyopathy I42.9 Shock R57.9 Benign essential HTN I10 History of CVA (cerebrovascular accident) Z86.73 Community acquired bacterial pneumonia J15.9
[2025-09-22 09:10] LABS: Cosyntropin Baseline 16.33 mcg/dL
[2025-09-22 09:18] LABS: INR 1.10 (0.8-1.2); Prothrombin Time 15.00 SECONDS (12.1-14.9)
[2025-09-22 09:32] LABS: Cosyntropin 30 Minute 26.61 mcg/dL
[2025-09-22 10:08] LABS: Cosyntropin 1 Hour 30.86 mcg/dL
--- NOTE | 2025-09-22 10:49 | PC.NURSE ---
Heparin drip was paused due to future procedure per radiology.
[2025-09-22 11:50] LABS: Partial Thromboplastin Time 30.0 SECONDS (23.9-36.7)
--- NOTE | 2025-09-22 14:52 | XRR_ITS ---
PROCEDURE INFORMATION: Exam: XR Chest Exam date and time: 09/22/2025 3:57 PM Age: 89 years old Clinical indication: Injury or trauma; Other: Unknown; Other: Thoracentesis; Additional info: Post thoracentesis TECHNIQUE: Imaging protocol: Radiologic exam of the chest. Views: 1 view. COMPARISON: 1. CT chest w con* [id number] 01/05/2022 10:37 AM 2. CR XR chest 1V portable [id number] 09/21/2025 12:21 AM FINDINGS: Lungs: Persistent central vascular fullness and mild interstitial prominence. Findings may correspond to underlying interstitial lung change or minimal interstitial edema. No overt CHF. Persistent peripheral airspace opacity and slight distortion within the left mid lung which may correspond to an area of postinflammatory change or scarring. Persistent asymmetric area of increased density at the left lung base may correspond to atelectatic change or pneumonia. Improved aeration of the right lung base. Pleural spaces: No postprocedure pneumothorax. Persistent blunting of the left costophrenic angle and increased density of the left lung base may correspond to residual pleural effusion. Slight decrease in size of previously seen small right pleural effusion. No large pleural effusion on the right. Heart/Mediastinum: Borderline cardiomegaly. Evaluation of heart size is limited. Vasculature: Atherosclerotic plaque of the aortic arch. Bones/joints: Multilevel degenerative changes are present throughout the spine. Arthritic changes are present at the right and left glenohumeral joint. Other findings: Examination is limited by patient positioning. XR/XR chest 1V portable [id number] IMPRESSION: No postprocedure pneumothorax. Probable persisting small left pleural effusion. Increased density at the left lung base may correspond to pneumonia or atelectatic change. Peripheral area of increased density and slight distortion within the left mid lung more suggestive of postinflammatory change and scarring. No large pleural effusion on the right.
[2025-09-22 15:36] LABS: Hematocrit Body Fluid 0.0 %
--- NOTE | 2025-09-22 16:12 | PC.NURSE ---
Dr. Wan ordered to restart heparin drip at 2100 at the same rate.
[2025-09-22 16:34] LABS: Color, Body Fluid PALE YELLOW
[2025-09-22 16:38] LABS: Apprearance, Body Fluid CLOUDY; PATH Referral YES
[2025-09-22 16:44] LABS: Body Fluid Polynuclear #Cells 0.420; Monocytes # Body Fluid 0.387; Mononuclear WBC Body Fluid % 48.000 %; Polynuclear WBC Body Fluid % 52.000 %
[2025-09-22 17:01] LABS: Fluid Laterality Pleural Fluid
[2025-09-22 17:04] LABS: Cyto Order Verification Order Verified
--- NOTE | 2025-09-22 20:14 | P.PN_ITS ---
Vitals/I&O/Wt Last Vital Signs Temp 97.8 F 09/22/25 19:45 Pulse 74 09/22/25 19:45 Resp 25 H 09/22/25 19:45 BP 91/48 09/22/25 19:45 Pulse Ox 98 09/22/25 19:45 O2 Del Method Room Air 09/22/25 19:45 O2 Flow Rate 2 09/22/25 14:00 FiO2 2 09/21/25 05:45 09/22/25 09/22/25 09/22/25 06:59 14:59 22:59 Intake Total 1009.147 / 2456.978 528.177 / 528.177 433.75 / 961.927 Output Total 400 / 650 625 / 625 Balance 609.147 / 1806.978 528.177 / 528.177 -191.25 / 336.927 Weight last 48 hrs Weight 68.492 kg Weight 70.307 kg Weight 70.307 kg Weight 72.121 kg Weight 79.379 kg Physical Exam 2 Const: COMMON NORMALS: patient oriented x3 and alert GENERAL APPEARANCE: c ooperative ORIENTATION/CONSCIOUSNESS: Yes awake HENMT: COMMON NORMALS: oropharynx normal Neck/C-Spine: COMMON NORMALS: no JVD Resp: COMMON NORMALS: normal respiratory effort and clear to auscultation bilaterally AUSCULTATION: clear to auscultation bilaterally Cardio: COMMON NORMALS: no JVD, regular rhythm, S1 normal heart sound present, S2 normal heart sound present and No murmurs present (Cardio) RHYTHM: regular rhythm HEART SOUNDS: S1 normal heart sound present and S2 normal heart sound present GI: COMMON NORMALS: Normal to inspection, nondistended, normoactive bowel sounds present, Soft to palpation and non-tender PALPATION: Yes Soft to palpation Extremity: COMMON NORMALS: no joint enlargement and no pedal edema Neuro: COMMON NORMALS: patient oriented x3 and moves all extremities S ENSORIUM/ORIENTATION: Yes alert Skin: COMMON NORMALS: no rashes or lesions noted NARRATIVE SKIN EXAM: Without splinter hemorrhages. Right thumb fingernail with what appears to be a nevus which she reports is chronic, will benefit from follow-up with dermatology. GENERAL SKIN EXAM: no rashes or lesions noted Data 09/22/25 06:25 09/22/25 06:25 Micro: Microbiology 09/21/25 01:32 Blood Culture - Preliminary Blood NEGATIVE TO DATE 09/21/25 00:21 Blood Culture - Preliminary Blood NEGATIVE TO DATE A&P Assessment and plan 1. Shock: Continue to require pressor overnight, 8 mcg Levophed. This morning add midodrine 5 mg 3 times daily. Obtain cosyntropin stimulation test. Continue attempting to wean Levophed. Weaned off pressor during the day. Monitor blood pressures after thoracentesis. Risk of hypotension. Continues to have pressor requirement, up to 8 mcg Levophed. Initially weaned off, but still ongoing requirement. Possible combination, including component of cardiogenic shock, with acute decline in ejection fraction down to about 45%, valvular heart disease. Cannot exclude obstructive shock with noted need for oxygen, as well as presentation with A-fib with RVR, cannot exclude PE at current time. Continue anticoagulation. Appears to be less likely septic shock as he has been afebrile, without leukocytosis, without obvious signs of infection. Questionable pneumonia on chest x-ray. With pleural effusions, discussed with radiologist, he has been on heparin drip but also on aspirin 325 mg. Will obtain ultrasound, hold aspirin for now, may temporarily hold anticoagulation for thoracentesis. Assess if enough fluid for sample. For now continue empiric antibiotics although infectious suspected less likely. 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 Discussed with patient's son. Remains afebrile. Without leukocytosis. Follow-up blood cultures, so far remaining negative on review. Noted about 0.8 cm aortic valve mass on discussion with cardiology on review of TTE. Appreciate consultation. Consideration of likely thrombotic mass with calcification versus vegetation, although per discussion visualization difficult to distinguish, but clinically otherwise behaving less like bacterial vegetation. Has not had any recurrent fevers which he himself also denies preadmission. Monitor vitals for any fever. Otherwise do not see signs of embolic disease, there is a small nevus on the right thumb which he states has been chronic. Will benefit from follow-up with dermatology. Follow-up blood cultures for any growth. Without evidence of endocarditis, after discharge would benefit from follow-up of the mass with TTE. 3. Acute kidney injury superimposed on CKD: Creatinine up to 2.2 on review. Reviewed intake output. Bladder scan has been obtained. Not retaining urine. Reviewed kidney ultrasound. Stop vancomycin. Follow-up chemistry. Noted mild hyperkalemia, potassium 5.3. Change diet to low potassium. 4. Atrial fibrillation with RVR: Discussed with cardiology, transition to oral amiodarone, discontinue drip. Continue to monitor on telemetry. Discussed heparin drip with cardiology, hemoglobin with some decline, will hold further heparin drip for now. Subcutaneous prophylactic heparin started instead for now. Resume aspirin. 5. Cardiomyopathy: New decrease in EF down to 45%. 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 Troponin series with moderate elevation, without significant up or downtrend. Reviewed echocardiogram, discussed with cardiology. Appreciate consultation. No plan for coronary angiography at this time, consideration possibly at a later date. 6. Cardiogenic shock: 7. Community acquired bacterial pneumonia: - Possible, for now empirically continue Rocephin and Azithromycin Heparin held, aspirin held, underwent thoracentesis with drainage of a liter of clear yellow fluid. Reviewed chest x-ray, no pneumothorax. Incidentally noted peripheral area of increased density and a slight distortion within the left midlung more suggestive of postinflammatory change and scarring. Noted choking on food and drink, suspect speech therapy, changed to dysphagia diet. Discussed with ST, appreciate recommendations 8. Acute hypoxic respiratory failure: - PRN o2 to maintain O2 saturations above 92%. DNI. 9. CVA, old, cognitive deficits: - Plan as above 10. Weakness: Plan: Moderate to severe MR: Noted on echocardiography will benefit from follow- up Right thumb nailbed nevus -reports chronic. Would benefit from assessment with dermatology. PDMP PDMP Reviewed: Not Reviewed Attestations 2 Medical Necessity Statement*: Continue admission for assessment and management of improving/resolving shock, with assessment of aortic valve mass, follow-up cultures, further optimization of dysphagia. Coding Level of Care Code Critical Care >/= 30 minutes Critical care time (in minutes): 35 The high probability of a clinically significant, sudden or life threatening deterioration, as referenced in this documentation, required my full and direct attention, intervention and personal management. The critical care time shown is in addition to time spent performing any reported separately billable procedures and includes the following: [x] Data and vital sign review and interpretation [x ] Patient assessment, examination and intervention [x] Medication orders and management [x] Patient/Family updates as able [x] Care Coordination and Documentation. 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
--- NOTE | 2025-09-22 22:00 | PC.NURSE ---
PO Amiodarone Amiodarone drip discontinued with a first scheduled PO amio dose for 0500. Dr. Loving contacted; order received to change first PO amiodarone dose time to now.
[2025-09-22 23:06] LABS: MRSA PCR OZH (swab) NOT DETECTED (Negative)
[2025-09-23] VITALS (95 sets, daily range): BP systolic 89–156; BP diastolic 44–116; PULSE 66–115; RESP 10–37; TEMP 36.4–37.1; O2SAT 88–100
--- NOTE | 2025-09-23 00:31 | PC.NURSE ---
Melatonin Patient stating he is not able to rest and requesting something to help. Dr. Loving contacted and confusion discussed; order received for 3 mg melatonin PO once.
[2025-09-23] MEDS: MELATONIN 3 MG TABLET PO (00:42)
--- NOTE | 2025-09-23 01:31 | PC.NURSE ---
NPO Melatonin PO administered with pudding. Following administration, patient had a wet vocal quality in addition to a wet cough. Dr. Loving notified; order received to make patient NPO until speech evaluation can be completed.
[2025-09-23] MEDS: cefTRIAXone 1,000 mg SDV 1000 MG IVP (02:13)
[2025-09-23 03:30] LABS: Hematocrit 28.1 % (37-53); Hemoglobin 9.40 g/dL (11.27-16.99); Mean Corpuscular HGB Conc 33.5 g/dL (30-55); Mean Corpuscular Hemoglobin 33.1 pg (27-33); Mean Corpuscular Volume 98.9 fl (82-101); Nucleated Red Blood Cells % 0 %; Platelet Count 148 10^3/cmm (157-399); Red Blood Count 2.84 10^6/uL (3.85-5.65); White Blood Count 10.59 10^3/uL (3.29-11.43)
[2025-09-23 03:53] LABS: Alanine Aminotransferase 21 U/L (0-41); Albumin Level 2.4 g/dL (3.5-5.2); Alkaline Phosphatase 130 U/L (40-130); Anion Gap 14.8 (5-19); Aspartate Amino Transferase 20 U/L (0-40); Blood Urea Nitrogen 68 mg/dL (8-23); Calcium 8.0 mg/dL (8.5-10.5); Carbon Dioxide 20 mmol/L (22-29); Chloride 111 mmol/L (98-107); Creatinine Clr Calc Pharmacy 25.7100; Globulin 3.2 g/dL (1.3-4.6); Glucose 112 mg/dL (65-115); Osmolality Calculated 313 mOsm/kg (285-295); Potassium 4.8 mmol/L (3.5-5.1); Sodium 141 mmol/L (136-145); Total Protein 5.6 g/dL (6.6-8.7)
[2025-09-23] MEDS: heparin 5,000 unit/mL INJ 1 mL 5000 UNIT SUBCUT ×3 (04:24→20:07)
--- NOTE | 2025-09-23 12:49 | P.PN_ITS ---
Subjective 2 Subjective: Feeling better today. Denies CP, palpitations. Breathing ok Vitals/I&O/Wt Last Vital Signs Temp 98.7 F 09/23/25 07:45 Pulse 67 09/23/25 10:00 Resp 22 H 09/23/25 10:00 BP 106/54 09/23/25 10:00 Pulse Ox 99 09/23/25 10:00 O2 Del Method Nasal Cannula 09/23/25 10:00 O2 Flow Rate 2 09/23/25 10:00 FiO2 2 09/21/25 05:45 09/22/25 09/23/25 09/23/25 22:59 06:59 14:59 Intake Total 433.75 / 961.927 490.882 / 1452.809 Output Total 625 / 625 600 / 1225 Balance -191.25 / 336.927 -109.118 / 227.809 Weight last 48 hrs Weight 162 lb Weight 151 lb Physical Exam 2 Narrative: General: In no acute distress Neck: No jugular venous distention or carotid bruits Heart: Normal S1 and S2 with a regular rate and rhythm Lungs: Normal respiratory effort with no use of intercostal muscles, clear lungs sounds to auscultation Extremities: No lower extremity edema Neuro: Alert and oriented x 3 Urinary Catheter Management: Quigley: Cath Placed During This Visit: no Reason for Continuing Indwelling Catheter: Accurate Measurement of Urinary Output in Critically Ill Patients Data 09/23/25 03:20 09/23/25 03:20 Micro: Microbiology 09/22/25 15:09 Gram Stain - Final Pleural Fluid Body Fluid Culture - Preliminary A&P Assessment and plan 1. Atrial fibrillation and flutter: 2. Aortic valve mass: 3. Cardiomyopathy: Mildly reduced EF, EF 45% 4. Shock: 5. Benign essential HTN: 6. History of CVA (cerebrovascular accident): 7. Community acquired bacterial pneumonia: Plan: - cardiovascularly stable at this time. - Off Levophed and remains in NSR - not a good anticoagulation candidate due to fall risk - I will personally review the echocardiogram. If structure on aortic valve resembles a Lamble's excresence I would not pursue a YAMIL. Also, patient just becoming more hemodynamically stable today, and would not erickson into a YAMIL that requires sedation since only recenlty able to wean off the Levophed. - Continue with amio 200mg daily, midodrine and aspirin -will reeval patient again in am PDMP PDMP Reviewed: Not Reviewed Attestations 2 Medical Necessity Statement*: needs 2 more midnights in hospital for sepsis. 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
--- NOTE | 2025-09-23 14:26 | P.PN_ITS ---
Subjective 2 Subjective: He was still choking up again on thin liquids this morning. He feels that he woke up somewhat confused, did not know anybody and did not know where he was initially. Vitals/I&O/Wt Last Vital Signs Temp 98.7 F 09/23/25 07:45 Pulse 75 09/23/25 14:00 Resp 27 H 09/23/25 14:00 BP 132/85 09/23/25 14:00 Pulse Ox 98 09/23/25 14:00 O2 Del Method Nasal Cannula 09/23/25 14:00 O2 Flow Rate 1 09/23/25 14:00 FiO2 2 09/21/25 05:45 09/22/25 09/23/25 09/23/25 22:59 06:59 14:59 Intake Total 433.75 / 961.927 490.882 / 1452.809 Output Total 625 / 625 600 / 1225 Balance -191.25 / 336.927 -109.118 / 227.809 Weight last 48 hrs Weight 73.482 kg Weight 68.492 kg Physical Exam 2 Const: COMMON NORMALS: patient oriented x3 and alert GENERAL APPEARANCE: c ooperative ORIENTATION/CONSCIOUSNESS: Yes awake HENMT: COMMON NORMALS: oropharynx normal Neck/C-Spine: COMMON NORMALS: no JVD Resp: COMMON NORMALS: normal respiratory effort and clear to auscultation bilaterally AUSCULTATION: clear to auscultation bilaterally Cardio: COMMON NORMALS: no JVD, regular rhythm, S1 normal heart sound present, S2 normal heart sound present and No murmurs present (Cardio) RHYTHM: regular rhythm HEART SOUNDS: S1 normal heart sound present and S2 normal heart sound present GI: COMMON NORMALS: Normal to inspection, nondistended, normoactive bowel sounds present, Soft to palpation and non-tender PALPATION: Yes Soft to palpation Extremity: COMMON NORMALS: no joint enlargement and no pedal edema Neuro: COMMON NORMALS: patient oriented x3 and moves all extremities S ENSORIUM/ORIENTATION: Yes alert Skin: COMMON NORMALS: no rashes or lesions noted NARRATIVE SKIN EXAM: Without splinter hemorrhages. Right thumb fingernail with what appears to be a nevus which she reports is chronic, will benefit from follow-up with dermatology. GENERAL SKIN EXAM: no rashes or lesions noted Urinary Catheter Management: Quigley: Cath Placed During This Visit: no Reason for Continuing Indwelling Catheter: Accurate Measurement of Urinary Output in Critically Ill Patients Data 09/23/25 03:20 09/23/25 03:20 Micro: Microbiology 09/22/25 15:09 Gram Stain - Final Pleural Fluid Body Fluid Culture - Preliminary A&P Assessment and plan 1. Aortic valve mass: Anticipated YAMIL tomorrow per prior discussion with Dr. Wilson for further evaluation of the aortic valve mass, assessment for any other perivalvular findings. Reviewed cardiology note, appreciate recommendations. Remains afebrile. Without leukocytosis. Follow-up blood cultures, so far remaining negative on review. Reviewed blood culture, so far remaining negative. Noted about 0.8 cm aortic valve mass on discussion with cardiology on review of TTE. Appreciate consultation. Consideration of likely thrombotic mass with calcification versus vegetation, although per discussion visualization difficult to distinguish, but clinically otherwise behaving less like bacterial vegetation. Has not had any recurrent fevers which he himself also denies preadmission. Monitor vitals for any fever. Otherwise do not see signs of embolic disease, there is a small nevus on the right thumb which he states has been chronic. Will benefit from follow-up with dermatology. Follow-up blood cultures for any growth. Without evidence of endocarditis, after discharge would benefit from follow-up of the mass with TTE. 2. Dysphagia: Referring dysphagia, appears to be doing better last night per discussion with speech therapy, however, overnight noted to be aspirating again with liquids. Was made NPO. Will place on dysphagia diet pur?ed, moderately thick liquids pending speech therapy reassessment. Obtain MBS. 3. Shock: Improving. Blood pressure still soft, but has not had to be restarted on pressor infusion. Reviewed cosyntropin stimulation test. Continue midodrine. Continue to monitor blood pressures. Continues to have pressor requirement, up to 8 mcg Levophed. Initially weaned off, but still ongoing requirement. Possible combination, including component of cardiogenic shock, with acute decline in ejection fraction down to about 45%, valvular heart disease. Cannot exclude obstructive shock with noted need for oxygen, as well as presentation with A-fib with RVR, cannot exclude PE at current time. Continue anticoagulation. Appears to be less likely septic shock as he has been afebrile, without leukocytosis, without obvious signs of infection. Questionable pneumonia on chest x-ray. With pleural effusions, discussed with radiologist, he has been on heparin drip but also on aspirin 325 mg. Will obtain ultrasound, hold aspirin for now, may temporarily hold anticoagulation for thoracentesis. Assess if enough fluid for sample. For now continue empiric antibiotics although infectious suspected less likely. 4. Acute kidney injury superimposed on CKD: Creatinine up to 2.2 on review. Reviewed intake output. Bladder scan has been obtained. Not retaining urine. Reviewed kidney ultrasound. Stop vancomycin. Follow-up chemistry. Noted mild hyperkalemia, potassium 5.3. Change diet to low potassium. 5. Atrial fibrillation with RVR: Discussed with cardiology, transition to oral amiodarone, discontinue drip. Continue to monitor on telemetry. Discussed heparin drip with cardiology, hemoglobin with some decline, will hold further heparin drip for now. Subcutaneous prophylactic heparin started instead for now. Resume aspirin. 6. Cardiomyopathy: New decrease in EF down to 45%. 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 Troponin series with moderate elevation, without significant up or downtrend. Reviewed echocardiogram, discussed with cardiology. Appreciate consultation. No plan for coronary angiography at this time, consideration possibly at a later date. 7. Cardiogenic shock: 8. Community acquired bacterial pneumonia: - Possible, for now empirically continue Rocephin and Azithromycin Reviewed pleural fluid findings after thoracentesis. Appears to be transudative effusion. Gram stain so far negative. Culture negative so far on review. Heparin held, aspirin held, underwent thoracentesis with drainage of a liter of clear yellow fluid. Reviewed chest x-ray, no pneumothorax. Incidentally noted peripheral area of increased density and a slight distortion within the left midlung more suggestive of postinflammatory change and scarring. Noted choking on food and drink, suspect speech therapy, changed to dysphagia diet. Discussed with ST, appreciate recommendations 9. Acute hypoxic respiratory failure: Improving, was able to wean down on oxygen requirement after thoracentesis. - PRN o2 to maintain O2 saturations above 92%. DNI. 10. CVA, old, cognitive deficits: - Plan as above 11. Weakness: Plan: Moderate to severe MR: Noted on echocardiography will benefit from follow- up Right thumb nailbed nevus -reports chronic. Would benefit from assessment with dermatology. PDMP PDMP Reviewed: Not Reviewed Attestations 2 Medical Necessity Statement*: Continue admission for assessment and management of improving/resolving shock, with assessment of aortic valve mass, follow-up cultures, further optimization of dysphagia. 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
--- NOTE | 2025-09-23 14:39 | P.MISC_ITS ---
Miscellaneous Note Purpose of Documentation: Abnormal echo Note: I have personally interpreted the transthoracic echocardiogram from 09/21/25. There is a small echogenic mobile mass measuring approximately 0.8 cm x 0.5 cm seen in the left ventricular outflow tract near the base of the aortic valve. It is closest in proximity to the noncoronary and left coronary aortic valve cusps. It is not visually clear if the mass is actually attached to the aortic valve l eaflets or not. Once the patient is more stable, I would recommend a YAMIL, such as on Saturday, and cover him with antibiotics for possible Endocarditis in the meantime. There is mild aortic valve regurgitation. No significant dysfunction of the valve.
--- NOTE | 2025-09-23 22:00 | PC.NURSE ---
Tarry Stool Patient stated he needed to have a bowel movement. While cleaning patient, dark, tarry liquid stool seeping around hard, firm stool at rectum. Patient stated he couldn't keep trying to poop. Dr. Jeffries notified of dark, tarry stool as well as hard, firm stool impacted in rectum. Order received for a fecal occult blood test as well as a digital disimpaction to be performed. Disimpaction performed with multiple large, hard pieces of stool removed. Once hard stool removed, copious amounts of dark, tarry liquid bowel movement noted. Dr. Jeffries at bedside and stat CBC ordered.
--- NOTE | 2025-09-23 22:56 | PC.NURSE ---
Carafate, Protonix Dr. Jeffries on unit; verbal orders received for 40 mg protonix IVP BID, 1 gm carafate PO Q6H scheduled, and to hold subq heparin order.
[2025-09-23] MEDS: pantoprazole 40 mg SDV IVP (23:01)
[2025-09-23 23:24] LABS: Hematocrit 27.4 % (37-53); Hemoglobin 8.70 g/dL (11.27-16.99); Mean Corpuscular HGB Conc 31.8 g/dL (30-55); Mean Corpuscular Hemoglobin 32.0 pg (27-33); Mean Corpuscular Volume 100.7 fl (82-101); Nucleated Red Blood Cells % 0 %; Platelet Count 141 10^3/cmm (157-399); Red Blood Count 2.72 10^6/uL (3.85-5.65); White Blood Count 7.61 10^3/uL (3.29-11.43)
--- NOTE | 2025-09-23 23:43 | CTR_ITS ---
PROCEDURE INFORMATION: Exam: CTA Abdomen and Pelvis With Contrast Exam date and time: 09/24/2025 12:15 AM Age: 89 years old Clinical indication: Other: Possible gi bleed TECHNIQUE: Imaging protocol: Computed tomographic angiography of the abdomen and pelvis with contrast. Exam focused on the arteries. 3D rendering (Not supervised by radiologist): MIP and/or 3D reconstructed images were created by the technologist. Radiation optimization: All CT scans at this facility use at least one of these dose optimization techniques: automated exposure control; mA and/or kV adjustment per patient size (includes targeted exams where dose is matched to clinical indication); or iterative reconstruction. Contrast material: OMNI 350; Contrast volume: 100 ml; Contrast route: INTRAVENOUS (IV); COMPARISON: CT abdomen pelvis w con* [id number] 08/05/2020 9:41 AM RADIATION DOSE METRICS: Total DLP (mGy-cm): 652.03 FINDINGS: Pleural spaces: Large bilateral pleural effusions. Subjacent airspace consolidations, concerning for multilobar pneumonia. Diaphragm: Small hiatal hernia. Aorta: Atherosclerotic changes of the aorta. No aortic aneurysm or dissection. Celiac and mesenteric arteries: No occlusion or significant stenosis. Renal arteries: No occlusion or significant stenosis. Right iliac arteries: No occlusion or significant stenosis. Left iliac arteries: No occlusion or significant stenosis. Liver: No mass. Gallbladder and biliary ducts: Pneumobilia. Cholecystectomy. Pancreas: Unremarkable. No mass. No ductal dilation. Spleen: Unremarkable. No splenomegaly. Adrenal glands: Unremarkable. No mass. Kidneys and ureters: Unremarkable. No solid mass. No hydronephrosis. Stomach and bowel: Diverticulosis, without acute diverticulitis. No small bowel obstruction. No free air. No CTA evidence of gastrointestinal bleed. Appendix: No evidence of appendicitis. Intraperitoneal space: See Stomach and bowel finding. Lymph nodes: Unremarkable. No enlarged lymph nodes. Urinary bladder: Quigley catheter terminates in the urinary bladder which is mildly thickened, correlate for UTI. Left bladder diverticulum measures 2.3 x 3.0 cm. Reproductive: Unremarkable as visualized. Bones/joints: Degenerative changes of the spine. Soft tissues: Anasarca. CT/CT angio abdomen pelvis [id number] IMPRESSION: 1. No CTA evidence of gastrointestinal bleed. 2. Large bilateral pleural effusions. Subjacent airspace consolidations, concerning for multilobar pneumonia. 3. Small hiatal hernia. 4. Pneumobilia. Cholecystectomy. 5. Diverticulosis, without acute diverticulitis. No small bowel obstruction. No free air. 6. Quigley catheter terminates in the urinary bladder which is mildly thickened, correlate for UTI. 7. No aortic aneurysm or dissection.
--- NOTE | 2025-09-23 23:44 | PC.NURSE ---
CT Dr. Jeffries notified of patient's hgb 8.7. Creatinine discussed previously. Order received for stat abdomen/pelvis CT angio with contrast.
[2025-09-24] VITALS (89 sets, daily range): BP systolic 87–165; BP diastolic 41–88; PULSE 77–144; RESP 13–118; TEMP 36.4–36.9; O2SAT 96–100
[2025-09-24] MEDS: iohexol 350 mg/mL 500 mL Btl (per mL) IV (00:27)
--- NOTE | 2025-09-24 01:44 | P.EN_ITS ---
Event Note Event Note: Large dark-colored stools/high likely melena based on appearance and patient hemoglobin trend Assessment: GI bleed for further management Plan: Hold heparin, and aspirin PPI twice daily CBC trend SCDs CTA abdomen pelvis was done did not show any overt bleeding If the patient is dropping hemoglobin further then consider surgery on board in the morning Monitor hemodynamics and keep MAP above 65 Maintain 2 IV bore cannulas for anticipation of aggressive resuscitation if needed Active type and screen Hemoglobin to be maintained above 7 Event Notes Attestations Time Spent in Patient Care: 16 - 35 minutes (>than 50% of time sp ent in counselling and/or direct pt care on unit) .
[2025-09-24] MEDS: cefTRIAXone 1,000 mg SDV 1000 MG IVP (02:07)
--- NOTE | 2025-09-24 02:15 | PC.NURSE ---
Chest Xray Patient noted to have increased respiratory effort and states he feels more short of breath. Oxygen saturation 98% on 2LNC. Dr. Wan notified; order received for morning chest xray.
--- NOTE | 2025-09-24 04:00 | XRR_ITS ---
PROCEDURE INFORMATION: Exam: XR Chest Exam date and time: 09/24/2025 5:16 AM Age: 89 years old Clinical indication: Shortness of breath; Additional info: Follow up TECHNIQUE: Imaging protocol: Radiologic exam of the chest. Views: 1 view. COMPARISON: CR XR chest 1V portable [id number] 09/22/2025 3:57 PM FINDINGS: Lungs: Widespread bilateral patchy airspace opacities overall increased. Pleural spaces: Bilateral pleural effusions without significant change. Negative for pneumothorax. Heart/Mediastinum: Unremarkable. No cardiomegaly. Bones/joints: Unremarkable. XR/XR chest 1V portable [id number] IMPRESSION: Increased bilateral airspace opacities which may represent pulmonary edema.
--- NOTE | 2025-09-24 04:30 | PC.NURSE ---
Decline At approximately 0420, patient's oxygen saturation decreased into the 50s, patient completely unresponsive to all stimuli. Patient's oral airway suctioned with little debris removed. RT at bedside, nasal cannula titrated to 6LNC. Shortly after titrating oxygen, patient's saturation increased into the high 90s, patient nodding head yes to questions. Dr. Francisco contacted; orders received for troponin, ABG, and EKG stat.
--- NOTE | 2025-09-24 04:41 | ECG_ITS ---
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 Measurements Intervals [place] Rate: 97 P: 31 NE: 145 QRS: -42 QRSD: 161 T: 99 QT: 370 QTc: 471 Interpretive Statements SINUS RHYTHM LEFT AXIS DEVIATION [QRS AXIS < -30] INTRAVENTRICULAR CONDUCTION DELAY [130+ ms QRS DURATION] Compared to ECG 09/21/2025 09:06:28 Left-axis deviation now present Electronically Signed On 09-25-2025 17:48:15 ASTROCHEMIST by Dangelo Anderson M.D. [email or web address]
[2025-09-24 04:48] LABS: Mean Corpuscular HGB Conc 32.1 g/dL (30-55); Mean Corpuscular Hemoglobin 32.3 pg (27-33); Mean Corpuscular Volume 100.5 fl (82-101); Nucleated Red Blood Cells % 0 %; Platelet Count 114 10^3/cmm (157-399); Red Blood Count 1.86 10^6/uL (3.85-5.65); White Blood Count 10.71 10^3/uL (3.29-11.43)
[2025-09-24 04:49] LABS: ABG PCO2 42.1 mmHg (35-45); ABG PH Result 7.33 (7.35-7.45); Arterial Blood Gas Hematocrit 19.6 % (42-52); Blood Gas Allen Test Pos; Blood Gas LPM 6.0 %; Blood Gas Sample Site Radial, right; Blood Gas Sample Type Arterial; Carboxyhemoglobin 1.5 %THgb (0.4-20.1); Glucose Level-ABG 122.0 mg/dL (70-115); HCO3 ABG 21.9 mmol/L (22-26); Ionized Calcium Level - ABG 1.3 mmol/L (1.1-1.4); Methemoglobin 0.6 % (0.4-1.5); Oxygen Saturation ABG > 99.1; PO2 ABG 124.0 mmHg (80.0-100.0); Potassium Level - ABG 5.2 mmol/L (3.5-5.0); Sodium Level - ABG 145.0 mmol/L (131-143)
[2025-09-24 04:55] LABS: Hematocrit 18.7 % (37-53); Hemoglobin 6.00 g/dL (11.27-16.99)
[2025-09-24 05:12] LABS: Alanine Aminotransferase 19 U/L (0-41); Albumin Level 2.2 g/dL (3.5-5.2); Alkaline Phosphatase 100 U/L (40-130); Anion Gap 10.1 (5-19); Aspartate Amino Transferase 19 U/L (0-40); Blood Urea Nitrogen 69 mg/dL (8-23); Calcium 7.9 mg/dL (8.5-10.5); Carbon Dioxide 23 mmol/L (22-29); Chloride 114 mmol/L (98-107); Creatinine Clr Calc Pharmacy 29.3675; Globulin 2.8 g/dL (1.3-4.6); Glucose 101 mg/dL (65-115); Osmolality Calculated 314 mOsm/kg (285-295); Potassium 5.1 mmol/L (3.5-5.1); Sodium 142 mmol/L (136-145); Total Protein 5.0 g/dL (6.6-8.7)
[2025-09-24 05:13] LABS: Troponin T (5th) Once 64 ng/L (0-15)
--- NOTE | 2025-09-24 06:30 | PC.NURSE ---
Blood At 0500, patient's hgb 6.0. Dr. Wan notified; order received to transfuse 1 unit of blood and keep 2 units PRBCs on hold for future use. At approximately 0535, patient's oxygen saturation decreased into the 50s again while patient unresponsive to all stimuli with agonal respirations. Dr. Wan notified; orders received to place patient on heated high flow and rapid transfuse the first unit of blood. First unit rapid transfused per TAR. At 0618, patient staying completely unresponsive with no gag reflex, BP 92/51 MAP 64, oxygen saturation 100% on HHF with snoring/agonal respirations. Dr. Wan notified; order received to rapid transfuse the second unit of RBCs as well as administer 20 mg lasix IVP once. At 0630, Patient's blood pressure 147/70. Dr. Wan at bedside; order received to administer second unit of RBCs starting at 50 ml/hr per protocol. Patient remaining unresponsive.
--- NOTE | 2025-09-24 06:35 | PC.NURSE ---
, Rachel, updated throughout the morning with patient condition.
[2025-09-24] MEDS: FUROsemide 10 mg/mL SDV 2mL 20 MG IVP (06:42)
--- NOTE | 2025-09-24 07:05 | P.PN_ITS ---
Subjective 2 Subjective: Episode of hypoxia and loss of responsiveness overnight saturation to be down to 50s. Suspected additional aspiration. Nasal cannula flow increased, subsequently switched to heated high flow cannula. RBC requested to be prepared with aspirin and heparin held after dark appearing liquid stool last night. Hemoglobin coming back at 6. Transfusion requested, received with rapid infusion as blood pressure MAP getting to 64. 20 mg IV push Lasix and additional unit requested for infusion. Vitals/I&O/Wt Last Vital Signs Temp 98 F 09/24/25 06:54 Pulse 86 09/24/25 06:54 Resp 30 H 09/24/25 06:54 BP 103/84 09/24/25 06:54 Pulse Ox 100 09/24/25 06:54 O2 Del Method Nasal Cannula 09/24/25 00:00 O2 Flow Rate 35 09/24/25 06:11 FiO2 50 09/24/25 06:11 09/23/25 09/24/25 09/24/25 22:59 06:59 14:59 Intake Total 240 / 240 400 / 640 Output Total 750 / 750 1100 / 1850 Balance -510 / -510 -700 / -1210 Weight last 48 hrs Weight 73.482 kg Physical Exam 2 Narrative: Weak Const: GENERAL APPEARANCE: cooperative and lethargic O RIENTATION/CONSCIOUSNESS: Yes lethargic HENMT: COMMON NORMALS: oropharynx normal Neck/C-Spine: COMMON NORMALS: no JVD Resp: OTHER: Coarse lung sounds. Sonorous breathing. Cardio: COMMON NORMALS: no JVD, regular rhythm, S1 normal heart sound present, S2 normal heart sound present and No murmurs present (Cardio) RHYTHM: regular rhythm HEART SOUNDS: S1 normal heart sound present and S2 normal heart sound present GI: COMMON NORMALS: Normal to inspection, nondistended, normoactive bowel sounds present, Soft to palpation and non-tender PALPATION: Yes Soft to palpation Extremity: COMMON NORMALS: no joint enlargement and no pedal edema Neuro: COMMON NORMALS: moves all extremities SENSORIUM/ORIENTATION: Yes lethargic Skin: COMMON NORMALS: no rashes or lesions noted NARRATIVE SKIN EXAM: Without splinter hemorrhages. Right thumb fingernail with what appears to be a nevus which she reports is chronic, will benefit from follow-up with dermatology. GENERAL SKIN EXAM: no rashes or lesions noted Urinary Catheter Management: Quigley: Cath Placed During This Visit: no Reason for Continuing Indwelling Catheter: Accurate Measurement of Urinary Output in Critically Ill Patients Data 09/24/25 03:50 09/24/25 03:50 Micro: Microbiology 09/23/25 21:40 Occult Blood (FIT) - Final Stool 09/22/25 15:09 Gram Stain - Final Pleural Fluid Body Fluid Culture - Preliminary A&P Assessment and plan 1. Acute hypoxic respiratory failure: Hypoxic episode overnight with saturation down to the 50s. Became unresponsive. Suspected episode of additional aspiration. Made n.p.o. except for medications. Oxygen flow increased on nasal cannula. Started on heated high flow cannula. Repeat chest x-ray obtained, finding increased bilateral airspace opacities which may present pulmonary edema. Discussed with nursing, RT. Discussed worsened condition with his . Requiring ICU admission. - PRN o2 to maintain O2 saturations above 92%. DNI. 2. Acute blood loss anemia: Dark liquid stool last night. Hemoglobin last night 8.7. Aspirin and heparin held. Requested 1 unit RBC to be prepared. Overnight hypoxic episode with episode of unresponsiveness recheck hemoglobin coming back at 6. MAP down to 64 mmHg. Rapid infusion of 1 unit RBC, 20 mg IV push Lasix, additional unit requested to be started. Repeat blood counts requested. 3. Aortic valve mass: Anticipated YAMIL on Saturday for further evaluation of the aortic valve mass, assessment for any other perivalvular findings. Reviewed cardiology note, appreciate recommendations. Remains afebrile. Without leukocytosis. Follow-up blood cultures, so far remaining negative on review. Reviewed blood culture, so far remaining negative. Noted about 0.8 cm aortic valve mass on discussion with cardiology on review of TTE. Appreciate consultation. Consideration of likely thrombotic mass with calcification versus vegetation, although per discussion visualization difficult to distinguish, but clinically otherwise behaving less like bacterial vegetation. Has not had any recurrent fevers which he himself also denies preadmission. Monitor vitals for any fever. Otherwise do not see signs of embolic disease, there is a small nevus on the right thumb which he states has been chronic. Will benefit from follow-up with dermatology. Follow-up blood cultures for any growth. Without evidence of endocarditis, after discharge would benefit from follow-up of the mass with TTE. 4. Dysphagia: Additional respiration with respiratory failure as above. Made n.p.o.. Referring dysphagia, appears to be doing better last night per discussion with speech therapy, however, overnight noted to be aspirating again with liquids. Was made NPO. Will place on dysphagia diet pur?ed, moderately thick liquids pending speech therapy reassessment. Obtain MBS. 5. Shock: Improving. Blood pressure still soft, but has not had to be restarted on pressor infusion. Reviewed cosyntropin stimulation test. Continue midodrine. Continue to monitor blood pressures. Continues to have pressor requirement, up to 8 mcg Levophed. Initially weaned off, but still ongoing requirement. Possible combination, including component of cardiogenic shock, with acute decline in ejection fraction down to about 45%, valvular heart disease. Cannot exclude obstructive shock with noted need for oxygen, as well as presentation with A-fib with RVR, cannot exclude PE at current time. Continue anticoagulation. Appears to be less likely septic shock as he has been afebrile, without leukocytosis, without obvious signs of infection. Questionable pneumonia on chest x-ray. With pleural effusions, discussed with radiologist, he has been on heparin drip but also on aspirin 325 mg. Will obtain ultrasound, hold aspirin for now, may temporarily hold anticoagulation for thoracentesis. Assess if enough fluid for sample. For now continue empiric antibiotics although infectious suspected less likely. 6. Acute kidney injury superimposed on CKD: Creatinine down to 1.8 on review. Reviewed intake output. Bladder scan has been obtained. Not retaining urine. Reviewed kidney ultrasound. Stop vancomycin. Follow-up chemistry. Noted mild hyperkalemia, potassium 5.1. Low potassium diet. 7. Atrial fibrillation with RVR: Discussed with cardiology, transition to oral amiodarone, discontinue drip. Continue to monitor on telemetry. Discussed heparin drip with cardiology, hemoglobin with some decline, will hold further heparin drip for now. Subcutaneous prophylactic heparin started instead for now. Resume aspirin. 8. Cardiomyopathy: New decrease in EF down to 45%. 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 Troponin series with moderate elevation, without significant up or downtrend. Reviewed echocardiogram, discussed with cardiology. Appreciate consultation. No plan for coronary angiography at this time, consideration possibly at a later date. 9. Cardiogenic shock: 10. Community acquired bacterial pneumonia: - Possible, for now empirically continue Rocephin and Azithromycin Reviewed pleural fluid findings after thoracentesis. Appears to be transudative effusion. Gram stain so far negative. Culture negative so far on review. Heparin held, aspirin held, underwent thoracentesis with drainage of a liter of clear yellow fluid. Reviewed chest x-ray, no pneumothorax. Incidentally noted peripheral area of increased density and a slight distortion within the left midlung more suggestive of postinflammatory change and scarring. Noted choking on food and drink, suspect speech therapy, changed to dysphagia diet. Discussed with ST, appreciate recommendations 11. CVA, old, cognitive deficits: - Plan as above 12. Weakness: Plan: Acute metabolic encephalopathy secondary to hypoxia following episode of additional aspiration. Obtundation. 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 Would benefit from assessment with dermatology. PDMP PDMP Reviewed: Not Reviewed Attestations 2 Medical Necessity Statement*: Continue admission for assessment and management of hypoxic respiratory failure, acute encephalopathy, acute anemia, shock, with assessment of aortic valve mass, follow-up cultures, further optimization of dysphagia. Coding Level of Care Code Critical Care >/= 30 minutes Critical care time (in minutes): 40 The high probability of a clinically significant, sudden or life threatening deterioration, as referenced in this documentation, required my full and direct attention, intervention and personal management. The critical care time shown is in addition to time spent performing any reported separately billable procedures and includes the following: [x] Data and vital sign review and interpretation [x ] Patient assessment, examination and intervention [x] Medication orders and management [x] Patient/Family updates as able [x] Care Coordination and Documentation. 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
[2025-09-24 10:21] LABS: Hematocrit 25.0 % (37-53); Hemoglobin 8.10 g/dL (11.27-16.99); Mean Corpuscular HGB Conc 32.4 g/dL (30-55); Mean Corpuscular Hemoglobin 30.1 pg (27-33); Mean Corpuscular Volume 92.9 fl (82-101); Nucleated Red Blood Cells % 0 %; Platelet Count 94 10^3/cmm (157-399); Red Blood Count 2.69 10^6/uL (3.85-5.65); White Blood Count 11.51 10^3/uL (3.29-11.43)
[2025-09-24] MEDS: pantoprazole 40 mg SDV IVP ×2 (10:49→23:11)
--- NOTE | 2025-09-24 12:16 | PC.SOCIAL ---
IMM Updated Updated pt's family on IMM. No questions voiced. Provided pt a copy. Initialed, dated, & timed a copy & placed in chart.
--- NOTE | 2025-09-24 12:55 | P.PN_ITS ---
Subjective 2 Subjective: Events from overnight noted: drop in Pox to 50% thought to be from aspiration, unresponsiveness, melena with drop in Hgb to 6. Family requested full medical therapy but DNR/DNI code status. Patient transfused. Confused on exam this morning. Vitals/I&O/Wt Last Vital Signs Temp 98 F 09/24/25 06:54 Pulse 89 09/24/25 12:38 Resp 118 H 09/24/25 10:58 BP 148/77 09/24/25 12:38 Pulse Ox 100 09/24/25 12:38 O2 Del Method Nasal Cannula 09/24/25 00:00 O2 Flow Rate 35 09/24/25 08:39 FiO2 50 09/24/25 08:39 09/23/25 09/24/25 09/24/25 22:59 06:59 14:59 Intake Total 240 / 240 400 / 640 0 / 0 Output Total 750 / 750 1100 / 1850 300 / 300 Balance -510 / -510 -700 / -1210 -300 / -300 Weight last 48 hrs Weight 151 lb 1.6 oz Weight 162 lb Physical Exam 2 Narrative: General: very frail, very ill appearing elderly male, laying flat on back at 45degree head up angle Neck: No jugular venous distention or carotid bruits Heart: Normal S1 and S2 with a regular rate and rhythm Lungs: mild tachypnea, no rales, scattered rhonchi Extremities: No lower extremity edema Neuro: response appropriately to some questions, but does not respond to other questions Urinary Catheter Management: Quigley: Cath Placed During This Visit: no Reason for Continuing Indwelling Catheter: Accurate Measurement of Urinary Output in Critically Ill Patients Data 09/24/25 09:55 09/24/25 03:50 Micro: Microbiology 09/22/25 15:09 Gram Stain - Final Pleural Fluid Body Fluid Culture - Preliminary 09/23/25 21:40 Occult Blood (FIT) - Final Stool A&P Assessment and plan 1. Atrial fibrillation and flutter: 2. Aortic valve mass: 3. Cardiomyopathy: Mildly reduced EF, EF 45% 4. Shock: - various underlying causes including anemia, possible pneumonia/?SIRS, mildly reduced EF but mildly reduced EF alone would not cause shock requiring Levophed 5. Benign essential HTN: 6. History of CVA (cerebrovascular accident): 7. Community acquired bacterial pneumonia: 8. Acute HFrEF (heart failure with reduced ejection fraction): 9. S/P thoracentesis: Plan: - in critical condition with life threatening events overnight including severe hypoxic respiratory failure, hypotension, and acute GI bleed with severe drop in Hgb - levophed resumed, ASA and SC heparin held, blood transfused with improvement in Hgb up to 8 - remains in sinus rhythm on amio - Continue with amio 200mg daily and midodrine - CXR with possible pulmonary edema. Recent thoracentesis for pleural effusion. Lasix IV prn - one dose given with the blood transfusion last night. I will given an additional lasix 40mg IV x 1 now. Cr mildly improved compared to yesterday - YAMIL to assess mass in the LVOT on permanent hold unless clinical status improves. 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
[2025-09-24] MEDS: FUROsemide 10 mg/mL SDV 4mL 40 MG IVP (13:29)
--- NOTE | 2025-09-24 15:09 | PC.NURSE ---
HR 140s, large amount of black tarry stool, Dr. Francisco order 1 unit of blood and amio drip
[2025-09-24] MEDS: AMIODARONE HCL/D5W 900 MG/500 ML BAG 16.67 MG IV (15:51)
[2025-09-24] MEDS: amiodarone 150 MG/100 ML PREMIX 400 MG IV (15:55)
--- NOTE | 2025-09-24 15:56 | ECG_ITS ---
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 Measurements Intervals [place] Rate: 134 P: 259 [place]: 123 QRS: -47 QRSD: 161 T: 155 QT: 333 QTc: 498 Interpretive Statements SINUS TACHYCARDIA VERSUS ATRIAL FLUTTER LEFT AXIS DEVIATION [QRS AXIS < -30] RIGHT BUNDLE BRANCH BLOCK [120+ ms QRS DURATION, UPRIGHT V1, 40+ ms S IN I/aVL/V4/V5/V6] MARKED ST DEPRESSION, CONSIDER SUBENDOCARDIAL INJURY [0.2+ mV ST DEPRESSION] ACUTE [place] Compared to ECG 09/24/2025 04:41:59 RHYTHM NOW INDETERMINATE Electronically Signed On 09-25-2025 17:35:20 RN PLACEMENT by Dangelo Anderson M.D. [email or web address]
--- NOTE | 2025-09-24 16:13 | PC.NURSE ---
ST change noted on Monitor, EKG showed possible acute LA, Dr. Francisco notified 1x Digoxin 125 mcg IVP ordered
[2025-09-24] MEDS: digoxin 250 mcg/ml INJ 2 mL 125 MCG IVP (16:19)
--- NOTE | 2025-09-24 16:43 | PC.NURSE ---
son and daughter at bedside, expressed wish to move to comfort care, Dr. Francisco notified, Family approved finishing current unit of blood running
[2025-09-25 01:20] VITALS: BP 95/56; PULSE 129; RESP 21; TEMP 37.1; O2SAT 95
[2025-09-25] MEDS: blistex lip oint 7 gm Tube 1 APPLIC TOPICAL (03:53)
[2025-09-25 05:25] VITALS: PULSE 132; RESP 17; TEMP 37.1; O2SAT 92
[2025-09-25] MEDS: morphine 4 mg/mL SDV 1 mL IVP ×3 (06:02→19:55)
[2025-09-25 07:25] VITALS: BP 105/62; PULSE 133; RESP 22; TEMP 36.6; O2SAT 96
--- NOTE | 2025-09-25 10:03 | PC.PT ---
Patient HR renders him ineligible for therapy due to high risk for cardiac events.
[2025-09-25] MEDS: pantoprazole 40 mg SDV IVP ×2 (11:20→21:51)
[2025-09-25 13:58] VITALS: RESP 22; O2SAT 96
[2025-09-25 20:00] VITALS: BP 108/70; PULSE 138; RESP 16; TEMP 36.7; O2SAT 90
--- NOTE | 2025-09-25 20:00 | PM.PN ---
Subjective Subjective: He appears mildly disoriented, but awake, interacting, denies pain or discomfort. Vitals/I&O/Wt Last Vital Signs Temp 97.8 F 09/25/25 07:25 Pulse 133 H 09/25/25 07:25 Resp 22 H 09/25/25 13:58 BP 105/62 09/25/25 07:25 Pulse Ox 96 09/25/25 13:58 O2 Del Method Nasal Cannula 09/25/25 07:25 O2 Flow Rate 2 09/25/25 08:37 FiO2 40 09/24/25 16:21 09/25/25 09/25/25 09/25/25 06:59 14:59 22:59 Output Total 350 / 4250 1000 / 1000 Balance -350 / -3197.435 -1000 / -1000 Weight last 48 hrs Weight 68.039 kg Weight 68.538 kg Physical Exam Narrative: Hard of Const: GENERAL APPEARANCE: cooperative ORIENTATION/CONSCIOUSNESS: Yes awake HENMT: COMMON NORMALS: oropharynx normal Neck/C-Spine: COMMON NORMALS: no JVD Resp: COMMON NORMALS: normal respiratory effort and clear to auscultation bilaterally AUSCULTATION: clear to auscultation bilaterally OTHER: Coarse lung sounds. Cardio: COMMON NORMALS: no JVD, regular rhythm, S1 normal heart sound present, S2 normal heart sound present and No murmurs present (Cardio) RHYTHM: regular rhythm HEART SOUNDS: S1 normal heart sound present and S2 normal heart sound present GI: COMMON NORMALS: Normal to inspection, nondistended, normoactive bowel sounds present, Soft to palpation and non-tender PALPATION: Yes Soft to palpation Extremity: COMMON NORMALS: no joint enlargement and no pedal edema Neuro: COMMON NORMALS: moves all extremities Skin: COMMON NORMALS: no rashes or lesions noted NARRATIVE SKIN EXAM: Without splinter hemorrhages. Right thumb fingernail with what appears to be a nevus which she reports is chronic, will benefit from follow-up with dermatology. GENERAL SKIN EXAM: no rashes or lesions noted Urinary Catheter Management: Quigley: Cath Placed During This Visit: no Reason for Continuing Indwelling Catheter: Other Data 09/24/25 09:55 09/24/25 03:50 Micro: Microbiology 09/22/25 15:09 Mycobacterial Smear - Preliminary Body Fluids - Pleura 09/22/25 15:09 Gram Stain - Final Pleural Fluid Body Fluid Culture - Preliminary A&P Assessment and plan 1. Acute hypoxic respiratory failure: Recurrent aspiration with worsening respiratory failure yesterday, with recurrence of atrial fibrillation with RVR, generally weak. Has not made significant improvement. In accordance with his prior wishes per discussion with family transition to hospice/comfort care. Transfer to preservers. Acute care orders discontinued. Comfort measures added. 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 2. Acute blood loss anemia: 3. Aortic valve mass: 4. Dysphagia: Pleasure feeds, resume dysphagia diet. 5. Shock: 6. Acute kidney injury superimposed on CKD: 7. Atrial fibrillation with RVR: 8. Cardiomyopathy: New decrease in EF down to 45%. 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 Troponin series with moderate elevation, without significant up or downtrend. Possible prehospitalization CT. Reviewed echocardiogram, discussed with cardiology. Appreciate consultation. No plan for coronary angiography at this time, consideration possibly at a later date. 9. Cardiogenic shock: 10. Community acquired bacterial pneumonia: 11. CVA, old, cognitive deficits: 12. Weakness: Plan: Acute metabolic encephalopathy secondary to hypoxia following episode of additional aspiration. 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
[2025-09-26] MEDS: morphine 4 mg/mL SDV 1 mL IVP ×2 (05:18→16:11)
[2025-09-26 08:00] VITALS: O2SAT 91
[2025-09-26] MEDS: pantoprazole 40 mg SDV IVP ×2 (10:40→21:54)
[2025-09-26 11:44] VITALS: O2SAT 88
--- NOTE | 2025-09-26 19:51 | P.PN_ITS ---
Subjective 2 Subjective: Resting. Appears comfortable. Vitals/I&O/Wt Last Vital Signs Temp 98.0 F 09/25/25 20:00 Pulse 138 H 09/25/25 20:00 Resp 16 09/25/25 20:00 BP 108/70 09/25/25 20:00 Pulse Ox 88 L 09/26/25 11:44 O2 Del Method Nasal Cannula 09/26/25 11:44 O2 Flow Rate 0.5 09/26/25 08:00 FiO2 40 09/24/25 16:21 09/26/25 09/26/25 09/26/25 06:59 14:59 22:59 Intake Total 50 / 50 Output Total 1000 / 2000 500 / 500 700 / 1200 Balance -950 / -1950 -500 / -500 -700 / -1200 Weight last 48 hrs Weight 66.406 kg Weight 68.039 kg Physical Exam 2 Narrative: Hard of hearing Const: ORIENTATION/CONSCIOUSNESS: not awake HENMT: COMMON NORMALS: oropharynx normal Neck/C-Spine: COMMON NORMALS: no JVD Resp: COMMON NORMALS: normal respiratory effort OTHER: Coarse lung sounds. Cardio: COMMON NORMALS: no JVD, regular rhythm, S1 normal heart sound present, S2 normal heart sound present and No murmurs present (Cardio) RHYTHM: regular rhythm HEART SOUNDS: S1 normal heart sound present and S2 normal heart sound present GI: COMMON NORMALS: Normal to inspection, nondistended, normoactive bowel sounds present, Soft to palpation and non-tender PALPATION: Yes Soft to palpation Extremity: COMMON NORMALS: no joint enlargement and no pedal edema Neuro: COMMON NORMALS: moves all extremities Skin: COMMON NORMALS: no rashes or lesions noted NARRATIVE SKIN EXAM: Without splinter hemorrhages. Right thumb fingernail with what appears to be a nevus which she reports is chronic, will benefit from follow-up with dermatology. GENERAL SKIN EXAM: no rashes or lesions noted Urinary Catheter Management: Quigley: Cath Placed During This Visit: no Reason for Continuing Indwelling Catheter: Other Data 09/24/25 09:55 09/24/25 03:50 Micro: Microbiology 09/21/25 01:32 Blood Culture - Final Blood NO GROWTH AFTER 5 DAYS 09/21/25 00:21 Blood Culture - Final Blood NO GROWTH AFTER 5 DAYS 09/22/25 15:09 Mycobacterial Smear - Preliminary Body Fluids - Pleura A&P Assessment and plan 1. Comfort measures only status: Continue with comfort measures. Reviewed pain assessment, not in pain. Appears comfortable currently. Discussed with nursing Discussed with nursing, case management. Further consideration of setting of continued comfort measures as per family wishes and capability. To be followed up by case management. 2. Acute hypoxic respiratory failure: Recurrent aspiration with worsening respiratory failure yesterday, with recurrence of atrial fibrillation with RVR, generally weak. Has not made significant improvement. In accordance with his prior wishes per discussion with family transition to hospice/comfort care. Transfer to preservers. Acute care orders discontinued. Comfort measures added. Discussed with residential case manager, will further discuss with patient and family with regards to options and preferences for the location of continuation of end-of-life care. 3. Acute blood loss anemia: 4. Aortic valve mass: 5. Dysphagia: Pleasure feeds, resume dysphagia diet. 6. Shock: 7. Acute kidney injury superimposed on CKD: 8. Atrial fibrillation with RVR: 9. Cardiomyopathy: New decrease in EF down to 45%. 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 Troponin series with moderate elevation, without significant up or downtrend. Possible prehospitalization HI. Reviewed echocardiogram, discussed with cardiology. Appreciate consultation. No plan for coronary angiography at this time, consideration possibly at a later date. 10. Cardiogenic shock: 11. Community acquired bacterial pneumonia: 12. CVA, old, cognitive deficits: 13. Weakness: Plan: Acute metabolic encephalopathy secondary to hypoxia following episode of additional aspiration. 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 PDMP PDMP Reviewed: Not Reviewed Attestations 2 Medical Necessity Statement*: Continue hospitalization for with end-of-life/comfort care and arrangements. and Moderate MDM includes amount and/or complexity of data reviewed/ordered [ other healthcare professional discussion] as documented Diagnoses Comfort measures only status Z51.5 Acute hypoxic respiratory failure J96.01 Acute blood loss anemia D62 Aortic valve mass I35.8 Dysphagia R13.10 Shock R57.9 Acute kidney injury superimposed on CKD N17.9; N18.9 Atrial fibrillation with RVR I48.91 Cardiomyopathy I42.9 Cardiogenic shock R57.0 Community acquired bacterial pneumonia J15.9 CVA, old, cognitive deficits I69.319 Weakness R53.1
[2025-09-27] MEDS: morphine 4 mg/mL SDV 1 mL IVP (03:19)
[2025-09-27] MEDS: atropine 1% op soln 2 mL Btl 3 DROP SUBLINGUAL (04:08)
--- NOTE | 2025-09-27 06:09 | PC.NURSE ---
Expiration Patient without pulse or respirations at 0530, verified by this nurse and Dimitri Romero RN at bedside. Patient , Rachel, notified by charge nurse Kenia at 0535 of patient's . Family reports they will be to hospital before 0700. Dr. Loving notified by EVELINA Aquino at 0536 of patient . highway maintenance supervisor, Martita, notified by EVELINA Aquino at 0540 of patient . Post mortem care provided by this nurse and ARSENIO Galan at 0545. All IV lines and catheters removed at this time, bed bath and clean linens provided. Patient laid flat with one pillow under head. MTS notified by EVELINA Aquino at [phone]. Family home of choice is [facility]. Awaiting family arrival at this time.
--- NOTE | 2025-09-27 06:23 | PC.NURSE ---
[facility] MTS notified of patient at 0603, TOD is 0530. This nurse spoke with Modesta [facility] Coordinator who confirms that patient is not a candidate for MTS or [facility] services. Patient may be released to home when family is ready. Marshmallow Machine Worker, Martita, notified.
--- NOTE | 2025-09-27 06:55 | PC.NURSE ---
Home Family at bedside, signed body release form for [facility]. Bag containing patient clothing and glasses taken by patient son. [facility] notified by this nurse at this time for pickup.
--- NOTE | 2025-09-27 07:33 | P.DES_ITS ---
Discharge Providers DDS Date of Admission: 09/21/25 02:00 Date Summary Completed: 09/28/25 Attending Provider at Admission: Dwight Loving MD Time of : 05:30 Attending Provider at Discharge: Alberto Wan Primary Care Provider: Jorge Alberto Snyder MD DS Diagnoses Hospital Diagnoses 1. Comfort measures only status: 2. Acute hypoxic respiratory failure: 3. Acute blood loss anemia: 4. Aortic valve mass: 5. Dysphagia: 6. Shock: 7. Acute kidney injury superimposed on CKD: 8. Atrial fibrillation with RVR: 9. Cardiomyopathy: 10. Cardiogenic shock: 11. Community acquired bacterial pneumonia: 12. CVA, old, cognitive deficits: 13. Weakness: Reason for Visit Reason for Visit WEAKNESS Brief History: Salbador Blankenship is a 89 year old male with history significant for atrial fibrillation(maintained on full dose aspirin), prior CVA with left-sided weakness, HTN, and CKD, who presented complaints of weakness. History is gathered from the patient and spouse separately. I am told the patient was fearful of getting up and going to the bathroom. Spouse reports he has had frequent falls. On the evening prior to my encounter, spouse called the fire department to help mobilize the patient. At some point, EMS was called and he was delivered to our facility. RN reports the patient was hypoxic in the 80s with EMS and had elevated heart rates. Patient mentions he felt like he had the flu two days ago with complaints of malaise, muscle aches, and a single episode of vomiting. Patient denies chest pain, palpitations, shortness of breath, diarrhea, or abdominal pain. Patient mentions he has been taking his medications routinely but spouse says this is not the case and that he has had poor oral intake as of late Summary Date and Time of Date of : 09/27/25 Time of : 05:30 Summary Summary: Atrial fibrillation with RVR initially improved with conversion to sinus with amiodarone and was transition to oral amiodarone formulation. Initially some persistent pressor requirement, eventually weaned off pressor with resolution of shock. Echocardiogram obtained, with finding of new decrease of ejection fr action down to 45%, question of possible tachycardia induced cardiomyopathy, versus recent SC, consideration of further restratification, coronary angiography down the line by cardiology, as well as finding of aortic valve mass of 0.8 cm question of possible thrombotic mass with calcification versus vegetation. He remained afebrile, without leukocytosis. Without signs of embolic disease peripherally and or in the lungs, although did have multifocal pneumonia, this was found to be secondary to recurrent aspiration with aspiration pneumonitis and pneumonia for which he received treatment. Assessed by speech therapy, dysphagia diet optimized. During hospitalization also with DEEPAK on CKD. With persistent oxygen requirement, continue oxygen support, continues on anticoagulation with consideration of undiagnosed PE, as well as atrial fibrillation. However, with worsening anemia anticoagulation was stopped and switched to prophylactic heparin, continued on aspirin. However, due to development of melanotic stool and suspected GI bleed with acute anemia, required transfusion, and holding of aspirin and prophylactic heparin. With additional aspiration I again went into respiratory failure with worsening hypoxia, atrial fibrillation with RVR. Had difficulty weaning off oxygen. Treatments were switched to hospice and comfort measures in accordance to his previously expressed wishes as per family. He in comfort at 5:30 in the morning 12/. Additional Data Advance directives?: Yes Discharge Plan Discharge Patient Disposition: Condition: DS Attestations Time Spent in /Discharge Care*: greater than 30 min Quality - AMI: AMI present?: No Quality - Stroke: CVA present?: No Quality - VTE: VTE present?: No Coding Level of Care Code 49890 Total time (in minutes) for Discharge: 40 Diagnoses Comfort measures only status Z51.5 Acute hypoxic respiratory failure J96.01 Acute blood loss anemia D62 Aortic valve mass I35.8 Dysphagia R13.10 Shock R57.9 Acute kidney injury superimposed on CKD N17.9; N18.9 Atrial fibrillation with RVR I48.91 Cardiomyopathy I42.9 Cardiogenic shock R57.0 Community acquired bacterial pneumonia J15.9 CVA, old, cognitive deficits I69.319 Weakness R53.1
== END 2025-09-27 07:30 | disposition expired | DRG 166 ==
LOC: ER 09-21 01:46 → CSU 09-21 02:11 → ICU 09-21 04:58 → MEDSURG 09-25 00:09
PROVIDERS: Student in an Organized Health Care Education/Training Program; Admitting Provider Family Medicine; Emergency Provider Family Medicine; PCP Family Medicine; Visit Provider Internal Medicine
DX: J18.9 Pneumonia, unspecified organism (principal); G93.41 Metabolic encephalopathy; J96.01 Acute respiratory failure with hypoxia; I50.21 Acute systolic (congestive) heart failure; D62 Acute posthemorrhagic anemia; N17.9 Acute kidney failure, unspecified; K92.2 Gastrointestinal hemorrhage, unspecified; I69.354 Hemiplegia and hemiparesis following cerebral infarction affecting left non-dominant side; I48.91 Unspecified atrial fibrillation; Z51.5 Encounter for palliative care; I35.9 Nonrheumatic aortic valve disorder, unspecified; R13.10 Dysphagia, unspecified; N18.9 Chronic kidney disease, unspecified; R57.0 Cardiogenic shock; I69.319 Unspecified symptoms and signs involving cognitive functions following cerebral infarction; I13.10 Hypertensive heart and chronic kidney disease without heart failure, with stage 1 through stage 4 chronic kidney disease, or unspecified chronic kidney disease; Z79.82 Long term (current) use of aspirin; Z66 Do not resuscitate; D22.61 Melanocytic nevi of right upper limb, including shoulder; Z99.81 Dependence on supplemental oxygen; J69.0 Pneumonitis due to inhalation of food and vomit
CPT/HCPCS: 32555; 36415; 36416; 36430; 36600; 51798; 71045; 74174; 76604; 76770; 80051; 80053; 80202; 80503; 81001; 82042; 82274; 82330; 82533; 82805; 82962; 83605; 83615; 83880; 83986; 84145; 84157; 84484; 85014; 85025; 85610; 85730; 86850; 86900; 86920; 87015; 87040; 87070; 87075; 87077; 87116; 87186; 87205; 87206; 87801; 88112; 88305; 89050; 92507; 92523; 92526; 92610; 93005; 93306; 94799; 96365; 96366; 96367; 96372; 96375; 96376; 97161; 97165; 97530; 97535; 99291; A4222; J0282; J0283; J0456; J0696; J0834; J1160; J1265; J1644; J1938; J2270; J2470; J3373; J3490; J7050; J9999; P9016; P9035